=== PATIENT | male | born 1945 | race Caucasian/White ===

== ENCOUNTER → 2018-08-07 | Outpatient (CLI) | payer MEDICARE, OTHER ==
[~2018-08-07] MED LIST: IOHEXOL 350 MG/ML 100 ML (OMNIPAQUE 350) VIAL IV ONE; NS 250 ML (IVPB) BAG IV ONE; RECEIVED CONTRAST (Hold Metformin) IV SCH
[2018-08-07 07:52] LABS: CREATININE SERUM 1.25 MG/DL (0.60-1.30)
--- NOTE | 2018-08-07 09:39 | Diagnostic Imaging Report ---
PROCEDURE: CT head with and without contrast. TECHNIQUE: Multiple contiguous axial images were obtained through the brain before and after the administration of intravenous contrast. INDICATION: Atrial fibrillation and melanoma. No prior studies are available for comparison. Ventricles and sulci are consistent with the patient's age. No sulcal effacement, midline shift or hemorrhage is detected. No abnormal enhancement following contrast administration is identified. Cisterns are patent. The visualized paranasal sinuses are clear. IMPRESSION: Unremarkable pre-and postcontrast CT of the brain. Dictated by: Dictated on workstation # [id number]
== END ==
LOC: RAD 07:26
PROVIDERS: ATTEND Internal Medicine Cardiovascular Disease
DX: C43.9 Malignant melanoma of skin, unspecified (principal); E66.9 Obesity, unspecified; I48.91 Unspecified atrial fibrillation
CPT/HCPCS: 36415; 70470; 82565; 84520

== ENCOUNTER 2022-02-22 13:12 | Emergency (ER) | payer MEDICARE, OTHER ==
[~2022-02-22] VITALS: Ht 186 cm; Wt 106.6 kg
[2022-02-22] MEDS ORDERED: LIDOCAINE/EPI 1%-1:100,000 (XYLOCAINE) 10 ML ONE (13:45)
--- NOTE | 2022-02-22 13:56 | ED Fall/Injury ---
General Chief Complaint: Trauma-Non Activation Stated Complaint: FALL Source: patient, family Exam Limitations: no limitations (ELLEN RAYMUNDO) History of Present Illness Date Seen by Provider: February 22, 2022 Time Seen by Provider: 13:54 Initial Comments Patient is a 76-year-old male with a history of dementia presents ED by EMS for head injury, left knee pain, left shoulder pain. Patient fell this afternoon within the past hour. Patient was supposedly walking down a slope when he slipped hitting the concrete with his face resulting in a forehead abrasion and abrasion to his nose. According to at bedside she states they were at [employer] and she lost track of him. Patient states he was going to the bathroom but never returned. He was found wandering. Patient cannot recall how he got there. History of falls in the past. According to family they are concerned that patient may have underlying dementia and possible previous stroke. Acc ording to patient's son of a aneurysm. Patient is on Eliquis currently for 1 week. Patient reports some mild facial pain secondary to the fall. He states the left knee and left shoulder has some mild pain and discomfort but normal range of motion. Mild bleeding to the nose. Denies any back pain, chest pain, shortness of breath, abdominal pain, visual changes, unilateral muscle weakness or sensory changes, ear pain fever, chills, visual changes. Alert and orient x3. Patient moving all extremities without difficulties. According to she feels like patient is at his current baseline. (ELLEN RAYMUNDO) Allergies and Home Medications Allergies Coded Allergies: No Allergy Information Available (Unverified , 08/07/18) Patient Home Medication List Home Medication List Reviewed: Yes (ELLEN RAYMUNDO) Review of Systems Review of Systems Constitutional: No chills, No diaphoresis, No malaise, No weakness Eyes: Denies Blurred Vision, Denies Decreased Acuity, Denies Photophobia, Denies Previous Injury, Denies Vision Changes Ears, Nose, Mouth, Throat: denies ear pain, denies ear discharge, denies nose discharge, denies mouth pain Respiratory: No cough, No dyspnea on exertion Cardiovascular: No chest pain, No edema, No palpitations Gastrointestinal: No abdominal pain, No diarrhea, No nausea, No vomiting Genitourinary: No decreased output Skin: other (Abrasion, laceration) (ELLEN RAYMUNDO) All Other Systems Reviewed Negative Unless Noted: Yes (ELLEN RAYMUNDO) Physical Exam Vital Signs Vital Signs - First Documented 02/22/22 13:15 Temp 37.1 Pulse 92 Resp 20 B/P (MAP) 147/112 (124) Pulse Ox 97 (MEY RODRIGUEZ MD) Vital Signs Capillary Refill : (ELLEN RAYMUNDO) Height, Weight, BMI Height: '" Weight: lbs. oz. kg; BMI Method: General Appearance: WD/WN, no apparent distress HEENT: PERRL/EOMI, normal ENT inspection, TMs normal, pharynx normal, other (No bleeding in the ear canal or bleeding behind the ears.) Neck: other (C-collar in place) Cardiovascular: regular rate, rhythm, no edema, no gallop, no JVD Respiratory: chest non-tender, lungs clear, normal breath sounds, no respiratory distress Gastrointestinal: normal bowel sounds, non tender, soft, no organomegaly, no pulsatile mass Back: normal inspection, no CVA tenderness, no vertebral tenderness Extremities: other (Tenderness to palpate left anterior knee with abrasion. Mild swelling. Normal passive and active range of motion. No obvious bone deformity. Tenderness to left anterior shoulder with normal range of motion with pain and discomfort. No obvious bone deformity. Neurovascular intact. 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 Mild bleeding to the anterior nasal bridge. Skin abrasion noted overlying the nasal bridge.) (ELLEN RAYMUNDO) Mulberry Coma Score Best Eye Response: (4) Open Spontaneously Best Verbal Response: (5) Oriented Best Motor Response: (6) Obeys Commands Nancy Total: 15 (ELLEN RAYMUNDO) Procedures/Interventions Wound Location: Nose Other Wound Location nose Wound Length (cm): 1 Wound's Depth, Shape: superficial Wound Explored: clean Irrigated w/ Saline (ccs): 100 Betadine Prep?: Yes Anesthesia: 1% Lidocaine Volume Anesthetic (ccs): 1 Suture: Ethlion Number of Sutures: 3 Layer Closure?: 1 2 superficial sutures were placed. One purse string stitch to help with bleed. (ELLEN RAYMUNDO) Progress/Results/Core Measures Results/Orders Lab Results Laboratory Tests Test 02/22/22 13:25 Range/Units White Blood Count 7.4 4.3-11.0 10^3/uL Red Blood Count 4.71 4.30-5.52 10^6/uL Hemoglobin 13.3 13.3-17.7 g/dL Hematocrit 41 40-54 % Mean Corpuscular Volume 87 80-99 fL Mean Corpuscular Hemoglobin 28 25-34 pg Mean Corpuscular Hemoglobin Concent 33 32-36 g/dL Red Cell Distribution Width 14.6 H 10.0-14.5 % Platelet Count 189 130-400 10^3/uL Mean Platelet Volume 10.4 9.0-12.2 fL Immature Granulocyte % (Auto) 0 % Neutrophils (%) (Auto) 64 42-75 % Lymphocytes (%) (Auto) 25 12-44 % Monocytes (%) (Auto) 9 0-12 % Eosinophils (%) (Auto) 1 0-10 % Basophils (%) (Auto) 0 0-10 % Neutrophils # (Auto) 4.8 1.8-7.8 10^3/uL Lymphocytes # (Auto) 1.8 1.0-4.0 10^3/uL Monocytes # (Auto) 0.7 0.0-1.0 10^3/uL Eosinophils # (Auto) 0.1 0.0-0.3 10^3/uL Basophils # (Auto) 0.0 0.0-0.1 10^3/uL Immature Granulocyte # (Auto) 0.0 0.0-0.1 10^3/uL Prothrombin Time 16.5 H 12.2-14.7 SEC INR Comment 1.3 0.8-1.4 Activated Partial Thromboplast Time 34 24-35 SEC Sodium Level 141 135-145 MMOL/L Potassium Level 3.5 L 3.6-5.0 MMOL/L Chloride Level 103 98-107 MMOL/L Carbon Dioxide Level 23 21-32 MMOL/L Anion Gap 15 H 5-14 MMOL/L Blood Urea Nitrogen 25 H 7-18 MG/DL Creatinine 1.25 0.60-1.30 MG/DL Estimat Glomerular Filtration Rate 60 BUN/Creatinine Ratio 20 Glucose Level 129 H 70-105 MG/DL Calcium Level 10.1 8.5-10.1 MG/DL Corrected Calcium 10.3 H 8.5-10.1 MG/DL Total Bilirubin 1.1 H 0.1-1.0 MG/DL Aspartate Amino Transf (AST/SGOT) 25 5-34 U/L Alanine Aminotransferase (ALT/SGPT) 23 0-55 U/L Alkaline Phosphatase 77 40-136 U/L Total Protein 6.5 6.4-8.2 GM/DL Albumin 3.8 3.2-4.5 GM/DL (MEY RODRIGUEZ MD) Medications Given in ED Current Medications Medications Dose Ordered Sig/Eliezer Route Start Time Stop Time Status Last Admin Dose Admin Diphtheria/ Tetanus/Acell Pertussis 0.5 ml ONCE ONCE IM 02/22/22 15:45 02/22/22 15:46 DC 02/22/22 15:49 0.5 ML Lidocaine/ Epinephrine 10 ml STK-MED ONCE .ROUTE 02/22/22 13:45 02/22/22 13:47 DC 02/22/22 13:46 2 ML (MEY RODRIGUEZ MD) Vital Signs/I&O 02/22/22 02/22/22 13:15 15:45 Temp 37.1 Pulse 92 100 Resp 20 14 B/P (MAP) 147/112 (124) 140/88 Pulse Ox 97 96 (MEY RODRIGUEZ MD) Departure Communication (PCP) Patient with a fall today. Unclear the cause of the fall likely mechanical with a history of fall. Patient on arrival neurologically intact. Moving all extremities. Alert and orient x3. GCS 15. Does have abrasion to the forehead and active bleeding to the nasal bridge. Stitch a pursestring stitch to control bleeding. Patient was placed on Eliquis 1 week ago. Patient was placed in c- collar by EMS. Denies of any thoracic or lumbar midline tenderness. No chest pain, short of breath or abdominal pain. Complain of left shoulder left knee pain with some mild. X-rays of left shoulder and ankle are unremarkable. Radiology called concern for acute hemorrhaging in the right occipital lobe with small amount in the right lateral ventricle. No midline shift. Mild edema with mild mass-effect. C-collar was removed secondary to negative CT scan of the cervical spine. C-collar removed and cleared. Does have a nasal bone fracture without evidence of nasal septal hematoma at this time.. Patient was given a tetanus shot. Patient will be transferred by air secondary to no ground assets at this time to [facility]. Discussed patient with Dr. Dejesus neurosurgery at [facility] who recommends transfer to the ER. Discussed patient with Dr. Russell ER physician who will accept patient there in the ER. Blood pressure at discharge 140/88 at discharge. Neurologically intact (ELLEN RAYMUNDO) Impression Primary Impression: Brain bleed Disposition: XFER SHT-TRM HOSP Condition: Stable Transfer Transfer Reason: Exceeds level of care Time Spoke to Accepting Phy: 15:42 Transfer Progress Notes Patient will be transferred via air to accepting physician Dr. Russell ER physician. Patient was discussed with Dr. Dejesus neurosurgery who recommends transfer at this time Transfer Time: 15:42 Transfer Facility: [facility] Method of Transfer: Air (ELLEN RAYMUNDO) Departure-Patient Inst. Referrals: MARY HARRIS MD (PCP/Family) Primary Care Physician ATTENDING PHYSICIAN NOTE: I was physically present as attending physician in the emergency department during the care of this patient, but I was not directly involved in the decision making or delivery of care for this patient. Dr. Lomas, trauma surgeon on- call, was notified of transfer and agreeable. (MEY RODRIGUEZ MD) ELLEN RAYMUNDO February 22, 2022 13:56 MEY RODRIGUEZ MD February 22, 2022 19:43
[2022-02-22 14:10] LABS: BASOPHILS % (AUTO) 0 % (0-10); EOSINOPHILS # (AUTO) 0.1 10^3/uL (0.0-0.3); EOSINOPHILS % (AUTO) 1 % (0-10); HEMATOCRIT 41 % (40-54); HEMOGLOBIN 13.3 g/dL (13.3-17.7); LYMPHOCYTES # (AUTO) 1.8 10^3/uL (1.0-4.0); LYMPHOCYTES % (AUTO) 25 % (12-44); MEAN CORPUSCULAR HEMOGLOBIN 28 pg (25-34); MEAN CORPUSCULAR HGB CONC 33 g/dL (32-36); MEAN CORPUSCULAR VOLUME 87 fL (80-99); MEAN PLATELET VOLUME 10.4 fL (9.0-12.2); MONOCYTES # (AUTO) 0.7 10^3/uL (0.0-1.0); MONOCYTES % (AUTO) 9 % (0-12); NEUTROPHILS # (AUTO) 4.8 10^3/uL (1.8-7.8); NEUTROPHILS % (AUTO) 64 % (42-75); PLATELET COUNT 189 10^3/uL (130-400); WHITE BLOOD COUNT 7.4 10^3/uL (4.3-11.0)
[2022-02-22 14:14] LABS: ALBUMIN 3.8 GM/DL (3.2-4.5); INR 1.3 (0.8-1.4); PROTHROMBIN TIME PATIENT 16.5 SEC (12.2-14.7)
[2022-02-22 14:15] LABS: POTASSIUM 3.5 MMOL/L (3.6-5.0)
[2022-02-22 14:16] LABS: CALCIUM 10.1 MG/DL (8.5-10.1)
[2022-02-22 14:17] LABS: TOTAL PROTEIN 6.5 GM/DL (6.4-8.2)
[2022-02-22 14:19] LABS: BILIRUBIN,TOTAL 1.1 MG/DL (0.1-1.0)
[2022-02-22 14:21] LABS: CREATININE SERUM 1.25 MG/DL (0.60-1.30)
--- NOTE | 2022-02-22 14:34 | Diagnostic Imaging Report ---
INDICATION: Fall with pain FINDINGS: Three view left shoulder reveals acromioclavicular and glenohumeral osteoarthritis. No fracture or joint separation; however, no opaque loose body. No bony erosion. The left lung, visualized ribs and pleura are unremarkable. IMPRESSION: Arthritic changes but no acute-appearing abnormality. Dictated by: Dictated on workstation # [id number]
--- NOTE | 2022-02-22 14:39 | Diagnostic Imaging Report ---
INDICATION: Fall with pain. FINDINGS: The lateral view showed no convincing evidence for a joint effusion. There is tricompartmental arthritis and meniscal calcifications laterally. Some spurring off the patellar poles and relatively mild lateral greater than medial tibiofemoral compartmental arthritic joint space narrowing. No suspicious foreign body. No loose body. No fracture. IMPRESSION: Degenerative changes as described. No fracture or acute-appearing abnormality apparent. Dictated by: Dictated on workstation # [id number]
--- NOTE | 2022-02-22 15:11 | Diagnostic Imaging Report ---
PROCEDURE: CT head, face, and cervical spine without contrast. TECHNIQUE: Multiple contiguous axial images were obtained through the head, neck, and facial bones without the use of intravenous contrast. Sagittal and coronal reformations through the cervical spine and facial bones were also performed. Auto Exposure Controls were utilized during the CT exam to meet ALARA standards for radiation dose reduction. DATE: February 22, 2022. COMPARISON: CT head August 07, 2018. INDICATION: 76-year-old male, fall. Head and neck pain. FINDINGS: There is no identified skull fracture. There is proportional prominence of the ventricles and additional CSF spaces consistent with mild cerebral volume loss. There is an acute intraparenchymal hemorrhage involving the right occipital lobe with adjacent edema and associated mild mass effect. The overall size of the area of acute blood product measures approximately 5.8 x 2.9 x 2.7 cm. There is likely extension of a small amount of blood product into the right lateral ventricle. There is no hydrocephalus. There is no identified subdural or epidural hematoma. The temporomandibular joints are normally aligned. The mandible is intact. There is a mildly displaced right nasal bone fracture and a mildly displaced left nasal bone fracture. There is associated adjacent soft tissue swelling. There is deviation of the bony nasal septum to the right of midline. There is no additional identified acute maxillofacial bone fracture. The globes are grossly intact. There is no retro-orbital hematoma. There is no identified facet joint subluxation or dislocation. There are advanced left facet degenerative changes at C4-C5. There is no asymmetric widening of the cervical disc spaces. There is no prominent prevertebral soft tissue swelling. There are multilevel disc degenerative changes of the cervical spine. There are multilevel posterior disc osteophyte complexes. CT is limited for assessment of disc pathology as well as additional nonbony causes of pathology in the spinal canal. There is chondrocalcinosis. There is arthritis at the C1-C2 articulation. There is no identified acute fracture of the cervical spine. IMPRESSION: 1. Acute hemorrhage involving the right occipital lobe with adjacent edema and mild mass effect. No midline shift. There is extension of a small amount of blood product into the right lateral ventricle without hydrocephalus. This potentially could reflect a hemorrhagic contusion or other hemorrhagic lesion including underlying neoplasm or vascular malformation. Follow-up pre and post contrast MRI brain when clinically appropriate is recommended. 2. Mildly displaced fractures of the right and left nasal bones. 3. No identified acute fracture of the cervical spine. 4. Multilevel advanced degenerative changes of the cervical spine. Findings called at 1454 hours on February 22, 2022. Dictated by: Dictated on workstation # [id number]
[2022-02-22 15:45] VITALS: BP 140/88
[2022-02-22] MEDS ORDERED: TETANUS,DIPTH,PERTUSS P/F (BOOSTRIX) 0.5 ML VIAL IM ONE (15:45)
== END 2022-02-22 15:58 | disposition short-term general hospital (02) ==
LOC: EDUNIT# 13:12 → ER 13:13
DX: S02.2XXA Fracture of nasal bones, initial encounter for closed fracture (principal); S00.81XA Abrasion of other part of head, initial encounter; S80.212A Abrasion, left knee, initial encounter; M25.512 Pain in left shoulder; F03.90 Unspecified dementia, unspecified severity, without behavioral disturbance, psychotic disturbance, mood disturbance, and anxiety; Z23 Encounter for immunization; Z91.81 History of falling; Z79.01 Long term (current) use of anticoagulants; W01.198A Fall on same level from slipping, tripping and stumbling with subsequent striking against other object, initial encounter
CPT/HCPCS: 36415; 70450; 70486; 72125; 73030; 73562; 80053; 85025; 85610; 85730; 90715

== ENCOUNTER 2022-11-10 01:33 | Inpatient (IN) | payer MEDICARE, OTHER ==
[~2022-11-10] VITALS: Ht 177.8 cm; Wt 89.1 kg
[2022-11-10] VITALS (7 sets, daily range): BP systolic 75–132; BP diastolic 51–78
[2022-11-10] MEDS ORDERED: LIDOCAINE UROJET 2% GEL 10 ML PKG TOP ONE (01:45)
[2022-11-10] MEDS ORDERED: NS IV 1000 ML 1,000 ML IV SCH (01:45)
[2022-11-10 01:48] LABS: ABG BASE EXCESS -2.2 MMOL/L (-2.5-2.5); ABG OXYGEN SATURATION 100 % (94-100); ABG PCO2 36 MMHG (35-45); ABG PO2 173 MMHG (79-93); ABG TCO2 22.9 MMOL/L (21.0-31.0)
[2022-11-10 01:49] LABS: ALLENS TEST YES-POS; INSPIRED O2 15L; PATIENT TEMP 37.1; VENTILATOR NO
[2022-11-10 01:59] LABS: BASOPHILS # (AUTO) 0.1 10^3/uL (0.0-0.1); BASOPHILS % (AUTO) 0 % (0-10); EOSINOPHILS % (AUTO) 0 % (0-10); HEMATOCRIT 37 % (40-54); HEMOGLOBIN 11.5 g/dL (13.3-17.7); LYMPHOCYTES # (AUTO) 0.8 10^3/uL (1.0-4.0); LYMPHOCYTES % (AUTO) 5 % (12-44); MEAN CORPUSCULAR HEMOGLOBIN 28 pg (25-34); MEAN CORPUSCULAR HGB CONC 31 g/dL (32-36); MEAN CORPUSCULAR VOLUME 90 fL (80-99); MEAN PLATELET VOLUME 9.7 fL (9.0-12.2); MONOCYTES # (AUTO) 0.5 10^3/uL (0.0-1.0); MONOCYTES % (AUTO) 4 % (0-12); NEUTROPHILS # (AUTO) 13.5 10^3/uL (1.8-7.8); NEUTROPHILS % (AUTO) 90 % (42-75); PLATELET COUNT 289 10^3/uL (130-400); WHITE BLOOD COUNT 15.1 10^3/uL (4.3-11.0)
--- NOTE | 2022-11-10 02:03 | ED General ---
General Chief Complaint: Unresponsive Stated Complaint: UNRESPONSIVE Nursing Triage Note: PT TO RM 3 VIA [facility] FROM HOME. EMS REPORTS PT HAS BEEN UNRESPONSIVE X2 HRS, 100J CARDIOVERSION BY EMS EN ROUTE TO ED. PT NONVERBAL AT BASELINE. 20G L AC SL INITIATED BY EMS, PATENT UPON ARRIVAL TO ED W 1L NS INFUSING. History of Present Illness Date Seen by Provider: Nov 10, 2022 Time Seen by Provider: 01:33 Initial Comments PT ARRIVES VIA [facility] FROM HOME PT HAS BEEN UNRESPONSIVE FOR THE LAST FEW HOURS (ONSET IS UNKNOWN) EMS REPORT THAT THEY WERE TOLD THAT HE WAS "NORMAL ON FRIDAY" EMS REPORT THAT PT HAD HEART RATE 180'S-190'S, WITH BP 80/40, AND THE ATTEMPTED CARDIOVERSION X 1 AT 100 J. PT WITH LABORED BREATHING, AND EMS PLACED PT ON 15 L/ NRB MASK. THEY DID NOT REPORT WHAT INITIAL O2 SATURATION WAS. BLOOD GLUCOSE 249 FOR EMS. EMS REPORT THAT PT IS NON-VERBAL AT BASELINE, AND HAS HISTORY OF DEMENTIA, AND STROKES. SPOKE WITH AND SON SHORTLY AFTER PT'S ARRIVAL, BOTH ARE EXTREMELY POOR HISTORIANS. THEY DO NOT KNOW HIS MEDICATIONS OR ANY OF HIS DIAGNOSES. STATES THAT HE HAS BEEN "GURGLING" ALL DAY / Friday11/09/22-SINCE HE WOKE UP SHE CLAIMS THAT HE ATE DINNER AROUND [phone] AND "WAS FINE". SOMETIME AFTER THAT HE HAD DECREASED MENTAL STATUS AND WOULD NOT RESPOND-- HAS NO IDEA WHEN THIS STARTED. IT IS VERY UNCLEAR AND VERY DIFFICULT TO OBTAIN FROM PT'S AND SON WHAT PT'S BASELINE MENTAL FUNCTION IS. PCP: DR. HARRIS Allergies and Home Medications Allergies Coded Allergies: No Known Allergies (Verified Allergy, Unknown, 11/10/22) Patient Home Medication List Home Medication List Reviewed: Yes Amlodipine Besylate (Amlodipine Besylate) 5 Mg Tablet, 5 MG PO DAILY, (Reported) Entered as Reported by: OSMANY MOTTA on 11/11/221539 Last Action: Continued Atenolol (Atenolol) 50 Mg Tablet, 50 MG PO DAILY, (Reported) Entered as Reported by: OSMANY MOTTA on 11/11/221539 Last Action: Converted Furosemide (Furosemide) 20 Mg Tablet, 20 MG PO DAILY, (Reported) Entered as Reported by: OSMANY MOTTA on 11/11/221539 Last Action: Continued Gabapentin (Gabapentin) 100 Mg Capsule, 200 MG PO BID, (Reported) Entered as Reported by: OSMANY MOTTA on 11/11/221539 Last Action: Continued Lorazepam (Lorazepam Intensol) 2 Mg/Ml Oral.conc, 0.5 ML PO Q2H PRN for AGITATION OR ANXIETY Prescribed by: DEMAR MCCLAIN on 11/20/22 105 Memantine HCl (Memantine HCl) 10 Mg Tablet, 10 MG PO BID, (Reported) Entered as Reported by: OSMANY MOTTA on 11/11/221539 Last Action: Reviewed Mirtazapine (Mirtazapine) 7.5 Mg Tablet, 7.5 MG PO HS, (Reported) Entered as Reported by: OSMANY MOTTA on 11/11/221539 Last Action: Converted Morphine Sulfate (Morphine Conc. 20mg/ml) 100 Mg/5 Ml (20 Mg/Ml) Solution, 0.5 ML PO Q2H PRN for PAIN OR AIR HUNGER Prescribed by: DEMAR MCCLAIN on 11/20/22 105 Olanzapine (Olanzapine Odt) 5 Mg Tab.rapdis, 5 MG PO BID, (Reported) Entered as Reported by: OSMANY MOTTA on 11/11/221539 Last Action: Continued Tamsulosin HCl (Flomax) 0.4 Mg Cap, 0.4 MG PO HS, (Reported) Entered as Reported by: OSMANY MOTTA on 11/11/221539 Last Action: Continued Review of Systems Review of Systems Constitutional: other (UNABLE TO OBTAIN) Past Wflefgs-Qgecvs-Pxzdhy Hx Patient Social History Smoking Status: Unknown if Ever Smoked Smokeless Tobacco Frequency: Unknown if Ever Used Use of E-Cig and/or Vaping dev: Unable to obtain Use of E-Cig and/or Vaping Seb: Unknown if Ever Used Substance use?: Unable to obtain Alcohol Use?: Unable to obtain Pt feels they are or have been: Unable to obtain Immunizations Up To Date First/Initial COVID19 Vaccinat: UNK Second COVID19 Vaccination Naresh: UNK Third COVID19 Vaccination Date: K COVID19 Vaccine Branch Service Leader: UNK Past Medical History Surgery/Hospitalization HX: DEMENTIA, NONVERBAL, CVA Nursing Suicide Risk Notes: PT UNRESPONSIVE AND NONVERBAL - UNABLE TO ASK Physical Exam Vital Signs Capillary Refill : Less Than 3 Seconds Height, Weight, BMI Height: '" Weight: lbs. oz. kg; 23.00 BMI Method: General Appearance: Severe Distress, Other (PT IS MOANING AT TIMES, OTHEWISE IS UNRESPONSIVE. KEEPS EYES CLOSED. THERE IS A GAIT BELT IN PLACE AROUND HIS ABDOMEN/CHEST. PT DOES HAVE SPONTANEOUS MOVEMENT OF ALL EXTREMITIES BUT IS NOT TALKING OR FOLLOWING ANY COMMANDS OR COMMUNICATING IN ANY WAY. PT IS MALODOROOUS AND VERY UNKEMPT. ) HEENT: PERRL/EOMI Respiratory: Respiratory Distress, Other (SIGNIFICANT UPPER AIRWAY NOISE--UNABLE TO DETERMINE LOWER LUNG SOUNDS, THERE IS SIGNIFICANT UPPER AIRWAY NOISE. ) Cardiovascular: No JVD, Irregularly Irregular, Tachycardia Gastrointestinal: No Pulsatile Mass, Soft Extremity: Other (FINGERS AND FEET VERY COLD, WITH DECREASED CAP REFILL. UNABLE TO PALPATE RADIAL OR PEDAL PULSES. ) Neurologic/Psychiatric: Other (MENTATION NOTED ABOVE. ) Skin: Cool, Pallor, Other Focused Exam Sepsis Stage: Septic Shock Possible Source: Other (PULMONARY AND SKIN/DECUBITUS ULCER) Lactate Level Time of Focused Exam: 02:30 Respiratory: Other (INTUBATED, WITH DIFFUSE RALES / RHONCHI BILATERALLY) Cardiovascular: Irregularly Irregular, Tachycardia Capillary Refill: Greater Than 3 Seconds Skin: cool, pallor Lactic Acid Level Laboratory Tests Test 11/10/22 01:36 Lactic Acid Level 6.12 MMOL/L (0.50-2.00) *H Within 3hrs of presentation: Admin fluids, Admin ABX, Blood cultures prior to ABX's, Focus exam, Lactate level, Vasopressin therapy Procedures/Interventions Intubation Method: orotracheal Tube Size: 7.5 Medications: Fentanyl, Succinylcholine, Versed Positive End Tide CO2: Yes Breath Sounds after Intubation: bilateral-equal Intubation Complications: no complications Post Intubation Xray: Yes SEE NURSING NOTES FOR DETAILS Additional Procedures: cardioversion/defib Progress PT IS IN ATRIAL FIBRILLATION WITH RVR WITH RATE IN 150'S -160'S ON ARRIVAL, AND IS HYPOTENSIVE. PT CARDIOVERTED AT 100 J THEN 150 J, WITH SUCCESSFUL CARDIOVERSION TO NORMAL SINUS RHYTHM. SEE NURSING NOTES FOR DETAILS Progress/Results/Core Measures Suspected Sepsis SIRS Temperature: Pulse: 135 Respiratory Rate: 30 Blood Pressure / Mean: Laboratory Tests 11/10/22 01:36: INR Comment 1.3 Results/Orders Lab Results Laboratory Tests Test 11/10/22 01:35 11/10/22 01:36 11/10/22 01:38 11/10/22 01:44 Range/Units Blood Gas Puncture Site RRAD Blood Gas Patient Temperature 37.1 Arterial Blood pH 7.40 7.37-7.43 Arterial Blood Partial Pressure CO2 36 35-45 MMHG Arterial Blood Partial Pressure O2 173 H 79-93 MMHG Arterial Blood HCO3 22 L 23-27 MMOL/L Arterial Blood Total CO2 22.9 21.0-31.0 MMOL/L Arterial Blood Oxygen Saturation 100 94-100 % Arterial Blood Base Excess -2.2 -2.5-2.5 MMOL/L Tanmay Test YES-POS Blood Gas Ventilator Setting NO Blood Gas Inspired Oxygen 15L White Blood Count 15.1 H 4.3-11.0 10^3/uL Red Blood Count 4.14 L 4.30-5.52 10^6/uL Hemoglobin 11.5 L 13.3-17.7 g/dL Hematocrit 37 L 40-54 % Mean Corpuscular Volume 90 80-99 fL Mean Corpuscular Hemoglobin 28 25-34 pg Mean Corpuscular Hemoglobin Concent 31 L 32-36 g/dL Red Cell Distribution Width 15.9 H 10.0-14.5 % Platelet Count 289 130-400 10^3/uL Mean Platelet Volume 9.7 9.0-12.2 fL Immature Granulocyte % (Auto) 1 % Neutrophils (%) (Auto) 90 H 42-75 % Lymphocytes (%) (Auto) 5 L 12-44 % Monocytes (%) (Auto) 4 0-12 % Eosinophils (%) (Auto) 0 0-10 % Basophils (%) (Auto) 0 0-10 % Neutrophils # (Auto) 13.5 H 1.8-7.8 10^3/uL Lymphocytes # (Auto) 0.8 L 1.0-4.0 10^3/uL Monocytes # (Auto) 0.5 0.0-1.0 10^3/uL Eosinophils # (Auto) 0.0 0.0-0.3 10^3/uL Basophils # (Auto) 0.1 0.0-0.1 10^3/uL Immature Granulocyte # (Auto) 0.1 0.0-0.1 10^3/uL Neutrophils % (Manual) 90 % Lymphocytes % (Manual) 5 % Monocytes % (Manual) 5 % Polychromasia SLIGHT Erythrocyte Sedimentation Rate 31 H 0-30 MM/HR Prothrombin Time 17.0 H 12.2-14.7 SEC INR Comment 1.3 0.8-1.4 Activated Partial Thromboplast Time 34 24-35 SEC D-Dimer 3.83 H 0.00-0.49 UG/ML Lactic Acid Level 6.12 *H 0.50-2.00 MMOL/L B-Type Natriuretic Peptide 1626.2 H <100.0 PG/ML Glucometer 171 H 70-110 MG/DL Influenza Type A (RT-PCR) Not Detected Not Detecte Influenza Type B (RT-PCR) Not Detected Not Detecte SARS-CoV-2 RNA (RT-PCR) Not Detected Not Detecte Sodium Level 153 H 135-145 MMOL/L Potassium Level 3.9 3.6-5.0 MMOL/L Chloride Level 114 H 98-107 MMOL/L Carbon Dioxide Level 21 21-32 MMOL/L Anion Gap 18 H 5-14 MMOL/L Blood Urea Nitrogen 52 H 7-18 MG/DL Creatinine 2.41 H 0.60-1.30 MG/DL Estimat Glomerular Filtration Rate 27 BUN/Creatinine Ratio 22 Glucose Level 188 H 70-105 MG/DL Calcium Level 9.7 8.5-10.1 MG/DL Corrected Calcium 10.4 H 8.5-10.1 MG/DL Magnesium Level 2.3 1.6-2.4 MG/DL Total Bilirubin 1.1 H 0.1-1.0 MG/DL Aspartate Amino Transf (AST/SGOT) 16 5-34 U/L Alanine Aminotransferase (ALT/SGPT) 21 0-55 U/L Alkaline Phosphatase 106 40-136 U/L Ammonia 10 L 11-32 UMOL/L Total Creatine Kinase 105 30-200 U/L Creatine Kinase MB 5.6 <6.6 NG/ML Myoglobin 1033.2 H 10.0-92.0 NG/ML Troponin I < 0.028 <0.028 NG/ML C-Reactive Protein High Sensitivity 10.94 H 0.00-0.50 MG/DL Total Protein 6.5 6.4-8.2 GM/DL Albumin 3.1 L 3.2-4.5 GM/DL Amylase Level 47 25-125 U/L Lipase 21 8-78 U/L TSH Cornish Testing 3.28 0.35-4.94 UIU/ML Serum Alcohol < 10 <10 MG/DL Test 11/10/22 02:02 11/10/22 02:45 Range/Units Urine Color YELLOW Urine Clarity CLEAR Urine pH 5.0 5-9 Urine Specific [place] 1.020 1.016-1.022 Urine Protein NEGATIVE NEGATIVE Urine Glucose (UA) NEGATIVE NEGATIVE Urine Ketones NEGATIVE NEGATIVE Urine Nitrite NEGATIVE NEGATIVE Urine Bilirubin NEGATIVE NEGATIVE Urine Urobilinogen 0.2 < = 1.0 MG/DL Urine Leukocyte Esterase NEGATIVE NEGATIVE Urine RBC (Auto) NEGATIVE NEGATIVE Urine RBC NONE /HPF Urine WBC NONE /HPF Urine Crystals NONE /LPF Urine Bacteria NEGATIVE /HPF Urine Casts NONE /LPF Urine Mucus NEGATIVE /LPF Urine Culture Indicated NO Urine Opiates Screen NEGATIVE NEGATIVE Urine Oxycodone Screen NEGATIVE NEGATIVE Urine Methadone Screen NEGATIVE NEGATIVE Urine Propoxyphene Screen NEGATIVE NEGATIVE Urine Barbiturates Screen NEGATIVE NEGATIVE Ur Tricyclic Antidepressants Screen NEGATIVE NEGATIVE Urine Phencyclidine Screen NEGATIVE NEGATIVE Urine Amphetamines Screen NEGATIVE NEGATIVE Urine Methamphetamines Screen NEGATIVE NEGATIVE Urine Benzodiazepines Screen NEGATIVE NEGATIVE Urine Cocaine Screen NEGATIVE NEGATIVE Urine Cannabinoids Screen NEGATIVE NEGATIVE Urine Legionella pneumophilia Ag Negative Lab Scanned Report Referred Lab Report [id number] Micro Results Microbiology 11/10/22 Gram Stain - Final, Complete 11/10/22 Sputum Culture - Final, Complete Staphylococcus aureus Staphylococcus aureus#2 Gram Pos Mixed Bacterial Guera 11/10/22 Gram Stain - Final, Complete 11/10/22 Wound Culture - Final, Complete Mixed Bacterial Guera With Staphylococcus aureus YEAST 11/10/22 Urine Culture - Final, Complete NO GROWTH 11/10/22 Blood Culture - Final, Complete No growth 11/10/22 Blood Culture - Final, Complete Staphylococcus epidermidis My Orders Orders - MARY HOLLINS DO Accucheck Stat ONCE (11/10/22 01:39) Ed Iv/Invasive Line Start (11/10/22 01:39) Ekg Tracing (11/10/22 01:39) Catheter(Urinary) Insert & Ass 03,15 (11/10/22 01:39) O2 (11/10/22 01:39) Monitor-Rhythm Ecg Trace Only (11/10/22 01:39) Ct Head Wo-R/O Stroke (11/10/22 01:39) Chest 1 View, Ap/Pa Only (11/10/22 01:39) Alcohol (2/5/23 01:39) Ammonia (11/10/22 01:39) Amylase (11/10/22 01:39) Arterial Blood Gas (11/10/22 01:39) Bnp Casey (11/10/22 01:39) Cbc With Automated Diff (11/10/22 01:39) Comprehensive Metabolic Panel (11/10/22 01:39) Creatine Kinase (11/10/22 01:39) Creatine Kinase Mb (11/10/22 01:39) Hs C Reactive Protein (11/10/22 01:39) Fibrin Degradation Products (11/10/22 01:39) Drug Screen Stat (Urine) (11/10/22 01:39) Lactic Acid Analyzer (11/10/22 01:39) Lipase (11/10/22 01:39) Magnesium (11/10/22 01:39) Protime With Inr (11/10/22 01:39) Partial Thromboplastin Time (11/10/22 01:39) Thyroid Analyzer (11/10/22 01:39) Ua Culture If Indicated (11/10/22 01:39) Erythrocyte Sedimentation Rate (11/10/22 01:39) Myoglobin Serum (11/10/22 01:39) Troponin I Casey (11/10/22 01:39) Ed Iv/Invasive Line Start (11/10/22 01:39) Ns Iv 1000 Ml (Sodium Chloride 0.9%) (11/10/22 01:45) Covid 19 Inhouse Test (11/10/22 01:39) Lidocaine 2% (Urojet) (Xylocaine Urojet) (11/10/22 01:45) Influenza A And B By Pcr (11/10/22 01:39) Isolation Central Supply Req (11/10/22 01:39) Cefepime Injection (Maxipime Injection) (11/10/22 02:15) Manual Differential (11/10/22 01:36) Fentanyl Inj (Sublimaze Injection) (11/10/22 02:15) Chest 1 View, Ap/Pa Only (11/10/22 02:26) 1/2 Ns Iv Solution (0.45% Sodium Chlorid (11/10/22 02:30) Propofol Drip (Icu) (Diprivan Drip (Icu) (11/10/22 02:30) Wound Culture (11/10/22 02:29) Blood Culture (11/10/22 02:29) Sputum Culture (11/10/22 02:29) Urine Culture (11/10/22 02:29) Protime With Inr (11/10/22 02:29) Ed Iv/Invasive Line Start (11/10/22 02:29) Ekg Tracing (11/10/22 02:31) Norepinephrine 8 Mg/250 Ml (Norepinephri (11/10/22 02:45) Dexmedetomidine 250 Ml Drip (Precedex Dr (11/10/22 02:45) Dexmedetomidine 250 Ml Drip (Precedex Dr (11/10/22 02:37) Medications Given in ED Vital Signs/I&O Capillary Refill : Less Than 3 Seconds Point of Care Testing Finger Stick Blood Glucose: 171 Blood Glucose Action Taken: DR HOLLINS NOTIFIED Progress Note : Progress Note SEPSIS PROTOCOL INITIATED ON ARRIVAL PT REQUIRED CARDIOVERSION AND INTUBATION SHORTLY AFTER ARRIVAL BP 70'S SYSTOLIC, HR 150'S WITH AFIB/RVR, PT UNABLE TO MAINTAIN AIRWAY, WITH HYPOXIA AND POOR PERFUSION. PT DID CONVERT TO NSR WITH CARDIOVERSION VERY COMPLEX PATIENT, WITH MULTIPLE ISSUES, INCLUDING: -SUSPECTED CVA, WITH ATRIAL FIB/RVR, AND NOT ON ANY ANTICOAGULATION-DUE TO PRIOR TRAUMATIC INTRACRANIAL BLEED WHILE HE WAS ON ELIQUIS. NO CARDIOLOGY CARE -RENAL INSUFFICIENCY/FAILURE--UNABLE TO DO ANY IV CONTRAST CT SCANS DUE TO POOR RENAL FUNCTION. WILL OBTAIN V/Q SCAN TO R/O P.E., AND WILL OBTAIN MRI OF BRAIN TO FURTHER EVALUATE SUSPECTED CVA. -SHOCK--MULTIFACTORIAL--BOTH CARDIOGENIC AND SEPTIC. REQUIRING VASOPRESSORS. -SEPSIS DUE TO PNEUMONIA--LIKELY ASPIRATION, IN ADDITION TO LARGE DECUBITUS SACRAL/COCCYX ULCER WITH CELLULITIS. -RESPIRATORY FAILURE REQUIRING MECHANICAL VENTILATION. -UNDERLYING DEMENTIA, WITH FREQUENT FALLS. ECG Initial ECG Impression Date: Nov 10, 2022 Initial ECG Impression Time: 01:41 Initial ECG Rate: 144 Initial ECG Rhythm: A Fib/Flutter Initial ECG Impression: Nonspecific Changes, Atrial Fibrillation w/RVR Initial ECG Comparisson: No Previous ECG Available EKG : EKG Time: 02:32 Rate: 51 Rhythm: Normal Sinus ECG Impression: Nonspecific Changes Diagnostic Imaging Comments CXR--PATCHY RIGHT SIDED INFILTRATES, PENDING RADIOLOGIST REVIEW POST PROCEDURE CXR--ET TUBE AND NG TUBE IN PROPER PLACEMENT, PENDING RADIOLOGIST REVIEW CT HEAD--NO ACUTE PROCESS, CHRONIC ENCEPHALOMALACIA INVOLVING RIGHT OCCIPITAL REGION AND DIFFUSE UNDERLYING CHRONIC AGE-RELATED CHANGES. PER [facility] RADIOLOGIST VIA PHONE AND VIA FAX AT [phone] Reviewed: Reviewed by Me Critical Care Note Critical Care Start Time: 01:33 Stop Time: 03:45 Total Time (minutes) 132 Departure Communication (Admissions) Family Conversation DISCUSSED AT GREAT LENGTH WITH PT AND SON, AND LATER WITH 2 ADDITIONAL FEMALES, PT'S CRITICAL CONDITION, AND MULTIPLE ISSUES. DISCUSSED AT GREAT LENGTH WHAT HIS CODE STATUS IS, ABOUT THEIR WISHES FOR CPR, VENTILATOR, LIFE SUPPORT MEASURES, ETC--THEY DO NOT STATE WHAT THEY WISH, AND AM NOT SURE THEY COMPREHEND THIS CONCEPT, DESPITE EXPLAINING IN VERY SIMPLE LAYMAN'S TERMS. WILL PROCEED WITH FULL CODE MEASURES AT THIS TIME. 0241--SPOKE WITH DR. MCCLAIN, HOSPITALIST, ACCEPTS PT FOR ADMIT. RECOMMENDATIONS NOTED. 0247--CALLED E-ICU. WILL CALL THEM BACK 0248--SPOKE WITH DR. ZAPATA, CEMENT CONVEYOR OPERATOR, FOR CONSULT, RECOMMENDATIONS NOTED. 0254--SPOKE WITH DR. BRAVO, E-ICU PHYSICIAN, AND GAVE REPORT. Impression Primary Impression: MULTIFACTORIAL SHOCK Additional Impressions: Cardiogenic shock Septic shock ATRIAL FIBRILLATION WITH RVR-S/P CARDIOVERSION SUSPECTED ISCHEMIC CVA Acute respiratory failure RIGHT SIDED PNEUMONIA--SUSPECT ASPIRATION PNEUMONIA SACRAL DECUBITUS ULCER WITH CELLULITIS Dementia Poor mobility RENAL FAILURE/INSUFFICIENCY Disposition: ADMITTED INPATIENT Condition: Critical Admissions Decision to Admit Reason: Admit from ER (General) Decision to Admit/Date: Nov 10, 2022 Time/Decision to Admit Time: 02:45 Departure-Patient Inst. Referrals: MARY HARRIS MD (PCP/Family) Primary Care Physician Scripts Lorazepam (Lorazepam Intensol) 2 Mg/Ml Oral.conc 0.5 ML PO Q2H PRN for AGITATION OR ANXIETY for 7 Days, #30 ML Prov: DEMAR MCCLAIN MD 11/20/22 Morphine Sulfate (Morphine Conc. 20mg/ml) 100 Mg/5 Ml (20 Mg/Ml) Solution 0.5 ML PO Q2H PRN for PAIN OR AIR HUNGER for 7 Days, #30 ML Prov: DEMAR MCCLAIN MD 11/20/22 MARY HOLLINS DO Nov 10, 2022 02:03
[2022-11-10 02:08] LABS: BILIRUBIN,URINE NEGATIVE (NEGATIVE); CLARITY,URINE CLEAR; COLOR,URINE YELLOW; GLUCOSE, URINE (UA) NEGATIVE (NEGATIVE); KETONES,URINE NEGATIVE (NEGATIVE); LEUKOCYTE ESTERASE ,URINE NEGATIVE (NEGATIVE); NITRITE,URINE NEGATIVE (NEGATIVE); PROTEIN,URINE NEGATIVE (NEGATIVE)
[2022-11-10 02:08] LABS: ALBUMIN 3.1 GM/DL (3.2-4.5); CHLORIDE 114 MMOL/L (98-107); POTASSIUM 3.9 MMOL/L (3.6-5.0); SODIUM 153 MMOL/L (135-145)
[2022-11-10 02:09] LABS: CALCIUM 9.7 MG/DL (8.5-10.1)
[2022-11-10 02:10] LABS: AMMONIA 10 UMOL/L (11-32); AMYLASE 47 U/L (25-125)
[2022-11-10 02:11] LABS: FIBRIN DEGRADATION PRODUCTS 3.83 UG/ML (0.00-0.49); INR 1.3 (0.8-1.4)
[2022-11-10 02:11] LABS: GLUCOSE 188 MG/DL (70-105); TOTAL PROTEIN 6.5 GM/DL (6.4-8.2)
[2022-11-10 02:12] LABS: BILIRUBIN,TOTAL 1.1 MG/DL (0.1-1.0); CARBON DIOXIDE 21 MMOL/L (21-32)
[2022-11-10 02:14] LABS: ALKALINE PHOSPHATASE 106 U/L (40-136); CREATININE SERUM 2.41 MG/DL (0.60-1.30); GFR ESTIMATED 27
[2022-11-10 02:15] LABS: BUN/CREATININE RATIO 22
[2022-11-10] MEDS ORDERED: CEFEPIME INJECTION 1,000 MG in NS (IVPB) 50 ML IV ONE (02:15)
[2022-11-10] MEDS ORDERED: fentaNYL INJ 100 MCG/2 ML AMP IVP PRN (02:15)
[2022-11-10 02:17] LABS: ALANINE AMINOTRANSFERASE 21 U/L (0-55); MAGNESIUM 2.3 MG/DL (1.6-2.4)
[2022-11-10 02:18] LABS: CREATINE KINASE 105 U/L (30-200); LIPASE 21 U/L (8-78)
[2022-11-10 02:26] LABS: CREATINE KINASE MB 5.6 NG/ML (<6.6)
[2022-11-10] MEDS ORDERED: 1/2 NS IV SOLUTION 1,000 ML IV SCH (02:30)
[2022-11-10] MEDS ORDERED: PROPOFOL DRIP (ICU) 100 ML IV SCH (02:30)
[2022-11-10 02:32] LABS: LYMPHOCYTES % (MANUAL) 5 %; MONOCYTES % (MANUAL) 5 %; NEUTROPHILS % (MANUAL) 90 %; POLYCHROMASIA SLIGHT
[2022-11-10 02:33] LABS: AMPHETAMINE SCREEN, URINE NEGATIVE (NEGATIVE); BACTERIA,URINE NEGATIVE /HPF; BARBITURATE SCREEN URINE NEGATIVE (NEGATIVE); BENZODIAZEPINES SCREEN URINE NEGATIVE (NEGATIVE); CANNABINOID SCREEN, URINE NEGATIVE (NEGATIVE); COCAINE SCREEN URINE NEGATIVE (NEGATIVE); METHADONE STAT NEGATIVE (NEGATIVE); OPIATE SCREEN URINE NEGATIVE (NEGATIVE); OXYCODONE STAT NEGATIVE (NEGATIVE); PROPOXYPHENE STAT NEGATIVE (NEGATIVE); TRICYCLIC ANTIDEPRESSANTS SCRE NEGATIVE (NEGATIVE)
[2022-11-10 02:33] LABS: ERYTHROCYTE SEDIMENTATION RATE 31 MM/HR (0-30)
[2022-11-10] MEDS ORDERED: DexMEDEtomidine 250 ML DRIP 250 ML IV ONE (02:37)
[2022-11-10 02:39] LABS: TSH (THYROID ANALYZER) 3.28 UIU/ML (0.35-4.94)
[2022-11-10] MEDS ORDERED: NOREPINEPHRINE 8 MG/250 ML 250 ML IV SCH (02:45)
[2022-11-10] MEDS: DexMEDEtomidine 250 ML DRIP 250 ML IV SCH ×2 (02:49→04:33)
[2022-11-10] MEDS ORDERED: ENOXAPARIN 80 MG/0.8 ML (LOVENOX) SYR SC ONE (03:00)
[2022-11-10 03:47] LABS: INR 1.4 (0.8-1.4); PROTHROMBIN TIME PATIENT 17.3 SEC (12.2-14.7)
[2022-11-10] MEDS ORDERED: LACTATED RINGERS 1,000 ML IV ONE (04:21)
[2022-11-10] MEDS ORDERED: EPINEPHrine 1 MG INJECTION 4 MG in NS (IVPB) 248 ML IV SCH (04:30)
[2022-11-10] MEDS: NOREPINEPHRINE 8 MG/250 ML 250 ML IV SCH ×4 (04:34→22:44)
[2022-11-10] MEDS: LACTATED RINGERS 1,000 ML IV SCH ×7 (04:34→20:07)
[2022-11-10] MEDS: VASOPRESSIN INJECTION 20 UNIT in NS (IVPB) 100 ML IV SCH ×2 (04:35→14:44)
[2022-11-10] MEDS ORDERED: ATROPINE INJ 0.4 MG/ML SDV ONE (04:38)
[2022-11-10] MEDS ORDERED: RT-ALBUTEROL SULF 2.5 MG/3 ML PRE-MIX VIAL INH PRN (04:45)
[2022-11-10] MEDS ORDERED: DOPamine DRIP 250 ML IV PRN (05:15)
--- NOTE | 2022-11-10 05:20 | Tele-ICU Progress Note ---
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 Eliquis and ASA were stopped after the fall, eliquis started only 1 week prior to incident. Today he was reported to be in his usual state of health except for some gurgling throughout the day. Became unresonsive around 11:00 pm. Unclear whether abrupt or progressive. He was found to be hypotensive and have RVR in the field, he was shocked without improvement. On arrival shock x2 with conversion to sinus rhythm. He was then intubated for airway protection. Noted to have copious secretions suspicious of aspiriation. Also noted to have a malodorous ulcer on the leg. - sepsis/septic shock: secondary to aspiration pna vs wound infection. UA negative. Cultures pending. Cefepime intiated. On levophed 0.1 mg/kg/hr. Lactic acid downtrending. Fluids given. Echo ordered for AM, shock may have cardiogenic component. - KARSTEN on CKD: From baseline 1.025 to 2.41. Avoid nephrotoxins, further hypotension. Volume resuscitation ongoing. Secondary to ATN in setting of sepsis vs hypovolemia vs rhabdo (see below). - hypernatremia: Secondary to hypovolemia. Currently LR infusing at 250 mls/hr. Should see some improvement with that, if not, change to half normal. Will add free water flushes. - myoglobinemia: unclear etiology. Will trend serum myoglobin, check urine myoglobin. LR at 250 infusing. - afib: Chronic afib not on AC. Cardioverted in ED. Now sinus jann, not regular. occassional PVC, more frequent PACs, intermittent dropped beats which have no discernable pattern. Continue tele monitoring. Cardiology consulted. Therapuetic lovenox given. - bradycardia: Now sinus jann, as above. HR 40, BP 105/68 on low dose levophed. Dopamine ordered PRN, to be ready if HR decrease any further. Will defer starting, high risk for return of RVR with dopamine. Home meds unknown, suspect he is on rate slowing Rx for long standing afib which are now having a prominent effect. Will get prolonged EKG for rhythm determination. - hyperglycemia: sliding scale - wound: wound care consult ordered. Assessed via real-time audiovisual communication system. CCT 32 min Focused Exam Lactate Level 11/10/22 01:36: Lactic Acid Level 6.12*H 11/10/22 03:18: Lactic Acid Level 3.89*H Height, Weight, BMI Height: '" Weight: lbs. oz. kg; 25.24 BMI Method: Lactic Acid Level Laboratory Tests Test 11/10/22 01:36 11/10/22 03:18 Lactic Acid Level 6.12 MMOL/L (0.50-2.00) *H 3.89 MMOL/L (0.50-2.00) *H FLETCHER BRAVO MD Nov 10, 2022 05:20
[2022-11-10 05:28] LABS: BASOPHILS % (AUTO) 0 % (0-10); EOSINOPHILS % (AUTO) 0 % (0-10); HEMATOCRIT 35 % (40-54); HEMOGLOBIN 11.1 g/dL (13.3-17.7); LYMPHOCYTES % (AUTO) 5 % (12-44); MEAN CORPUSCULAR HEMOGLOBIN 28 pg (25-34); MEAN CORPUSCULAR HGB CONC 32 g/dL (32-36); MEAN CORPUSCULAR VOLUME 88 fL (80-99); MEAN PLATELET VOLUME 9.7 fL (9.0-12.2); MONOCYTES # (AUTO) 0.7 10^3/uL (0.0-1.0); MONOCYTES % (AUTO) 4 % (0-12); NEUTROPHILS # (AUTO) 16.5 10^3/uL (1.8-7.8); NEUTROPHILS % (AUTO) 90 % (42-75); PLATELET COUNT 270 10^3/uL (130-400); WHITE BLOOD COUNT 18.4 10^3/uL (4.3-11.0)
[2022-11-10 05:45] LABS: ALBUMIN 2.7 GM/DL (3.2-4.5)
[2022-11-10 05:47] LABS: CALCIUM 8.9 MG/DL (8.5-10.1)
[2022-11-10 05:48] LABS: TOTAL PROTEIN 5.8 GM/DL (6.4-8.2)
[2022-11-10 05:50] LABS: BILIRUBIN,TOTAL 1.2 MG/DL (0.1-1.0)
[2022-11-10 05:51] LABS: PHOSPHORUS 3.5 MG/DL (2.3-4.7)
[2022-11-10 05:52] LABS: CREATININE SERUM 2.16 MG/DL (0.60-1.30)
[2022-11-10 05:55] LABS: MAGNESIUM 2.2 MG/DL (1.6-2.4)
[2022-11-10] MEDS ORDERED: VANCOMYCIN 1500 MG/NS 500 ML IVPB IV ONE ×2 (06:00)
--- NOTE | 2022-11-10 06:40 | Diagnostic Imaging Report ---
INDICATION: A. fib. FINDINGS: There is mild cardiomegaly. There is a right perihilar infiltrate. There is no pleural effusion or pneumothorax. The mediastinum is unremarkable. IMPRESSION: Cardiomegaly with right perihilar infiltrate, suspect for pneumonia. There may be some mild central pulmonary venous congestion. Recommend clinical correlation. Dictated by: Dictated on workstation # [id number]
--- NOTE | 2022-11-10 06:42 | Diagnostic Imaging Report ---
INDICATION: A. fib. COMPARISON: 11/10/2022. FINDINGS: There is cardiomegaly. There is a right perihilar infiltrate. There is mild venous congestion. There is no pneumothorax. The mediastinum is unremarkable. There are now ET and NG tubes, both in satisfactory position. IMPRESSION: Cardiomegaly and mild venous congestion with a right perihilar infiltrate, suspect for pneumonia. Dictated by: Dictated on workstation # [id number]
[2022-11-10] MEDS ORDERED: NS IV 500 ML 500 ML ONE (06:50)
--- NOTE | 2022-11-10 06:57 | Diagnostic Imaging Report ---
CLINICAL INDICATION: Patient unresponsive. EXAM: Axial CT scan of the brain performed without IV contrast. High-resolution axial CT brain images with sagittal and coronal reformations were also created. Auto Exposure Controls were utilized during the CT exam to meet ALARA standards for radiation dose reduction. COMPARISON: CT scan of the head, face, and cervical spine without contrast dated 02/22/2022. FINDINGS: There is no evidence of acute cerebral infarct, intracranial hemorrhage, or gross mass effect. There is no dense vessel sign. There is interval resolution of the previously seen intraparenchymal hemorrhage involving the right occipital lobe with cystic encephalomalacia now seen. The brain parenchymal volume appears appropriate for patient's age. There is normal olivier-white matter distinction. There is no significant midline shift or herniation. There is no evidence of hydrocephalus. The basal cisterns are unremarkable. The skull, extracranial soft tissue, and orbits are unremarkable. The paranasal sinuses are unremarkable. Temporal bones show no significant abnormality. IMPRESSION: 1. There is no CT evidence of an acute intracranial process. There is no dense vessel sign. 2: There is interval resolution of the previously seen right occipital lobe intraparenchymal hemorrhage with cystic encephalomalacia now seen. 3. I agree with the [facility] report. Dictated by: Dictated on workstation # [id number]
[2022-11-10] MEDS: inSUlin ASPART (NovoLOG) 1 UNIT/0.01 ML (CHARGE PER UNIT) SC SCH ×4 (07:00→23:06)
[2022-11-10] MEDS: RT-ALBUTEROL SULF 2.5 MG/3 ML PRE-MIX VIAL INH SCH ×5 (07:23→22:25)
[2022-11-10] MEDS ORDERED: fentaNYL INJ 100 MCG/2 ML AMP IV ONE (08:04)
[2022-11-10] MEDS ORDERED: MIDAZOLAM 5 MG/5 ML (VERSED) VIAL IV ONE (08:04)
[2022-11-10] MEDS ORDERED: SUCCINYLCHOLINE INJ 20 MG/1 ML 10 ML VIAL INJ ONE (08:04)
[2022-11-10] MEDS: PANTOPRAZOLE 40 MG (PROTONIX) VIAL IV SCH (08:11)
[2022-11-10] MEDS ORDERED: metroNIDAZOLE 500MG/100ML IVPB 100 ML IV ONE (08:30)
--- NOTE | 2022-11-10 10:28 | Diagnostic Imaging Report ---
PROCEDURE: US carotid duplex, bilateral. TECHNIQUE: Multiple real-time grayscale images were obtained over the carotid arteries in various projections, bilaterally. Additional spectral analysis and color Doppler duplex images were also obtained. INDICATION: CVA FINDINGS: There are no focally elevated velocities in either internal carotid artery. The ICA/CCA ratios are within normal limits, bilaterally. There is antegrade flow in the vertebral arteries, bilaterally. Grayscale images demonstrate minimal carotid plaque, bilaterally. IMPRESSION: Minimal bilateral carotid plaque however spectral analysis shows no evidence of a hemodynamically significant stenosis in either internal carotid artery. Parameters based on the consensus panel Augustine-Scale and Doppler ultrasound criteria published August 2003, Radiology, Volume 229. DOPPLER (peak systolic velocity M/S Right Left CCA .75 .58 ICA Proximal .50 .55 ICA Mid .37 .52 ICA Distal .38 .59 RATIO .67 1.0 ECA .63 .65 VERT .35 .50 Dictated by: Dictated on workstation # [id number]
--- NOTE | 2022-11-10 10:38 | History & Physical-Hospitalist ---
History of Present Illness HPI/Chief Complaint Pelon Mccarty is a 77 year old male with PMH HTN, T2DM, BPH, dementia, intracranial hemorrhage, sacral ulcer, who presented with altered mental status. His says that he was not acting like himself. He was reportedly "gurgling". She says he was coughing up phlegm. She says he usually talks and is able to recognize his family. She says he walks with help. He has a "lift chair" at home. He has a sacral wound for which he is supposed to start seeing wound care in [place]. She says they bathe him every day. She appeared to be a bit defensive saying that "these things could happen in the hospital or intermediate too". I let her know that it sounds like she has been doing a great job of taking care of him. She says they have been together for 57 years. I educated her on the natural progression of dementia. We discussed poor prognostic factors including debility, sacral ulcers, and aspiration. We discussed that based on his prior status, he will likely not be able to return home and she understood but remains hopeful he will recover. Source: family, RN/MD Exam Limitations: clinical condition Date Seen 11/10/22 Time Seen by a Provider: 10:10 Attending Physician Mai Ryan MD PCP Admitting Physician: Demar Mcclain MD Attending Physician: Demar Mcclain MD Referring Physician Date of Admission Nov 10, 2022 at 02:45 Home Medications & Allergies Home Medications Reviewed patient Home Medication Reconciliation performed by pharmacy medication reconciliations human resources technician and/or nursing. Patients Allergies have been reviewed. Allergies Allergies Coded Allergies No Allergy Information Available ([id number]) Past Zlghpid-Hnucsn-Hqoyqn Hx Patient Social History Marrital Status: Tobacco Use?: No Smoking Status: Unknown if Ever Smoked Smokeless Tobacco Frequency: Unknown if Ever Used Use of E-Cig and/or Vaping dev: Unable to obtain Use of E-Cig and/or Vaping Seb: Unknown if Ever Used Substance use?: Unable to obtain Alcohol Use?: No Pt feels they are or have been: Unable to obtain Immunizations Up To Date First/Initial COVID19 Vaccinat: UNK Second COVID19 Vaccination Naresh: UNK Tetanus Booster (TDap): Unknown Current Status Advance Directives: Unable to obtain Primary Language: [place] Preferred Spoken Language: [place]se Is interpretation needed?: No Sensory deficits: Speech impairment Past Medical History Hypertension Dementia, Stroke (intracranial hemorrhage) Diabetes, Non-Insulin dep Nursing Suicide Risk Notes: PT UNRESPONSIVE AND NONVERBAL - UNABLE TO ASK Family Medical History No Pertinent Family Hx Review of Systems ROS-Unable to Obtain: sedated Constitutional: see HPI Physical Exam Physical Exam Vital Signs Vital Signs - First Documented 11/10/22 11/10/22 11/10/22 01:33 02:18 02:49 Temp 37.1 Pulse 135 Resp 30 B/P (MAP) 83/57 Pulse Ox 100 O2 Delivery Non Rebreather O2 Flow Rate 15.00 FiO2 97 Capillary Refill : Less Than 3 Seconds Height, Weight, BMI Height: '" Weight: lbs. oz. kg; 25.24 BMI Method: General Appearance: No Apparent Distress, WD/WN, Other (intubated and sedated) Neck: Normal Inspection, Supple Respiratory: No Respiratory Distress, Decreased Breath Sounds, Other (intubated and mechanically ventilated) Cardiovascular: Regular Rate, Rhythm, No Murmur Gastrointestinal: Normal Bowel Sounds, Soft Extremity: Normal Inspection, No Pedal Edema Neurologic/Psychiatric: Other (sedated) Skin: Normal Color, Warm/Dry Results Results/Procedures Labs Laboratory Tests 11/10/22 01:36 11/10/22 01:44 11/10/22 05:17 Patient resulted labs reviewed. Imaging: Reviewed Imaging Report Assessment/Plan Admission Diagnosis Septic shock Admission Status: Inpatient Order (span 2 midnights) Reason for Inpatient Admission: Respiratory failure Assessment and Plan Septic shock RML pneumonia Likely aspiration pneumonia Acute respiratory failure with hypoxia Elevated d-dimer Lactic acidosis KARSTEN Elevated troponin SIRS+ with leukocytosis, tachycardia, tachypnea CXR with RML infiltrate IV pressors, now on hold IV fluids Started on Vanc and Cefepime Start Flagyl for anaerobic coverage, possible aspiration Likely type II NSTEMI due to sepsis Elevated d-dimer, unable to perform CT due to renal failure Started on therapeutic Lovenox Lower extremity ultrasound ordered V/Q scan ordered Cardiology consulted TeleICU consulted Dementia Sacral ulcer Poor prognosis Consult wound care Consult palliative care Discussed poor prognosis with History of intracranial hemorrhage Clinically significant Discontinue anticoagulation if/when able Critical Care Critically Ill Patient Diagnosis/Problems Diagnosis/Problems (1) Septic shock Status: Acute (2) Acute respiratory failure Status: Acute Qualifiers: Respiratory failure complication: hypoxia Qualified Codes: J96.01 - Acute respiratory failure with hypoxia (3) PNA (pneumonia) Status: Acute (4) Aspiration pneumonia Status: Acute (5) Lactic acidosis Status: Acute (6) KARSTEN (acute kidney injury) Status: Acute (7) NSTEMI (non-ST elevation myocardial infarction) Status: Acute (8) Poor prognosis Status: Acute (9) Dementia with behavioral disturbance Status: Chronic (10) Advancing dementia Status: Acute (11) Sacral decubitus ulcer Status: Acute (12) History of intracranial hemorrhage Status: Chronic (13) Elevated d-dimer Status: Acute (14) Poor mobility Status: Acute DEMAR MCCLAIN MD Nov 10, 2022 10:38
[2022-11-10] MEDS: metroNIDAZOLE 500MG/100ML IVPB 100 ML IV SCH ×2 (13:04→21:09)
[2022-11-10] MEDS: CEFEPIME INJECTION 1,000 MG in NS (IVPB) 50 ML IV SCH (14:04)
[2022-11-10] MEDS: TAMSULOSIN 0.4 MG (FLOMAX) CAP PO SCH (18:05)
[2022-11-10] MEDS: OLANZapine 5 MG ODT (ZyPREXA ZYDIS) PO SCH (20:06)
[2022-11-10] MEDS: MIRTAZAPINE 15 MG (REMERON) TAB PO SCH (20:07)
[2022-11-10] MEDS: MEMANTINE 10 MG (NAMENDA) TABLET PO SCH (20:07)
[2022-11-10] MEDS ORDERED: ENOXAPARIN 80 MG/0.8 ML (LOVENOX) SYR SC SCH (21:00)
[2022-11-10] MEDS: DexMEDEtomidine 1,000 MCG/250 ML IV SCH (23:08)
[2022-11-11] MEDS: CEFEPIME INJECTION 1,000 MG in NS (IVPB) 50 ML IV SCH (01:16)
[2022-11-11] MEDS: LACTATED RINGERS 1,000 ML IV SCH ×6 (01:17→18:12)
[2022-11-11 02:16] VITALS: BP 117/60
[2022-11-11] MEDS: RT-ALBUTEROL SULF 2.5 MG/3 ML PRE-MIX VIAL INH SCH ×6 (02:16→22:44)
[2022-11-11] MEDS ORDERED: meTOprolol 5 MG/5 ML (LOPRESSOR) VIAL IV ONE (03:00)
[2022-11-11] MEDS ORDERED: meTOprolol 5 MG/5 ML (LOPRESSOR) VIAL ONE (03:00)
[2022-11-11] MEDS: VASOPRESSIN INJECTION 20 UNIT in NS (IVPB) 100 ML IV SCH ×2 (04:22→13:52)
[2022-11-11 04:49] LABS: BASOPHILS % (AUTO) 0 % (0-10); EOSINOPHILS # (AUTO) 0.1 10^3/uL (0.0-0.3); EOSINOPHILS % (AUTO) 1 % (0-10); HEMATOCRIT 28 % (40-54); HEMOGLOBIN 8.7 g/dL (13.3-17.7); LYMPHOCYTES # (AUTO) 0.8 10^3/uL (1.0-4.0); LYMPHOCYTES % (AUTO) 11 % (12-44); MEAN CORPUSCULAR HEMOGLOBIN 27 pg (25-34); MEAN CORPUSCULAR HGB CONC 32 g/dL (32-36); MEAN CORPUSCULAR VOLUME 87 fL (80-99); MEAN PLATELET VOLUME 9.9 fL (9.0-12.2); MONOCYTES # (AUTO) 0.3 10^3/uL (0.0-1.0); MONOCYTES % (AUTO) 5 % (0-12); NEUTROPHILS # (AUTO) 6.1 10^3/uL (1.8-7.8); NEUTROPHILS % (AUTO) 83 % (42-75); PLATELET COUNT 191 10^3/uL (130-400); WHITE BLOOD COUNT 7.3 10^3/uL (4.3-11.0)
[2022-11-11 05:11] LABS: ALBUMIN 2.3 GM/DL (3.2-4.5); BILIRUBIN,TOTAL 0.8 MG/DL (0.1-1.0); CALCIUM 8.5 MG/DL (8.5-10.1); CREATININE SERUM 1.92 MG/DL (0.60-1.30); MAGNESIUM 1.9 MG/DL (1.6-2.4); PHOSPHORUS 3.1 MG/DL (2.3-4.7); POTASSIUM 3.3 MMOL/L (3.6-5.0)
[2022-11-11] MEDS: inSUlin ASPART (NovoLOG) 1 UNIT/0.01 ML (CHARGE PER UNIT) SC SCH ×4 (05:29→23:06)
[2022-11-11] MEDS: metroNIDAZOLE 500MG/100ML IVPB 100 ML IV SCH (05:32)
[2022-11-11] MEDS ORDERED: VANCOMYCIN 750 MG/NS 250 ML IVPB IV SCH ×2 (06:00)
--- NOTE | 2022-11-11 06:23 | Progress Note ---
Standard Progress Note Progress Notes/Assess & Plan Date Seen by a Provider: Nov 11, 2022 Time Seen by a Provider: 06:22 Progress/Assessment & Plan potassium low will replace, Cr is 1.9, has only peripheral IV In a fib with RVR, rate is 160-180, BP 110/70, On levophed @ 0.1 mcg/kg/min, At this point would load with amiodarone and then dose at 1 mg/min configuration consultant notified by RN Sundar Ceja MD Interventions Intermediate-Arrhythmia total time with pt 20 min managing a fib Final Diagnosis a fib with RVR VALE CEJA MD Nov 11, 2022 06:23
[2022-11-11] MEDS ORDERED: AMIODARONE (Pyxis Kit Only) BOLUS 150 MG/3 ML IV ONE (06:26)
[2022-11-11] MEDS ORDERED: NS (IVPB) 100 ML ONE (06:27)
[2022-11-11] MEDS ORDERED: AMIODARONE FOR BOLUS 150 MG in NS (IVPB) 100 ML IV ONE (06:30)
[2022-11-11 06:32] VITALS: BP 93/59
[2022-11-11] MEDS: POTASSIUM CL 10MEQ/50ML IVPB 50 ML IV SCH ×4 (06:52→11:33)
[2022-11-11 06:57] LABS: ABG BASE EXCESS -0.9 MMOL/L (-2.5-2.5); ABG OXYGEN SATURATION 98 % (94-100); ABG PCO2 40 MMHG (35-45); ABG PH 7.39 (7.37-7.43); ABG PO2 85 MMHG (79-93); ABG TCO2 24.5 MMOL/L (21.0-31.0); ALLENS TEST 37.6; INSPIRED O2 30%; PATIENT TEMP 37.6; VENTILATOR YES
[2022-11-11] MEDS: AMIODARONE INJECTION 450 MG in NORMAL SALINE 250 ML IV SCH ×3 (07:30→17:49)
--- NOTE | 2022-11-11 08:29 | Diagnostic Imaging Report ---
INDICATION: Pneumonia Frontal chest obtained at 8:20 a.m. and compared to 11/10/2022. ET tube tip overlies mid trachea. NG tube tip overlies mid stomach. There is some patchy infiltrate in the right lung base which is similar to the prior study. There is no pneumothorax or pleural fluid. Left lung is clear. IMPRESSION: Patchy right basilar infiltrate. Life support lines as above. No pneumothorax or pleural fluid. Dictated by: Dictated on workstation # [id number]
--- NOTE | 2022-11-11 08:33 | Progress Note - Hospitalist ---
Subjective HPI/CC On Admission Date Seen by Provider: Nov 11, 2022 Pelon Mccarty is a 77 year old male with PMH HTN, T2DM, BPH, dementia, intracranial hemorrhage, sacral ulcer, who presented with altered mental status. His says that he was not acting like himself. He was reportedly "gurgling". She says he was coughing up phlegm. She says he usually talks and is able to recognize his family. She says he walks with help. He has a "lift chair" at home. He has a sacral wound for which he is supposed to start seeing wound care in [place]. She says they bathe him every day. She appeared to be a bit defensive saying that "these things could happen in the hospital or longterm too". I let her know that it sounds like she has been doing a great job of taking care of him. She says they have been together for 57 years. I educated her on the natural progression of dementia. We discussed poor prognostic factors including debility, sacral ulcers, and aspiration. We discussed that based on his prior status, he will likely not be able to return home and she understood but remains hopeful he will recover. Subjective/Events-last exam No family at bedside. Patient on vent. No ROS possible. RN reports pt went into a fibw ith RVR overnight. Cardiology entered mid exam and updated on events overnight. Focused Exam Lactate Level 11/10/22 03:18: Lactic Acid Level 3.89*H 11/10/22 05:17: Lactic Acid Level 3.11*H 11/10/22 09:22: Lactic Acid Level 2.71*H Objective Exam Vital Signs Vital Signs Date Time Temp Pulse Resp B/P (MAP) Pulse Ox O2 Delivery O2 Flow Rate FiO2 11/11/22 12:22 154 11/11/22 12:00 36.4 11/11/22 11:34 108/50 11/11/22 11:00 15 96 Mechanical Ventilator 30.00 11/11/22 10:40 30 Capillary Refill : Less Than 3 Seconds General Appearance: Other (sedated on vent) Respiratory: Decreased Breath Sounds, Other (on vent) Cardiovascular: Irregularly Irregular, Tachycardia Gastrointestinal: Normal Bowel Sounds, Non Tender, Soft Back: Other (catheter in place) Extremity: Swelling (trace bilateral lower extremity edema) Neurologic/Psychiatric: Other (sedated, appears comfortable) Results/Procedures Lab Laboratory Tests 11/11/22 04:14 Patient resulted labs reviewed. Imaging: Reviewed Imaging Report Assessment/Plan Assessment and Plan Assess & Plan/Chief Complaint Septic shock RML pneumonia Likely aspiration pneumonia Acute respiratory failure with hypoxia Elevated d-dimer Lactic acidosis KARSTEN Elevated troponin On pressors again IV fluids (6L positive) Started on Vanc and switch to Unasyn Likely type II NSTEMI due to sepsis- cardiology consulted, appreciate recs Elevated d-dimer, unable to perform CT due to renal failure Continue therapeutic Lovenox Lower extremity ultrasound ordered- still pending V/Q scan ordered but likely won't be able to be done on the vent Cardiology consulted TeleICU consulted Dementia Sacral ulcer Poor prognosis Consult wound care Consult palliative care Dr Simon discussed poor prognosis with Granddaughter reported patient's is very resistant to hospice and has been approached regarding this multiple times- will hold off for now History of intracranial hemorrhage Clinically significant Discontinue anticoagulation if/when able Critical Care Critically Ill Patient DHRUV ROWAN MD Nov 11, 2022 08:33
[2022-11-11] MEDS: MEMANTINE 10 MG (NAMENDA) TABLET PO SCH ×2 (09:07→20:43)
[2022-11-11] MEDS: ENOXAPARIN 80 MG/0.8 ML (LOVENOX) SYR SC SCH ×2 (09:07→20:43)
[2022-11-11] MEDS: OLANZapine 5 MG ODT (ZyPREXA ZYDIS) PO SCH ×2 (09:08→20:43)
[2022-11-11] MEDS ORDERED: NS IV 1000 ML 1,000 ML ONE (09:43)
[2022-11-11] MEDS ORDERED: CEFEPIME INJECTION 1,000 MG in NS (IVPB) 50 ML IV SCH (10:00)
--- NOTE | 2022-11-11 10:38 | Anesthesia-Procedure Note ---
Procedures/Interventions Procedure Start/Stop/Diagnosis Date of Procedure: Nov 11, 2022 Start Time: 10:10 Referring Physician: Dr Simon Preprocedural Diagnosis: Respiratory Failure Brief History Pt is intubated in ICU 7. Called for arterial line placement. Stop Time: 10:20 Postprocedural Diagnosis: Same Arterial Line Arterial Line Catheter: 20G Type: Radial (U/S used to ID radial artery) Location: Right Procedure: prepped, draped in sterile fashion (ChloraPrep), good wave-form was obtained, patient tolerated procedure well, no immediate complications, post procedure area cleaned, post procedure dressing applied BRETT OLIVAS DO Nov 11, 2022 10:38
[2022-11-11 10:40] VITALS: BP 96/44
[2022-11-11] MEDS: PANTOPRAZOLE 40 MG (PROTONIX) VIAL IV SCH (10:41)
[2022-11-11] MEDS: AMPICILLIN/SULBACTAM 3 GM/NS 100 ML IVPB IV SCH ×4 (10:42→22:28)
--- NOTE | 2022-11-11 11:23 | Cardiology Progress Note ---
Subjective Date Seen by Provider: Nov 11, 2022 Time Seen by Provider: 07:30 Subjective/Events-last exam Overnight, pt went into AF with RVR to 160s. Given metop 5 iv x 1 and become transiently hypotensive. Now on Levophed. Also, BCx returned showing GPC in clusters. Focused Exam Lactate Level 11/10/22 03:18: Lactic Acid Level 3.89*H 11/10/22 05:17: Lactic Acid Level 3.11*H 11/10/22 09:22: Lactic Acid Level 2.71*H Objective-Cardiology Exam Last Set of Vital Signs Vital Signs 11/11/22 11/11/22 11/11/22 11/11/22 08:00 10:00 10:40 10:42 Temp 37.0 Pulse 156 Resp 18 B/P (MAP) 111/92 (98) Pulse Ox 97 O2 Delivery Mechanical Ventilator O2 Flow Rate 30.00 FiO2 30 I&O Intake and Output 11/11/22 00:00 Intake Total 7515 ml Output Total 1005 ml Balance 6510 ml Intake IV Total 6765 ml Other 750 ml Output Urine Total 1005 ml General: Other (intubated and sedated) HEENT: Atraumatic Neck: Supple, No JVD Lungs: Normal Air Movement, Other (no wheezing, rales or rhonchi) Heart: Other (irreg, irreg, tachycardic nl s1, s2, no m-g-r) Abdomen: Normal Bowel Sounds (hypoactive) Extremities: No Clubbing, No Cyanosis, No Edema Skin: Other (sacral decubitus ulcer) Results Lab Laboratory Tests 11/11/22 04:14 A/P-Cardiology Assessment/Plan Assessment and Plan: ## Septic shock- transient need for pressor support ##RML pneumonia- on vanc/cef/ - flagyl added per ICU - CXR this AM again demonstrates PNA ## AF with RVR: HR to 160s. Amio started by ICU doc. Not much improvedment in H Rs - wean Levophed to off, start neosynephrine (pt with EF of 50% and grade 3 DD) - cont amiodarone as already started - DCCV likely will not be successful in keeping him out of AF- he will revert back into AF given bacteremia - cont lovenox - hold on additional evaristo agents given intermittent pressor requirement ## Bacteremia: Cxs showing GPC in clusters; wound cx demonstrated Staph aereus - no murmur noted on exam and no signficant regurgitation seen on TTE - cont to montior, ? need for FELIZ at some point in future, but likely nidus for infection is sacral decubitus ulcers - agree with wound consult ## Elevated troponin- likely Type II NSTEMI- EF 50%, low normal without regional WMA. Found to have bacteremia - cont to monitor for now ## Hx of ICH () treated conservatively - now on anticoagulation- favor Lovenox 1mg/kg QD given renal insufficiency and hx of ICH but defer to hospitalist ## Goals of care: Pt now transitioned to DNR - poor prognosis, agree with palliative care JONNA ZAPATA MD Nov 11, 2022 11:23
[2022-11-11] MEDS: PHENYLEPHRINE DRIP 250 ML IV SCH ×2 (11:34→22:28)
--- NOTE | 2022-11-11 12:05 | Tele-ICU Progress Note ---
Subjective Date Seen by a Provider: Nov 11, 2022 Time Seen by a Provider: 12:00 Subjective/Events-last exam he is unresponsive and on vent with minimal sedation. sputum ,wound culture growing staph aureus, blood cultures growing gram positive cocci in clusters. abx changed to Vancomycin and unasyn. has afib with rvr, cards on the case, levophed being weaned and being started on phenyepinephrine. not ready for SBT. wound care has seen the patient. Review of Systems ROS PER RN Sepsis Event Evaluation Sepsis Stage: Septic Shock Height, Weight, BMI Height: '" Weight: lbs. oz. kg; 27.01 BMI Method: Focused Exam Lactate Level 11/10/22 03:18: Lactic Acid Level 3.89*H 11/10/22 05:17: Lactic Acid Level 3.11*H 11/10/22 09:22: Lactic Acid Level 2.71*H Exam Exam Patient acknowledged, consented, and participated in this virtual visit which was conducted using real time audio/video Vital Signs Date Time Temp Pulse Resp B/P (MAP) Pulse Ox O2 Delivery O2 Flow Rate FiO2 11/11/22 11:34 170 108/50 11/11/22 11:00 163 15 96 Mechanical Ventilator 30.00 11/11/22 10:42 Mechanical Ventilator 30.00 11/11/22 10:40 156 18 97 30 11/11/22 10:00 144 14 111/92 (98) 97 Mechanical Ventilator 30.00 11/11/22 09:00 152 16 103/76 (85) 97 Mechanical Ventilator 30.00 11/11/22 08:00 142 15 99/76 (84) 97 Mechanical Ventilator 30.00 11/11/22 08:00 37.0 11/11/22 07:30 146 74/56 11/11/22 07:00 170 11/11/22 07:00 170 17 94/70 (78) 95 Mechanical Ventilator 30.00 11/11/22 06:36 189 93/59 11/11/22 06:32 184 16 94 30 11/11/22 06:00 168 16 95/82 (88) 96 Mechanical Ventilator 30.00 11/11/22 05:20 35 11/11/22 05:00 168 16 98/73 (82) 96 Mechanical Ventilator 30.00 11/11/22 04:45 36.6 11/11/22 04:12 136 11/11/22 04:00 158 16 94/64 (76) 95 Mechanical Ventilator 30.00 11/11/22 03:57 164 11/11/22 03:42 95 Mechanical Ventilator 30 11/11/22 03:10 164 117/60 11/11/22 03:00 138 16 100/64 (77) 96 Mechanical Ventilator 30.00 11/11/22 02:36 36.9 Mechanical Ventilator 30.00 11/11/22 02:31 134 11/11/22 02:29 137 11/11/22 02:22 67 16 98 Mechanical Ventilator 30.00 11/11/22 02:16 56 16 98 35 11/11/22 02:00 60 16 120/62 (79) 98 Mechanical Ventilator 35.00 11/11/22 01:53 35 11/11/22 01:45 151 11/11/22 01:00 63 16 118/91 (102) 97 Mechanical Ventilator 35.00 11/11/22 01:00 63 11/11/22 00:00 60 16 106/48 (73) 97 Mechanical Ventilator 35.00 11/10/22 23:59 95 Mechanical Ventilator 35 11/10/22 23:15 58 16 95/57 (75) 97 Mechanical Ventilator 35.00 11/10/22 23:08 62 119/102 11/10/22 23:03 37.0 16 97 Mechanical Ventilator 35.00 11/10/22 22:25 51 16 98 35 11/10/22 22:00 54 16 86/62 (68) 98 Mechanical Ventilator 35.00 11/10/22 21:06 57 16 98/60 (68) 97 Mechanical Ventilator 35.00 11/10/22 20:36 35 11/10/22 20:00 97 Mechanical Ventilator 35 11/10/22 20:00 57 16 103/53 (78) 98 Mechanical Ventilator 35.00 11/10/22 19:43 37.7 11/10/22 19:00 52 16 108/52 (73) 98 Mechanical Ventilator 35.00 11/10/22 19:00 61 11/10/22 19:00 36.2 18 Mechanical Ventilator 35.00 11/10/22 18:40 50 18 98 35 11/10/22 18:00 54 18 93/60 (76) 97 Mechanical Ventilator 35.00 11/10/22 17:00 58 10 102/92 (95) 97 Mechanical Ventilator 35.00 11/10/22 16:44 35 11/10/22 16:00 55 16 95/46 (66) 96 Mechanical Ventilator 35.00 11/10/22 15:56 96 Mechanical Ventilator 35 11/10/22 15:51 Mechanical Ventilator 35.00 11/10/22 15:18 36.3 11/10/22 15:11 50 16 97 35 11/10/22 15:00 51 14 108/59 (78) 97 Mechanical Ventilator 40.00 11/10/22 14:21 11/10/22 14:00 51 10 105/79 (88) 97 Mechanical Ventilator 40.00 11/10/22 13:01 40 11/10/22 13:00 53 11 100/55 (69) 98 Mechanical Ventilator 40.00 11/10/22 12:51 51 I & O 11/11/22 07:00 Intake Total 5165 ml Output Total 780 ml Balance 4385 ml Height & Weight Height: '" Weight: lbs. oz. kg; 27.01 BMI Method: General Appearance: No Apparent Distress, WD/WN, Other (intubated and sedated) Neck: Normal Inspection, Supple Respiratory: No Respiratory Distress, Decreased Breath Sounds, Other (intubated and mechanically ventilated) Cardiovascular: Regular Rate, Rhythm, No Murmur Capillary Refill: Less Than 3 Seconds Extremity: Normal Inspection, No Pedal Edema Neurologic/Psychiatric: Other (sedated) Skin: Normal Color, Warm/Dry Other comments PE PER RN Results Lab Laboratory Tests 11/10/22 01:36 11/10/22 01:44 11/10/22 05:17 11/11/22 04:14 Assessment/Plan Assessment/Plan 1. ACUTE HYPOXIC RESPIRATORY FAILURE DUE TO PNEUMONIA AND SEPSIS. 2.GRAM POSITIVE SEPTIC SHOCK. 3. STAPG AUREUS PNEUMONIA PRESENT ON ADMISSION. 4. DECUBITUS ULCER INFECTION PRESENT ON ADMISSION. 5. ACUTE RENAL FAILURE DUE TO SEPTIC SHOCK. 6. AFIB WITH RVR. 7. AMS DUE TO BASE LINE DENTIA AND METABOLIC ENCEPHALOPATHY PLAN. 1. CONTINUE CURRENT VENT SETTINGS. NOT READY FOR SBT. 2. IV ANTIBIOTICS PER PRIMARY CARE. 3. HYDRATE PATIENT AND MONITOR ELECTROLYTES AND BUN/CR. 4. DVT PROPHYLAXIS AND ULCER PROPHYLAXIS.. 5. AFIB PER CARDS. 6. VASOPRESSORS WILL BE WEANED HE TOLERATES. 7. PICC LINE AND A- LINE TODAY 8. PROGNOSIS POOR. REVIEWED WITH SOCIAL MEDIA SENIOR ASSOCIATEoil burner repairer: Ventilator Management Time spent with patient (mins): 33 ROSAS CORREA MD Nov 11, 2022 12:05
--- NOTE | 2022-11-11 13:36 | Diagnostic Imaging Report ---
CHEST 1 VIEW, AP/PA ONLY Indication: PICC placement Comparison: 11/11/2022 at 8:20 AM Findings: Right PICC has tip terminating in the lower SVC. Stable ET and enteric tubes. Right basilar consolidations are unchanged. No pleural effusion or pneumothorax. Stable cardiac silhouette. Impression: 1. Well-positioned right PICC with tip in the lower SVC. 2. Stable right basilar pulmonary opacities. Dictated by: Dictated on workstation # [id number]
[2022-11-11 14:14] VITALS: BP 105/52
[2022-11-11] MEDS ORDERED: FLU QUAD HIGH DOSE 240 MCG/0.7 ML 2022-23 (FLUZONE) IM ONE (14:30)
--- NOTE | 2022-11-11 15:10 | Wound Care Assessment ---
Wound Care Assessment Date Seen by Provider: Nov 11, 2022 Time Seen by Provider: 15:04 Chief Complaint Sacral ulcer HPI This 77 year old gentleman presented to our facility with severe sepsis. He is currently intubated with need for triple pressor support (levophed, Dopamine and Epinephrine). He is also struggling with atrial fibrillation with RVR. He has anemia, PEM, DM2 and CKD which will also complicate his healing course. Pelon has elevations in CRP and ESR. He was previously at home and had plans [place] [facility] [place] He is currently on Vancomycin, Flagyl and cefepime. Pelon's ulcer is unstageable due to heavy slough/eschar. There is a foul odor and his wound bed does feel spongey. I would not be surprised if Pelon's ulcer is quite deep or even with underlying osteomyelitis. He is not currently a candidate for surgical debridement (due to his globally unstable medical state). I do plan to order santyl with vashe dressings to be changed once daily with adequate off loading. Pelon is seriously ill and his family is in discussions with his primary team about palliative care in light of this fact. We will continue to support as indicated throughout his stay at our facility. Past Medical History: Admits Diabetes Type II, Admits Heart Disease Anemia (etiology unclear), PEM, CKD 3, atrial fibrillation with RVR, septic shock, Dementia, h/o ICH, severe hypotension, RLL pneumonia Smoking Status: Unknown if Ever Smoked Review of Systems Other systems Unable to obtain ROS due to intubation/mental status Exam Vital Signs Date Time Temp Pulse Resp B/P (MAP) Pulse Ox O2 Delivery O2 Flow Rate FiO2 11/11/22 14:14 146 16 97 30 11/11/22 14:00 Mechanical Ventilator 30.00 11/11/22 12:00 36.4 Capillary Refill : Less Than 3 Seconds General Appearance: WD/WN, no apparent distress, other (intubated ) Neurologic/Psychiatric: other (unresponsive) Skin Problem Location: other (sacrum) Wound assessment: [id number]. The epithelialization is none. There is no tunneling or undermining. Drainage is large and serous. Granulation is none. Necrotic is large and slough/eschar. The margins are flat. Wound bed is spongey with associated foul odor Results Laboratory Tests 11/10/22 17:52: Glucometer 113H 11/10/22 23:05: Glucometer 75 11/11/22 02:34: Glucometer 168H 11/11/22 04:14: White Blood Count 7.3, Red Blood Count 3.17L, Hemoglobin 8.7#L, Hematocrit 28L, Mean Corpuscular Volume 87, Mean Corpuscular Hemoglobin 27, Mean Corpuscular Hemoglobin Concent 32, Red Cell Distribution Width 15.7H, Platelet Count 191, Mean Platelet Volume 9.9, Immature Granulocyte % (Auto) 0, Neutrophils (%) (Auto) 83H, Lymphocytes (%) (Auto) 11L, Monocytes (%) (Auto) 5, Eosinophils (%) (Auto) 1, Basophils (%) (Auto) 0, Neutrophils # (Auto) 6.1, Lymphocytes # (Auto) 0.8L, Monocytes # (Auto) 0.3, Eosinophils # (Auto) 0.1, Basophils # (Auto) 0.0, Immature Granulocyte # (Auto) 0.0, Sodium Level 147H, Potassium Level 3.3L, Chloride Level 113H, Carbon Dioxide Level 21, Anion Gap 13, Blood Urea Nitrogen 50H, Creatinine 1.92H, Estimat Glomerular Filtration Rate 35, BUN/Creatinine Ratio 26, Glucose Level 169H, Calcium Level 8.5, Corrected Calcium 9.9, Phosphorus Level 3.1, Magnesium Level 1.9, Total Bilirubin 0.8, Aspartate Amino Transf (AST/SGOT) 15, Alanine Aminotransferase (ALT/SGPT) 13, Alkaline Phosphatase 77, B-Type Natriuretic Peptide 577.7H, Total Protein 5.0L, Albumin 2.3L 11/11/22 06:48: Blood Gas Puncture Site L RAD, Blood Gas Patient Temperature 37.6, Arterial Blood pH 7.39, Arterial Blood Partial Pressure CO2 40, Arterial Blood Partial Pressure O2 85, Arterial Blood HCO3 23, Arterial Blood Total CO2 24.5, Arterial Blood Oxygen Saturation 98, Arterial Blood Base Excess -0.9, Tanmay Test 37.6, Blood Gas Ventilator Setting YES, Blood Gas Inspired Oxygen 30% 11/11/22 12:00: Glucometer 190H Microbiology 11/10/22 MRSA Screen - Final, Complete MRSA not isolated 11/10/22 Gram Stain - Final, Resulted 11/10/22 Wound Culture - Preliminary, Resulted Staphylococcus aureus Mixed Bacterial Guera 11/10/22 Urine Culture - Preliminary, Resulted Culture In Progress 11/10/22 Blood Culture - Preliminary, Resulted Gram Positive Cocci in Cluster Microbiology 11/10/22 MRSA Screen - Final, Complete MRSA not isolated 11/10/22 Gram Stain - Final, Resulted 11/10/22 Sputum Culture - Preliminary, Resulted Staphylococcus aureus Gram Pos Mixed Bacterial Guera 11/10/22 Gram Stain - Final, Resulted 11/10/22 Wound Culture - Preliminary, Resulted Staphylococcus aureus Mixed Bacterial Guera 11/10/22 Urine Culture - Preliminary, Resulted Culture In Progress 11/10/22 Blood Culture - Preliminary, Resulted Gram Positive Cocci in Cluster Assessment/Plan/Dx Assessment: 1. Unstageable pressure ulcer sacrum 2. DM2 3. Anemia of unknown etiology 4. CKD 3 5. PEM 6. Septic shock with severe hypotension and atrial fibrillation with RVR Plan: 1. Cleanse daily with Vashe. Apply thick layer santyl to woundbed. Cover with vashe dampened gauze and secure with allevyn BFD. Change daily and prn for soiling 2. Defer to primary team 3. Defer to primary team 4. Defer to primary team 5. Defer to primary team 6. Defer to primary team PATRICIA LOERA MD Nov 11, 2022 15:10
[2022-11-11] MEDS ORDERED: ATEN50TA PO (15:40)
[2022-11-11] MEDS ORDERED: TMSL.4C PO (15:40)
[2022-11-11] MEDS ORDERED: AMLO-250 PO (15:40)
[2022-11-11] MEDS ORDERED: MEMA10TA57 PO (15:40)
[2022-11-11] MEDS ORDERED: GABA-486 PO (15:40)
[2022-11-11] MEDS ORDERED: FURO20TA4 PO (15:40)
[2022-11-11] MEDS ORDERED: OLAN5TAB23 PO (15:40)
[2022-11-11] MEDS ORDERED: MIRT7.5T8 PO (15:40)
[2022-11-11] MEDS: COLLAGENASE 30 GM (SANTYL) TUBE TP SCH (17:48)
[2022-11-11] MEDS: HYPOCHLOROUS ACID/NaCl (VASHE) 250 ML IR SCH (17:49)
[2022-11-11] MEDS: TAMSULOSIN 0.4 MG (FLOMAX) CAP PO SCH (18:11)
[2022-11-11 18:33] VITALS: BP 129/62
[2022-11-11] MEDS: MIRTAZAPINE 15 MG (REMERON) TAB PO SCH (20:44)
[2022-11-11 22:44] VITALS: BP 143/67
[2022-11-12] MEDS ORDERED: fentaNYL PCA 1,000 MCG/100 ML IV SCH (00:30)
[2022-11-12] MEDS: VASOPRESSIN INJECTION 20 UNIT in NS (IVPB) 100 ML IV SCH ×3 (01:00→23:09)
[2022-11-12] MEDS ORDERED: fentaNYL DRIP PRE-MIX 250 ML IV ONE (01:14)
[2022-11-12] MEDS: fentaNYL DRIP PRE-MIX 250 ML IV SCH ×2 (01:15→14:54)
[2022-11-12] MEDS: LACTATED RINGERS 1,000 ML IV SCH ×4 (01:21→22:00)
[2022-11-12 02:19] VITALS: BP 128/66
[2022-11-12] MEDS: RT-ALBUTEROL SULF 2.5 MG/3 ML PRE-MIX VIAL INH SCH ×6 (02:19→22:22)
[2022-11-12 03:43] LABS: ABG BASE EXCESS -0.9 MMOL/L (-2.5-2.5); ABG OXYGEN SATURATION 99 % (94-100); ABG PCO2 37 MMHG (35-45); ABG PH 7.41 (7.37-7.43); ABG PO2 114 MMHG (79-93); ABG TCO2 24.3 MMOL/L (21.0-31.0)
[2022-11-12 03:47] LABS: ALLENS TEST YES-POS; INSPIRED O2 30%; VENTILATOR YES
[2022-11-12 03:48] LABS: PATIENT TEMP 36.7
[2022-11-12 03:54] LABS: BASOPHILS % (AUTO) 0 % (0-10); EOSINOPHILS # (AUTO) 0.1 10^3/uL (0.0-0.3); EOSINOPHILS % (AUTO) 1 % (0-10); HEMATOCRIT 30 % (40-54); HEMOGLOBIN 9.7 g/dL (13.3-17.7); LYMPHOCYTES # (AUTO) 0.7 10^3/uL (1.0-4.0); LYMPHOCYTES % (AUTO) 8 % (12-44); MEAN CORPUSCULAR HEMOGLOBIN 28 pg (25-34); MEAN CORPUSCULAR HGB CONC 32 g/dL (32-36); MEAN CORPUSCULAR VOLUME 87 fL (80-99); MEAN PLATELET VOLUME 9.8 fL (9.0-12.2); MONOCYTES # (AUTO) 0.4 10^3/uL (0.0-1.0); MONOCYTES % (AUTO) 6 % (0-12); NEUTROPHILS # (AUTO) 6.7 10^3/uL (1.8-7.8); NEUTROPHILS % (AUTO) 85 % (42-75); PLATELET COUNT 190 10^3/uL (130-400); WHITE BLOOD COUNT 7.9 10^3/uL (4.3-11.0)
[2022-11-12 03:59] LABS: ALBUMIN 2.4 GM/DL (3.2-4.5); POTASSIUM 3.7 MMOL/L (3.6-5.0)
[2022-11-12 04:01] LABS: CALCIUM 8.5 MG/DL (8.5-10.1)
[2022-11-12 04:02] LABS: TOTAL PROTEIN 5.2 GM/DL (6.4-8.2)
[2022-11-12 04:04] LABS: BILIRUBIN,TOTAL 0.8 MG/DL (0.1-1.0)
[2022-11-12 04:05] LABS: PHOSPHORUS 2.7 MG/DL (2.3-4.7)
[2022-11-12 04:06] LABS: CREATININE SERUM 1.36 MG/DL (0.60-1.30)
[2022-11-12 04:09] LABS: MAGNESIUM 1.8 MG/DL (1.6-2.4)
[2022-11-12] MEDS ORDERED: TROUGH ORDER-PHARMACY XX ONE (05:00)
[2022-11-12] MEDS: inSUlin ASPART (NovoLOG) 1 UNIT/0.01 ML (CHARGE PER UNIT) SC SCH ×4 (05:35→23:09)
[2022-11-12] MEDS: KCL 20 MEQ TAB (K-DUR) PO SCH (05:48)
[2022-11-12] MEDS: MAGNESIUM 1 GM/100 ML IVPB 100 ML IV SCH ×2 (05:48→05:52)
[2022-11-12] MEDS: POTASSIUM CL 10MEQ/50ML IVPB 50 ML IV SCH ×2 (05:48→05:52)
[2022-11-12] MEDS ORDERED: MAGNESIUM 1 GM/100 ML IVPB 200 ML IV ONE (05:50)
[2022-11-12] MEDS ORDERED: POTASSIUM CL 10MEQ/50ML IVPB 100 ML IV ONE (05:50)
[2022-11-12 06:31] VITALS: BP 120/75
[2022-11-12] MEDS: MEMANTINE 10 MG (NAMENDA) TABLET PO SCH ×2 (08:02→20:38)
[2022-11-12] MEDS: PANTOPRAZOLE 40 MG (PROTONIX) VIAL IV SCH (08:02)
[2022-11-12] MEDS: OLANZapine 5 MG ODT (ZyPREXA ZYDIS) PO SCH ×2 (08:02→20:38)
[2022-11-12] MEDS: ENOXAPARIN 80 MG/0.8 ML (LOVENOX) SYR SC SCH ×2 (08:04→20:38)
--- NOTE | 2022-11-12 08:35 | Cardiology Progress Note ---
Subjective Date Seen by Provider: Nov 12, 2022 Time Seen by Provider: 08:00 Subjective/Events-last exam no acute events overnight. HRs improved from 180s down to 110-140s; On saji intermittenly for MAPs > 65 Focused Exam Lactate Level 11/10/22 03:18: Lactic Acid Level 3.89*H 11/10/22 05:17: Lactic Acid Level 3.11*H 11/10/22 09:22: Lactic Acid Level 2.71*H Objective-Cardiology Exam Last Set of Vital Signs Vital Signs 11/12/22 11/12/22 11/12/22 11/12/22 11/12/22 05:15 06:31 07:00 07:51 08:00 Temp 36.9 Pulse 105 Resp 15 B/P (MAP) 128/66 Pulse Ox 96 O2 Delivery Mechanical Ventilator O2 Flow Rate 30.00 FiO2 30 I&O Intake and Output 11/12/22 00:00 Intake Total 5262 ml Output Total 1825 ml Balance 3437 ml Intake Oral 0 ml IV Total 3762 ml Other 1500 ml Output Urine Total 1675 ml Gastric Drainage Total 150 ml General: Other (intubated and sedated) HEENT: Atraumatic Neck: Supple, No JVD Lungs: Normal Air Movement, Other (no wheezing, rales or rhonchi) Heart: Other (irreg, irreg, tachycardic nl s1, s2, no m-g-r) Abdomen: Normal Bowel Sounds (hypoactive) Extremities: No Clubbing, No Cyanosis, No Edema Skin: Other (sacral decubitus ulcer) Results Lab Laboratory Tests 11/12/22 03:30 A/P-Cardiology Assessment/Plan Assessment and Plan: ## Septic shock- transient need for pressor support ##RML pneumonia- - now on unasyn monotherapy - Sensitivities from Cxs not resulted ## AF with RVR: HR to 160s. Amio started by ICU doc. Not much improvement in HRs - cont neosynephrine gtt (pt with EF of 50% and grade 3 DD) - cont amiodarone as already started - DCCV likely will not be successful in keeping him out of AF- he will revert back into AF given bacteremia - cont lovenox - hold on additional evaristo agents given intermittent pressor requirement - recommend continuing Amiodarone gtt until second set of cultures return negative, then would transition to po- again, suspect bacteremia will drive him back into AF with RVR if not maintained on amio iv ## Bacteremia: Cxs showing GPC in clusters; wound cx demonstrated Staph aereus - no murmur noted on exam and no significant regurgitation seen on TTE - cont to montior, ? need for FELIZ at some point in future, but likely nidus for infection is sacral decubitus ulcers - agree with wound consult - will send surveillance cxs today ## Elevated troponin- likely Type II NSTEMI- EF 50%, low normal without regional WMA. Found to have bacteremia - cont to monitor for now ## Hx of ICH () treated conservatively - now on anticoagulation- favor Lovenox 1mg/kg QD given renal insufficiency and hx of ICH but defer to hospitalist ## Goals of care: Pt now transitioned to DNR - poor prognosis, agree with palliative care JONNA ZAPATA MD Nov 12, 2022 08:35
[2022-11-12] MEDS: AMIODARONE INJECTION 450 MG in NORMAL SALINE 250 ML IV SCH (09:01)
[2022-11-12] MEDS: AMPICILLIN/SULBACTAM 3 GM/NS 100 ML IVPB IV SCH ×4 (09:01→17:19)
[2022-11-12] MEDS: DexMEDEtomidine 1,000 MCG/250 ML IV SCH (09:55)
[2022-11-12 10:04] VITALS: BP 119/61
--- NOTE | 2022-11-12 10:39 | Tele-ICU Progress Note ---
Subjective Date Seen by a Provider: Nov 12, 2022 Time Seen by a Provider: 10:39 Subjective/Events-last exam (Tele-ICU Physician , Progress Note ) Service provided via interactive audio and video telecommunications E-CARE system to a patient admitted to ICU bed in [facility]. Patient is seen today due to persistent need of ICU care Available chart/ vitals / labs / Images reviewed Video assessment done using teleICU camera, rest of exam as per RN Discussed with RN Events overnight : Afebrile hemodynamically stable Respiratory - I/O =+ Drips: lr 150 Pressors- ON OFF - saji VENT SETTINGS and ABG reviewed NOT CANDIDATE for SBTreviewed possible contraindications including Car diovascular Stability /Sedation Score / FI02/PEEP / ABG / CXR/ secretions Sedation, discussed with RN, RASS on fent 75 precedx 0.7 moved spontaneously Consultants: Hospital course: (11/10) 77/M- Unresponsive home 2 hrs, EMS shock enroute, Intubated, Sbrady. Non verbal baseline dementia/cva. (11/11) afib rvr --- dnr--levo and precedex, remains vented 11/12-AC 16 450 30% + 5 A/P ACUTE HYPOXIC RESPIRATORY FAILURE DUE TO PNEUMONIA AND SEPSIS. - INtubated - AC 16 450 30% + 5 - TRY SAT and possible SBT today .GRAM POSITIVE SEPTIC SHOCK ( PNA ans wounds ) - cont abx STAPG AUREUS PNEUMONIA PRESENT ON ADMISSION ( NEG covif flu) - cont abx KARSTEN - hydration - IMPROVING AFIB WITH RVR -amio gtt 11/11 --> - AC with lovenox 80 bid AMS DUE TO BASE LINE DENTIA AND METABOLIC ENCEPHALOPATHY Anemia - stable , probably delutional Lines : R PICC 11/11 , r a line , (Central Line Necessity Reviewed) Adams: + OG: Nutrition: TF to start Analgesia: Anxiety/ delirium VTE Prophylaxis: shorty 80 bid Stress Ulcer Prophylaxis: Plans in collaboration with bedside consultants and IM MDs. Discussed with RN to reach out if any questions or concerns A total of 32 minutes of critical care time was devoted to this patient today, required to treat and/or prevent further deterioration of critical care condition ( as above ) . Sepsis Event Evaluation Height, Weight, BMI Height: '" Weight: lbs. oz. kg; 26.53 BMI Method: Focused Exam Lactate Level 11/10/22 03:18: Lactic Acid Level 3.89*H 11/10/22 05:17: Lactic Acid Level 3.11*H 11/10/22 09:22: Lactic Acid Level 2.71*H Exam Exam Patient acknowledged, consented, and participated in this virtual visit which was conducted using real time audio/video Vital Signs Date Time Temp Pulse Resp B/P (MAP) Pulse Ox O2 Delivery O2 Flow Rate FiO2 11/12/22 10:04 97 16 93 30 11/12/22 10:00 108 15 93 Mechanical Ventilator 30.00 11/12/22 09:55 122 113/56 11/12/22 09:00 117 16 93 Mechanical Ventilator 30.00 11/12/22 08:30 106 16 96/72 (80) 95 Mechanical Ventilator 30.00 11/12/22 08:00 36.9 11/12/22 08:00 111 16 96 Mechanical Ventilator 30.00 11/12/22 07:51 105 11/12/22 07:00 107 15 96 Mechanical Ventilator 30.00 11/12/22 06:31 115 16 96 30 11/12/22 06:00 122 16 96 Mechanical Ventilator 30.00 11/12/22 05:37 30 11/12/22 05:15 128 128/66 11/12/22 05:00 128 16 96 Mechanical Ventilator 30.00 11/12/22 04:21 97 Mechanical Ventilator 30 11/12/22 04:05 133 16 96 Mechanical Ventilator 30.00 11/12/22 03:00 109 16 96 Mechanical Ventilator 30.00 11/12/22 02:19 125 16 96 30 11/12/22 02:13 36.7 Mechanical Ventilator 30.00 11/12/22 02:00 140 16 95 Mechanical Ventilator 30.00 11/12/22 01:15 140 143/67 11/12/22 01:00 111 11/12/22 01:00 111 16 96 Mechanical Ventilator 30.00 11/12/22 00:15 30 11/12/22 00:13 96 Mechanical Ventilator 30 11/12/22 00:00 140 16 96 Mechanical Ventilator 30.00 11/11/22 23:05 Mechanical Ventilator 30.00 11/11/22 23:00 144 16 95 Mechanical Ventilator 30.00 11/11/22 22:44 135 16 97 30 11/11/22 22:35 37.0 11/11/22 22:28 144 129/62 11/11/22 22:00 102 16 95 Mechanical Ventilator 30.00 11/11/22 21:00 130 16 95 Mechanical Ventilator 30.00 11/11/22 21:00 30 11/11/22 20:20 36.7 11/11/22 20:00 97 Mechanical Ventilator 30 11/11/22 20:00 146 16 95 Mechanical Ventilator 30.00 11/11/22 19:00 126 16 96 Mechanical Ventilator 30.00 11/11/22 19:00 37.1 16 Mechanical Ventilator 30.00 11/11/22 19:00 126 11/11/22 18:33 144 21 95 30 11/11/22 18:00 142 15 97 Mechanical Ventilator 30.00 11/11/22 17:12 30 11/11/22 17:00 126 15 97 Mechanical Ventilator 30.00 11/11/22 16:48 36.5 11/11/22 16:04 95 Mechanical Ventilator 30 11/11/22 16:00 141 15 96 Mechanical Ventilator 30.00 11/11/22 15:00 161 18 97 Mechanical Ventilator 30.00 11/11/22 14:14 146 16 97 30 11/11/22 14:00 126 17 97 Mechanical Ventilator 30.00 11/11/22 13:12 30 11/11/22 13:00 152 16 96 Mechanical Ventilator 30.00 11/11/22 12:45 98/62 11/11/22 12:30 133/66 11/11/22 12:22 154 11/11/22 12:15 115/58 11/11/22 12:00 36.4 11/11/22 12:00 95 Mechanical Ventilator 30 11/11/22 12:00 160 12 97 Mechanical Ventilator 30.00 11/11/22 11:45 132/54 11/11/22 11:34 170 108/50 11/11/22 11:10 96/64 11/11/22 11:00 163 15 96 Mechanical Ventilator 30.00 11/11/22 10:42 Mechanical Ventilator 30.00 11/11/22 10:40 156 18 97 30 I & O 11/12/22 07:00 Intake Total 7212 ml Output Total 2150 ml Balance 5062 ml Height & Weight Height: '" Weight: lbs. oz. kg; 26.53 BMI Method: General Appearance: Other (sedated on vent) Neck: Normal Inspection, Supple Respiratory: Decreased Breath Sounds, Other (on vent) Cardiovascular: Irregularly Irregular, Tachycardia Capillary Refill: Less Than 3 Seconds Extremity: Swelling (trace bilateral lower extremity edema) Neurologic/Psychiatric: Other (sedated, appears comfortable) Skin: Normal Color, Warm/Dry Results Lab Laboratory Tests 11/11/22 04:14 11/12/22 03:30 Assessment/Plan Assessment/Plan 1 CRISSY MOORE MD Nov 12, 2022 10:39
[2022-11-12] MEDS ORDERED: fentaNYL INJ 100 MCG/2 ML AMP IVP PRN (11:00)
--- NOTE | 2022-11-12 12:03 | Progress Note - Hospitalist ---
Subjective HPI/CC On Admission Date Seen by Provider: Nov 12, 2022 Pelon Mccarty is a 77 year old male with PMH HTN, T2DM, BPH, dementia, intracranial hemorrhage, sacral ulcer, who presented with altered mental status. His says that he was not acting like himself. He was reportedly "gurgling". She says he was coughing up phlegm. She says he usually talks and is able to recognize his family. She says he walks with help. He has a "lift chair" at home. He has a sacral wound for which he is supposed to start seeing wound care in [place]. She says they bathe him every day. She appeared to be a bit defensive saying that "these things could happen in the hospital or long-term too". I let her know that it sounds like she has been doing a great job of taking care of him. She says they have been together for 57 years. I educated her on the natural progression of dementia. We discussed poor prognostic factors including debility, sacral ulcers, and aspiration. We discussed that based on his prior status, he will likely not be able to return home and she understood but remains hopeful he will recover. Subjective/Events-last exam Pt remains sedated on the vent. No family at bedside. I did speak with them yesterday though and updated on status. Rn reports no concerns today. Focused Exam Lactate Level Objective Exam Vital Signs Vital Signs Date Time Temp Pulse Resp B/P (MAP) Pulse Ox O2 Delivery O2 Flow Rate FiO2 11/13/22 13:00 98 12 95 Mechanical Ventilator 30.00 11/13/22 12:00 36.5 11/13/22 12:00 35 Capillary Refill : Less Than 3 Seconds General Appearance: Other (sedated on vent) Respiratory: Lungs Clear, Other (on vent) Cardiovascular: Irregularly Irregular Gastrointestinal: Normal Bowel Sounds, Non Tender, Soft Genital/Rectal: Other (watters) Neurologic/Psychiatric: Other (sedated, appears comfortable) Results/Procedures Lab Laboratory Tests 11/13/22 03:10 Patient resulted labs reviewed. Imaging: Reviewed Imaging Report Assessment/Plan Assessment and Plan Assess & Plan/Chief Complaint Septic shock RML pneumonia Likely aspiration pneumonia Acute respiratory failure with hypoxia Elevated d-dimer Lactic acidosis KARSTEN Elevated troponin Off pressors Continue Unasyn Likely type II NSTEMI due to sepsis- cardiology consulted, appreciate recs Elevated d-dimer, unable to perform CT due to renal failure Will attempt tomorrow if creatinine continues to improve Continue therapeutic Lovenox Lower extremity ultrasound ordered- still pending V/Q scan ordered but likely won't be able to be done on the vent Cardiology consulted TeleICU consulted Dementia Sacral ulcer Poor prognosis Consult wound care Consult palliative care Dr Simon discussed poor prognosis with Granddaughter reported patient's is very resistant to hospice and has been approached regarding this multiple times- will hold off for now History of intracranial hemorrhage Clinically significant Discontinue anticoagulation if/when able Critical Care Ventilator Management DHRUV ROWAN MD Nov 12, 2022 12:03
[2022-11-12] MEDS ORDERED: AMIODARONE FOR BOLUS 150 MG in NS (IVPB) 100 ML IV ONE (13:00)
--- NOTE | 2022-11-12 13:23 | Diagnostic Imaging Report ---
PROCEDURE: US Venous Lower Ext [place]. TECHNIQUE: Multiple Real-time grayscale images were obtained over the lower extremities in various projections, bilaterally. Additional duplex Doppler and color Doppler images were also obtained. INDICATION: Bilateral leg swelling. EXAMINATIONS: Both grayscale and color Doppler imaging of the deep veins of the upper extremities was performed with waveform analysis. FINDINGS: There is no intraluminal filling defect. Normal continuous flow is seen throughout the deep venous systems of both lower extremities and there is normal response to augmentation. The deep veins compress normally. IMPRESSION: No ultrasound evidence of deep venous thrombosis in either lower extremity. Dictated by: Dictated on workstation # [id number]
[2022-11-12] MEDS: PHENYLEPHRINE DRIP 250 ML IV SCH (14:10)
[2022-11-12 14:21] VITALS: BP 110/63
[2022-11-12] MEDS: TAMSULOSIN 0.4 MG (FLOMAX) CAP PO SCH (17:20)
[2022-11-12 18:56] VITALS: BP 136/68
[2022-11-12] MEDS: MIRTAZAPINE 15 MG (REMERON) TAB PO SCH (20:38)
[2022-11-12 22:22] VITALS: BP 125/91
[2022-11-13] MEDS: AMIODARONE INJECTION 450 MG in NORMAL SALINE 250 ML IV SCH (00:30)
[2022-11-13] MEDS: AMPICILLIN/SULBACTAM 3 GM/NS 100 ML IVPB IV SCH ×6 (00:30→17:45)
[2022-11-13] MEDS: RT-ALBUTEROL SULF 2.5 MG/3 ML PRE-MIX VIAL INH SCH ×6 (02:01→22:17)
[2022-11-13 02:02] VITALS: BP 79/59
[2022-11-13] MEDS: PHENYLEPHRINE DRIP 250 ML IV SCH ×2 (03:22→16:50)
[2022-11-13 03:25] LABS: ABG BASE EXCESS -0.8 MMOL/L (-2.5-2.5); ABG OXYGEN SATURATION 98 % (94-100); ABG PCO2 38 MMHG (35-45); ABG PO2 87 MMHG (79-93); ABG TCO2 24.5 MMOL/L (21.0-31.0)
[2022-11-13 03:26] LABS: ALLENS TEST YES-POS; BASOPHILS % (AUTO) 0 % (0-10); EOSINOPHILS # (AUTO) 0.1 10^3/uL (0.0-0.3); EOSINOPHILS % (AUTO) 1 % (0-10); HEMATOCRIT 31 % (40-54); INSPIRED O2 30%; LYMPHOCYTES # (AUTO) 0.8 10^3/uL (1.0-4.0); LYMPHOCYTES % (AUTO) 7 % (12-44); MEAN CORPUSCULAR HEMOGLOBIN 28 pg (25-34); MEAN CORPUSCULAR HGB CONC 32 g/dL (32-36); MEAN CORPUSCULAR VOLUME 86 fL (80-99); MEAN PLATELET VOLUME 9.5 fL (9.0-12.2); MONOCYTES # (AUTO) 0.5 10^3/uL (0.0-1.0); MONOCYTES % (AUTO) 4 % (0-12); NEUTROPHILS # (AUTO) 10.4 10^3/uL (1.8-7.8); NEUTROPHILS % (AUTO) 87 % (42-75); PATIENT TEMP 37; PLATELET COUNT 191 10^3/uL (130-400); VENTILATOR YES; WHITE BLOOD COUNT 11.9 10^3/uL (4.3-11.0)
[2022-11-13 03:39] LABS: ALBUMIN 2.3 GM/DL (3.2-4.5); POTASSIUM 3.7 MMOL/L (3.6-5.0)
[2022-11-13 03:40] LABS: CALCIUM 8.3 MG/DL (8.5-10.1)
[2022-11-13 03:42] LABS: TOTAL PROTEIN 5.1 GM/DL (6.4-8.2)
[2022-11-13 03:43] LABS: BILIRUBIN,TOTAL 0.6 MG/DL (0.1-1.0)
[2022-11-13 03:45] LABS: CREATININE SERUM 1.21 MG/DL (0.60-1.30); PHOSPHORUS 2.5 MG/DL (2.3-4.7)
[2022-11-13 03:48] LABS: MAGNESIUM 2.1 MG/DL (1.6-2.4)
[2022-11-13] MEDS: MAGNESIUM 1 GM/100 ML IVPB 100 ML IV SCH (05:08)
[2022-11-13] MEDS: KCL 20 MEQ TAB (K-DUR) PO SCH (05:08)
[2022-11-13] MEDS: inSUlin ASPART (NovoLOG) 1 UNIT/0.01 ML (CHARGE PER UNIT) SC SCH ×3 (05:08→18:00)
[2022-11-13] MEDS: POTASSIUM CL 10MEQ/50ML IVPB 50 ML IV SCH ×2 (05:09→05:16)
[2022-11-13] MEDS: LACTATED RINGERS 1,000 ML IV SCH ×3 (05:15→20:23)
[2022-11-13] MEDS: DexMEDEtomidine 1,000 MCG/250 ML IV SCH (06:37)
[2022-11-13 06:59] VITALS: BP 139/76
[2022-11-13] MEDS: OLANZapine 5 MG ODT (ZyPREXA ZYDIS) PO SCH ×2 (07:59→20:23)
[2022-11-13] MEDS: COLLAGENASE 30 GM (SANTYL) TUBE TP SCH (07:59)
[2022-11-13] MEDS: MEMANTINE 10 MG (NAMENDA) TABLET PO SCH ×2 (07:59→20:23)
[2022-11-13] MEDS: PANTOPRAZOLE 40 MG (PROTONIX) VIAL IV SCH (07:59)
[2022-11-13] MEDS: ENOXAPARIN 80 MG/0.8 ML (LOVENOX) SYR SC SCH (07:59)
--- NOTE | 2022-11-13 08:41 | Tele-ICU Progress Note ---
Subjective Date Seen by a Provider: Nov 13, 2022 Time Seen by a Provider: 08:38 Subjective/Events-last exam (Tele-ICU Physician , Progress Note ) Service provided via interactive audio and video telecommunications E-CARE system to a patient admitted to ICU bed in [facility]. Patient is seen today due to persistent need of ICU care Available chart/ vitals / labs / Images reviewed Video assessment done using teleICU camera, rest of exam as per RN Discussed with RN Events overnight : Remains on vent AC 16, Vt 450, FiO2 30%, pt is DNR Pt unresponsive after CP arrest at home, He will bite tube when suctioned, has cough reflex, not much suctioned On IV Unasyn, on admission had S aureus in sputum saji @ 25 11/11 had a fib with RVR, on IV amiodarone 11/12 Doppler legs did not show DVT Has RUE PICC, site looks ok Family not decided on GOC Once BP is better would give IV Lasix, is dependent on IV saji Sepsis Event Evaluation Height, Weight, BMI Height: '" Weight: lbs. oz. kg; 26.63 BMI Method: Focused Exam Lactate Level 11/10/22 09:22: Lactic Acid Level 2.71*H Exam Exam Patient acknowledged, consented, and participated in this virtual visit which was conducted using real time audio/video Vital Signs Date Time Temp Pulse Resp B/P (MAP) Pulse Ox O2 Delivery O2 Flow Rate FiO2 11/13/22 08:00 36.4 11/13/22 06:59 122 16 94 30 11/13/22 06:37 95 102/78 11/13/22 06:00 95 16 102/78 (86) 93 Mechanical Ventilator 30.00 11/13/22 05:11 30 11/13/22 05:00 108 16 94 Mechanical Ventilator 30.00 11/13/22 04:00 120 16 117/104 (108) 94 Mechanical Ventilator 30.00 11/13/22 03:21 95 Mechanical Ventilator 30 11/13/22 03:19 37.0 16 Mechanical Ventilator 30.00 11/13/22 03:00 120 16 95 Mechanical Ventilator 30.00 11/13/22 02:02 112 16 94 30 11/13/22 02:00 123 16 79/59 (66) 94 Mechanical Ventilator 30.00 2/8/23 01:37 30 11/13/22 01:00 121 16 95 Mechanical Ventilator 30.00 11/13/22 01:00 121 11/13/22 00:01 92 Mechanical Ventilator 30 11/13/22 00:00 142 16 119/83 (95) 92 Mechanical Ventilator 30.00 11/12/22 23:06 36.7 16 Mechanical Ventilator 30.00 11/12/22 23:00 126 16 91 Mechanical Ventilator 30.00 11/12/22 22:22 113 16 92 30 11/12/22 22:00 126 16 125/91 (102) 94 Mechanical Ventilator 30.00 11/12/22 21:00 122 16 115/79 (91) 94 Mechanical Ventilator 30.00 11/12/22 20:39 30 11/12/22 20:00 36.3 11/12/22 20:00 131 16 115/77 (90) 94 Mechanical Ventilator 30.00 11/12/22 19:22 94 Mechanical Ventilator 30 11/12/22 19:00 36.6 16 Mechanical Ventilator 30.00 11/12/22 19:00 130 136/68 11/12/22 19:00 100 11/12/22 19:00 147 16 126/101 (111) 94 Mechanical Ventilator 30.00 11/12/22 18:56 130 15 94 30 11/12/22 18:00 94 Mechanical Ventilator 30 11/12/22 18:00 120 15 99/78 (85) 93 Mechanical Ventilator 30.00 11/12/22 17:15 30 11/12/22 17:00 126 16 126/100 (109) 94 Mechanical Ventilator 30.00 11/12/22 16:00 117 16 122/85 (97) 92 Mechanical Ventilator 30.00 11/12/22 16:00 96 Mechanical Ventilator 30 11/12/22 15:49 36.2 11/12/22 15:00 146 16 92 Mechanical Ventilator 30.00 11/12/22 14:54 140 123/80 11/12/22 14:21 124 16 92 30 11/12/22 14:00 102 112/65 11/12/22 14:00 102 16 116/77 (90) 91 Mechanical Ventilator 30.00 11/12/22 13:15 30 11/12/22 13:14 172 126/95 11/12/22 13:00 151 16 126/95 (105) 91 Mechanical Ventilator 30.00 11/12/22 12:45 176 11/12/22 12:00 96 Mechanical Ventilator 30 11/12/22 12:00 36.5 11/12/22 12:00 174 17 88/76 (80) 90 Mechanical Ventilator 30.00 11/12/22 11:00 165 17 102/68 (79) 92 Mechanical Ventilator 30.00 11/12/22 10:55 123 89/42 11/12/22 10:50 176 11/12/22 10:04 97 16 93 30 11/12/22 10:00 108 15 93 Mechanical Ventilator 30.00 11/12/22 09:55 122 113/56 11/12/22 09:15 30 11/12/22 09:00 117 16 93 Mechanical Ventilator 30.00 I & O0 11/13/22 07:00 Intake Total 6962 ml Output Total 1525 ml Balance 5437 ml Height & Weight Height: '" Weight: lbs. oz. kg; 26.63 BMI Method: General Appearance: No Apparent Distress, Other (sedated on vent) Neck: Normal Inspection, Supple Respiratory: Lungs Clear, Crackles, Rhonci, Other (on vent) Cardiovascular: Irregularly Irregular, Tachycardia, Other (HR 110 to 130, on amiodarone 0.5 ) Capillary Refill: Less Than 3 Seconds Extremity: No Pedal Edema, Pedal Edema (2+ leg edema and both arms), Swelling (trace bilateral lower extremity edema) Neurologic/Psychiatric: Other (sedated, appears comfortable) Skin: Normal Color, Warm/Dry Results Lab Laboratory Tests 11/12/22 03:30 11/13/22 03:10 Assessment/Plan Assessment/Plan Cerebral anoixia after cardiac arrest, will await family decision on GOC Chronic vent failure, will continue on vent hypotension a fib, rate is still high about 120, on IV amdiodaonr due to edema will lower LR to 100 mL/h Critical Care: Ventilator Management Time spent with patient (mins): 25 VALE CEJA MD Nov 13, 2022 08:41
--- NOTE | 2022-11-13 09:15 | Progress Note - Hospitalist ---
Subjective HPI/CC On Admission Date Seen by Provider: Nov 13, 2022 Pelon Mccarty is a 77 year old male with PMH HTN, T2DM, BPH, dementia, intracranial hemorrhage, sacral ulcer, who presented with altered mental status. His says that he was not acting like himself. He was reportedly "gurgling". She says he was coughing up phlegm. She says he usually talks and is able to recognize his family. She says he walks with help. He has a "lift chair" at home. He has a sacral wound for which he is supposed to start seeing wound care in [place]. She says they bathe him every day. She appeared to be a bit defensive saying that "these things could happen in the hospital or assisted too". I let her know that it sounds like she has been doing a great job of taking care of him. She says they have been together for 57 years. I educated her on the natural progression of dementia. We discussed poor prognostic factors including debility, sacral ulcers, and aspiration. We discussed that based on his prior status, he will likely not be able to return home and she understood but remains hopeful he will recover. Subjective/Events-last exam Pt is on vent still. Back on pressors. BPs in 130-140s so discussed with RN and she plans to titrate. No family at bedside. Focused Exam Lactate Level Objective Exam Vital Signs Vital Signs Date Time Temp Pulse Resp B/P (MAP) Pulse Ox O2 Delivery O2 Flow Rate FiO2 11/13/22 13:00 98 12 95 Mechanical Ventilator 30.00 11/13/22 12:00 36.5 11/13/22 12:00 35 Capillary Refill : Less Than 3 Seconds General Appearance: Other (sedated on vent) Respiratory: Crackles (left base), Other (on vent) Cardiovascular: No Murmur, Irregularly Irregular Gastrointestinal: Normal Bowel Sounds, Soft Genital/Rectal: Other (catheter) Neurologic/Psychiatric: Other (sedated, appears comfortable, did not respond to voice) Results/Procedures Lab Laboratory Tests 11/13/22 03:10 Patient resulted labs reviewed. Imaging: Reviewed Imaging Report Assessment/Plan Assessment and Plan Assess & Plan/Chief Complaint Septic shock RML pneumonia Likely aspiration pneumonia Acute respiratory failure with hypoxia Elevated d-dimer Lactic acidosis KARSTEN Elevated troponin Wean pressors Continue Unasyn Likely type II NSTEMI due to sepsis- cardiology consulted, appreciate recs Elevated d-dimer, unable to perform CT due to renal failure If eICU does not plan to wean today will consider CTA chest Continue therapeutic Lovenox Lower extremity ultrasound negative V/Q scan ordered but likely won't be able to be done on the vent Cardiology consulted TeleICU consulted Dementia Sacral ulcer Poor prognosis Consult wound care Consult palliative care Dr Simon discussed poor prognosis with Granddaughter reported patient's is very resistant to hospice and has been approached regarding this multiple times- will hold off for now History of intracranial hemorrhage Clinically significant Discontinue anticoagulation if/when able Critical Care Ventilator Management DHRUV ROWAN MD Nov 13, 2022 09:15
--- NOTE | 2022-11-13 09:39 | Progress Note - Cardiology ---
Cardiology SOAP Progress Note Subjective: Intubated and on mech vent. Unable to provide any history by bedside. She reports increasing productive cough and shortness of breath with falling oxygen sat for a few days prior to admission. Pt has not been reporting cp or palp Wire reports a chronic h/o "irreg heart beat" that is chronically present and for which he had been on anticoag that was stopped about a year ago at the time of a stroke and simultaneous fall for which he was seen in [place] and anticoag was stopped. According to the , the bleeding in the head was felt to be spontaneous and leading to fall rather than the result of it Objective: I&O/Vital Signs 11/12/22 11/12/22 11/12/22 11/12/22 22:00 22:22 23:00 23:06 Temp 36.7 Pulse 126 113 126 Resp 16 16 16 16 B/P (MAP) 125/91 (102) Pulse Ox 94 92 91 O2 Delivery Mechanical Ventilator Mechanical Ventilator Mechanical Ventilator O2 Flow Rate 30.00 30.00 30.00 FiO2 30 11/13/22 11/13/22 11/13/22 11/13/22 00:00 00:01 01:00 01:00 Pulse 142 121 121 Resp 16 16 B/P (MAP) 119/83 (95) Pulse Ox 92 92 95 O2 Delivery Mechanical Ventilator Mechanical Ventilator Mechanical Ventilator O2 Flow Rate 30.00 30.00 FiO2 30 11/13/22 11/13/22 11/13/22 11/13/22 01:37 02:00 02:02 03:00 Pulse 123 112 120 Resp 16 16 16 B/P (MAP) 79/59 (66) Pulse Ox 94 94 95 O2 Delivery Mechanical Ventilator Mechanical Ventilator O2 Flow Rate 30.00 30.00 FiO2 30 30 11/13/22 11/13/22 11/13/22 11/13/22 03:19 03:21 04:00 05:00 Temp 37.0 Pulse 120 108 Resp 16 16 16 B/P (MAP) 117/104 (108) Pulse Ox 95 94 94 O2 Delivery Mechanical Ventilator Mechanical Ventilator Mechanical Ventilator Mechanical Ventilator O2 Flow Rate 30.00 30.00 30.00 FiO2 30 11/13/22 11/13/22 11/13/22 11/13/22 05:11 06:00 06:37 06:59 Pulse 95 95 122 Resp 16 16 B/P (MAP) 102/78 (86) 102/78 Pulse Ox 93 94 O2 Delivery Mechanical Ventilator O2 Flow Rate 30.00 FiO2 30 30 11/13/22 11/13/22 11/13/22 11/13/22 07:00 07:22 08:00 08:00 Temp 36.4 Pulse 110 121 131 Resp 15 15 B/P (MAP) 123/83 (96) Pulse Ox 93 94 O2 Delivery Mechanical Ventilator Mechanical Ventilator O2 Flow Rate 30.00 30.00 11/13/22 11/13/22 11/13/22 11/13/22 09:00 09:00 09:05 09:15 Pulse 123 123 138 123 Resp 16 B/P (MAP) 96/44 81/54 (63) 82/50 118/65 Pulse Ox 88 O2 Delivery Mechanical Ventilator O2 Flow Rate 30.00 11/13/22 00:00 Intake Total 3303 ml Output Total 825 ml Balance 2478 ml Constitutional: other (intubated and on mech vent, unresponsive) Respiratory: No accessory muscle use; chest expansion is symmetric, chest is bilaterally symmetric, other (fair air entry, scattered rhonchi and coarse cractles) Cardiovascular: irregularly irregular, S1 and S2, systolic murmur (soft JOHN PAUL at card base) Gastrointestional: No tender; soft; No guarding, No rebound; audible bowel sounds Extremities: No clubbing, No cyanosis, No significant edema Neurologic/Psychiatric: other (on mech vent, unresponsive) Skin: warm/dry, ulcerations (sacral decubitus) Results/Procedures: Labs Laboratory Tests 11/12/22 11:49: Glucometer 156H 11/12/22 18:07: Glucometer 147H 11/12/22 23:04: Glucometer 165H 11/13/22 03:10: White Blood Count 11.9H, Red Blood Count 3.59L, Hemoglobin 10.0L, Hematocrit 31L , Mean Corpuscular Volume 86, Mean Corpuscular Hemoglobin 28, Mean Corpuscular Hemoglobin Concent 32, Red Cell Distribution Width 15.9H, Platelet Count 191, Mean Platelet Volume 9.5, Immature Granulocyte % (Auto) 1, Neutrophils (%) (Auto) 87H, Lymphocytes (%) (Auto) 7L, Monocytes (%) (Auto) 4, Eosinophils (%) (Auto) 1, Basophils (%) (Auto) 0, Neutrophils # (Auto) 10.4H, Lymphocytes # (Aut o) 0.8L, Monocytes # (Auto) 0.5, Eosinophils # (Auto) 0.1, Basophils # (Auto) 0.0, Immature Granulocyte # (Auto) 0.1, Blood Gas Puncture Site R RAD, Blood Gas Patient Temperature 37, Arterial Blood pH 7.40, Arterial Blood Partial Pressure CO2 38, Arterial Blood Partial Pressure O2 87, Arterial Blood HCO3 23, Arterial Blood Total CO2 24.5, Arterial Blood Oxygen Saturation 98, Arterial Blood Base Excess -0.8, Tanmay Test YES-POS, Blood Gas Ventilator Setting YES, Blood Gas Inspired Oxygen 30%, Sodium Level 143, Potassium Level 3.7, Chloride Level 113H, Carbon Dioxide Level 20L, Anion Gap 10, Blood Urea Nitrogen 25H, Creatinine 1.21, Estimat Glomerular Filtration Rate 62, BUN/Creatinine Ratio 21, Glucose Level 168H, Calcium Level 8.3L, Corrected Calcium 9.7, Phosphorus Level 2.5, Magnesium Level 2.1, Total Bilirubin 0.6, Aspartate Amino Transf (AST/SGOT) 13, Alanine Aminotransferase (ALT/SGPT) 15, Alkaline Phosphatase 89, Total Protein 5.1L, Albumin 2.3L Microbiology 11/10/22 MRSA Screen - Final, Complete MRSA not isolated 11/10/22 Gram Stain - Final, Resulted 11/10/22 Wound Culture - Preliminary, Resulted Mixed Bacterial Guera With Staphylococcus aureus YEAST 11/10/22 Urine Culture - Final, Complete NO GROWTH 11/10/22 Blood Culture - Preliminary, Resulted No growth Laboratory Tests 11/12/22 03:30 11/13/22 03:10 A/P: Assessment: Septic shock (due to pneumonia and decubitus ulcer) - transient need for pressor support RML pneumonia - managed by the Hospitalist katia AF with RVR - reported to be chronic and permanent - stated to be intolerant to full anticoag (given h/o ICH in 2021 when on anticoag) - Dig and dilt, as needed, for rate control - D/c amio, given lung issues and chronic perm a fib for which cannot adequately anticoagulate (given h/o ICH when on anticoag in 2021) Bacteremia: Cxs showing GPC in clusters; wound cx demonstrated Staph aereus - no murmur noted on exam and no significant regurgitation seen on TTE - cont to montior, ? need for FELIZ at some point in future, but likely nidus for infection is sacral decubitus ulcers - Hosp svce managing Elevated troponin- likely Type II NSTEMI- EF 50%, low normal without regional WMA. Goals of care: Pt now transitioned to DNR - poor prognosis, agree with palliative care Plan: * Complex management due to multiple CV comorbidities * I reviewed his records and discussed his case with Dr Harper * Full anticoag appears contraindicated (see discussion above). DVT prophylaxis dose of enoxaparin appears reasonable, given no IC bleed reported on CT head of 11/10/22 * Our other recommendations are listed above * Prognosis guarded/poor * Monitor labs * I had a long and detailed discussion with patient's and answered her questions in detail Clinical Quality Measures Type of Care: Type of Care: Pallative Care GAYLA CASIANO MD FACP [facility] Nov 13, 2022 09:39
[2022-11-13] MEDS ORDERED: DIGOXIN 0.25 MG/ML (LANOXIN) 2 ML AMP IV NR (10:00)
[2022-11-13] MEDS: VASOPRESSIN INJECTION 20 UNIT in NS (IVPB) 100 ML IV SCH ×2 (10:20→22:25)
[2022-11-13 10:27] VITALS: BP 119/64
[2022-11-13] MEDS: dilTIAZem DRIP PRE-MIX 125 ML IV SCH (10:35)
[2022-11-13] MEDS: fentaNYL DRIP PRE-MIX 250 ML IV SCH (10:36)
[2022-11-13] MEDS ORDERED: NS 100 ML (IVPB) BAG IV ONE (14:30)
[2022-11-13] MEDS ORDERED: IOHEXOL 350 MG/ML 100 ML (OMNIPAQUE 350) VIAL IV ONE (14:30)
[2022-11-13] MEDS ORDERED: HOLD METFORMIN - RECEIVED CONTRAST 20 ML VIAL IV SCH (14:30)
--- NOTE | 2022-11-13 14:45 | CONSULTATION REPORT ---
DATE OF SERVICE: 11/10/2022 REASON FOR CONSULTATION: Elevated BNP, elevated troponin. HISTORY OF PRESENT ILLNESS: The patient is a 77-year-old gentleman with a history of intracerebral hemorrhage after a fall to the right occipital lobe while on Eliquis for AFib, atrial fibrillation, dementia with frequent falls, sacral decubitus ulcers, who presented for evaluation to the emergency room. Apparently, the patient was found unresponsive for at least 2 hours. EMS was called to evaluate the patient and found him to have a heart rate of 180 to 190s with a BP of 80/40. He was shocked, DC cardioversion x1 en route to transition him into sinus bradycardia. Per the family's report and review of records, the patient was noted to be gurgling all day. At this time, the patient is intubated, so unable to interview him. In the emergency room, he was found to have a right lung opacity with some mild vascular congestion and was started on vancomycin and cefepime. EKG was significant for sinus jann at a heart rate of 47 beats per minute, incomplete right bundle branch block and minimal ST depressions in the anterolateral leads. He was intubated for hypoxia and subsequently transferred to the ICU. REVIEW OF SYSTEMS: Unable to interview the patient. MEDICATIONS: The patient currently on vancomycin 750 mg IV daily, Lovenox 80 mg subQ daily, cefepime 1 gram IV b.i.d., Protonix 40 mg IV daily, sliding scale insulin with aspart and Precedex drip. He is no longer on pressor support. ALLERGIES: No known drug allergies are noted. PAST MEDICAL HISTORY: History of ICH after a traumatic fall in the right occipital lobe. Dementia with frequent falls. Atrial fibrillation, not on anticoagulation secondary to his recent traumatic fall. Sacral decubitus ulcers. PHYSICAL EXAMINATION: VITAL SIGNS: His vitals were T-max 35.9 to 37.1, heart rates 40s to 60s, respiratory rate 14-16, blood pressure is 90-130 over 60s-90s, satting greater than 97% on ventilator, assist control, volume control settings with an FiO2 of 0.6. GENERAL: He is intubated and sedated. NECK: Soft and supple. No cervical lymphadenopathy or thyromegaly. LUNGS: Coarse, but relatively clear anterolaterally. No chuyita wheezing, rales or rhonchi are appreciated. CARDIOVASCULAR: Regular rate and rhythm, normal S1, S2. No murmurs, gallops or rubs are appreciated. ABDOMEN: Soft, nontender, nondistended, hypoactive bowel sounds are appreciated. EXTREMITIES: No cyanosis, clubbing or edema. He is warm to the touch in the upper extremities and cool to the touch in the bilateral lower extremities. SKIN: No rashes or ecchymoses are noted. He does have sacral decubitus ulcers. LABORATORY DATA: Labs and imaging are significant for chest x-ray with right lung opacity and mild vascular congestion. EKG, sinus jann at a heart rate of 47 beats per minute, incomplete right bundle branch block. Minimal ST depressions in the anterolateral leads. Flu A and B are negative. COVID is negative. White blood cell count of 18.4, hematocrit of 35, platelets of 270. INR is 1.4. D-dimer elevated at 3.8. BNP is 1626. ABG demonstrates a pH of 7.4, pCO2 of 36, pO2 of 173. Sodium is 149, potassium 4.0, chloride 115, bicarbonate 20, BUN 51, creatinine is 2.2, anion gap of 14. Lactate has gone from 3.9, down to 3.1. Urine tox screen is negative. Troponin initial read was negative, second read is 0.037, just over the positive cas of 0.03. LFTs are within normal limits. ASSESSMENT AND PLAN: The patient is a 77-year-old gentleman with a history of dementia with frequent falls, ICH in the setting of a traumatic fall, sacral decubitus ulcers, atrial fibrillation, not on anticoagulation secondary to his frequent falls, who presents for evaluation after being found unresponsive and gurgling all day. First issue is atrial fibrillation. There is mention at least of heart rates in the 180s to 190s for which he received DC cardioversion x1. For now, his heart rates are in the 40s, so we will hold on any evaristo agents at this time. We will touch base with our hospitalist colleagues to touch base with the neurosurgical colleagues who treated him prior to ensure that they would be okay with him receiving anticoagulation versus antiplatelet agents. I do think he should at least be on aspirin 81 as a compromise going home. Continue to monitor. 1. Elevated BNP, unclear etiology. We will obtain an echocardiogram to assess for any decrement in cardiac function. 2. Positive troponins, unclear etiology. This could be a type 2 NSTEMI versus a true type 1 NSTEMI. Again, we will obtain echocardiogram to assess for any regional wall motion abnormalities. If indicated and the patient does have signs of neurologic wellbeing, we will consider moving forward with cardiac catheterization, but only after clearing whether or not he would be a candidate for antiplatelet treatment. Other etiologies to consider would be pulmonary embolus. The CTA was foregone given his creatinine of 2.2. We will pursue a V/Q scan to help elucidate some issues from the standpoint, although I think the patient needs to be awake and participate for us to be able to obtain a V/Q scan. In the interim, we have decided to move forward with at least Lovenox for anticoagulation and the likelihood that this represents a PE presentation. 3. Acute kidney injury. Last creatinine back in 02/2022 was 1.3. UA is negative, so suspect this may be secondary to some element of poor renal perfusion. We will continue to trend his troponins and if his urine output does not continuous pickling line pickler, consider renal consultation. 4. Pneumonia. Continue with vancomycin and cefepime. 5. History of sacral decubitus ulcers, continue with vancomycin and cefepime. Plan per hospitalist. DISPOSITION: We will continue to follow along. Recommend spontaneous awakening trial to get a sense of his neurological status. We will need to touch base with neurosurgical colleagues to ensure that initiation of either anticoagulation and/or antiplatelet agents would be reasonable in the long-term given his frequent falls and recent ICH. Thank you very much for allowing me to participate in his care. Job ID: [id number] DocumentID: [id number] Dictated Date: 11/10/2022 09:25:08 Welder Journeyman Date: 11/10/2022 10:52:00 Dictated By: JONNA ZAPATA MD
[2022-11-13 14:56] VITALS: BP 136/55
--- NOTE | 2022-11-13 16:09 | Diagnostic Imaging Report ---
EXAMINATION: CT angiography of the chest. TECHNIQUE: Contrast-enhanced thin section helical images were obtained through the chest with intravenous contrast timed for the optimal opacification of the arterial structures per CTA protocol. Post-processing, reconstructions and interpretation of angiographic images of the vessels was performed. 3D MIP reconstructions were performed and reviewed. All CT scans use one or more of the following dose optimizing techniques: Automated exposure control, MA and/or KvP adjustment based on a patient size and exam type, or iterative reconstruction. HISTORY: Hypoxia. COMPARISON: None available. FINDINGS: Vascular: There are no filling defects within the pulmonary arteries. The thoracic aorta is normal in caliber. Thyroid: The thyroid is normal. Mediastinum: Heart size is normal without significant pericardial effusion. There are multiple enlarged mediastinal lymph nodes which are nonspecific and may be reactive. Lungs and airways: There are bilateral pleural effusions. No pneumothorax. There is atelectasis or consolidation within the dependent lungs bilaterally. Mild ground-glass attenuation within the right lung. There are a couple of pulmonary nodules measuring up to 0.8 x 0.5 cm in the right upper lobe (series 3, image 74). There are air bronchograms within the lung bases. An endotracheal tube is present above the carrington. Upper abdomen: There is mild gallbladder wall thickening. An enteric catheter is present within the stomach. Musculoskeletal: Degenerative changes of the spine without suspicious osseous lesion or compression fracture. IMPRESSION: 1. No findings of pulmonary embolus. 2. Bilateral pleural effusions with atelectasis or consolidation within the dependent lungs. 3. Mildly enlarged mediastinal lymph nodes are nonspecific and may be reactive. Dictated by: Dictated on workstation # [id number]
--- NOTE | 2022-11-13 17:01 | Tele-ICU Progress Note ---
Subjective Date Seen by a Provider: Nov 13, 2022 Time Seen by a Provider: 16:59 Subjective/Events-last exam Pt now off pressors for several hours, BP is acceptable, due to increased edema, will give 40 mg iVP Yolie Ceja MD Sepsis Event Evaluation Height, Weight, BMI Height: '" Weight: lbs. oz. kg; 26.63 BMI Method: Exam Exam Patient acknowledged, consented, and participated in this virtual visit which was conducted using real time audio/video Vital Signs Date Time Temp Pulse Resp B/P (MAP) Pulse Ox O2 Delivery O2 Flow Rate FiO2 11/13/22 16:56 36.1 11/13/22 15:00 75 19 94 Mechanical Ventilator 30.00 11/13/22 14:56 93 17 95 30 11/13/22 14:00 93 16 104/63 (77) 94 Mechanical Ventilator 30.00 11/13/22 13:00 98 12 95 Mechanical Ventilator 30.00 11/13/22 12:54 100 11/13/22 12:00 117 16 104/72 (83) 96 Mechanical Ventilator 30.00 11/13/22 12:00 36.5 11/13/22 12:00 96 Mechanical Ventilator 35 11/13/22 11:05 111 147/67 11/13/22 11:00 109 13 112/90 (97) 92 Mechanical Ventilator 30.00 11/13/22 10:40 116 113/60 11/13/22 10:36 89 11/13/22 10:35 112 113/68 11/13/22 10:27 124 18 93 30 11/13/22 10:00 101 12 100/80 (87) 92 Mechanical Ventilator 30.00 11/13/22 09:15 123 118/65 11/13/22 09:05 138 82/50 11/13/22 09:00 123 16 81/54 (63) 88 Mechanical Ventilator 30.00 11/13/22 09:00 123 96/44 11/13/22 08:00 91 Mechanical Ventilator 30 11/13/22 08:00 36.4 11/13/22 08:00 131 15 123/83 (96) 94 Mechanical Ventilator 30.00 11/13/22 07:22 121 11/13/22 07:00 110 15 93 Mechanical Ventilator 30.00 11/13/22 06:59 122 16 94 30 11/13/22 06:37 95 102/78 11/13/22 06:00 95 16 102/78 (86) 93 Mechanical Ventilator 30.00 11/13/22 05:11 30 11/13/22 05:00 108 16 94 Mechanical Ventilator 30.00 11/13/22 04:00 120 16 117/104 (108) 94 Mechanical Ventilator 30.00 11/13/22 03:21 95 Mechanical Ventilator 30 11/13/22 03:19 37.0 16 Mechanical Ventilator 30.00 11/13/22 03:00 120 16 95 Mechanical Ventilator 30.00 11/13/22 02:02 112 16 94 30 11/13/22 02:00 123 16 79/59 (66) 94 Mechanical Ventilator 30.00 11/13/22 01:37 30 11/13/22 01:00 121 16 95 Mechanical Ventilator 30.00 11/13/22 01:00 121 11/13/22 00:01 92 Mechanical Ventilator 30 11/13/22 00:00 142 16 119/83 (95) 92 Mechanical Ventilator 30.00 11/12/22 23:06 36.7 16 Mechanical Ventilator 30.00 11/12/22 23:00 126 16 91 Mechanical Ventilator 30.00 11/12/22 22:22 113 16 92 30 11/12/22 22:00 126 16 125/91 (102) 94 Mechanical Ventilator 30.00 11/12/22 21:00 122 16 115/79 (91) 94 Mechanical Ventilator 30.00 11/12/22 20:39 30 11/12/22 20:00 36.3 11/12/22 20:00 131 16 115/77 (90) 94 Mechanical Ventilator 30.00 11/12/22 19:22 94 Mechanical Ventilator 30 11/12/22 19:00 36.6 16 Mechanical Ventilator 30.00 11/12/22 19:00 130 136/68 11/12/22 19:00 100 11/12/22 19:00 147 16 126/101 (111) 94 Mechanical Ventilator 30.00 11/12/22 18:56 130 15 94 30 11/12/22 18:00 94 Mechanical Ventilator 30 11/12/22 18:00 120 15 99/78 (85) 93 Mechanical Ventilator 30.00 11/12/22 17:15 30 11/12/22 17:00 126 16 126/100 (109) 94 Mechanical Ventilator 30.00 I & O 11/13/22 07:00 Intake Total 6962 ml Output Total 1525 ml Balance 5437 ml Height & Weight Height: '" Weight: lbs. oz. kg; 26.63 BMI Method: General Appearance: Other (sedated on vent) Neck: Normal Inspection, Supple Respiratory: Crackles (left base), Other (on vent) Cardiovascular: No Murmur, Irregularly Irregular Capillary Refill: Less Than 3 Seconds Extremity: No Pedal Edema, Pedal Edema (2+ leg edema and both arms), Swelling (trace bilateral lower extremity edema) Neurologic/Psychiatric: Other (sedated, appears comfortable, did not respond to voice) Skin: Normal Color, Warm/Dry Results Lab Laboratory Tests 11/12/22 03:30 11/13/22 03:10 Assessment/Plan Assessment/Plan generalized edema Critical Care: Ventilator Management Time spent with patient (mins): 10 VALE CEJA MD Nov 13, 2022 17:01
[2022-11-13] MEDS ORDERED: FUROSEMIDE 40 MG/4 ML INJ (LASIX) IVP NR (17:15)
[2022-11-13] MEDS: TAMSULOSIN 0.4 MG (FLOMAX) CAP PO SCH (17:45)
[2022-11-13 19:07] VITALS: BP 104/63
[2022-11-13] MEDS: MIRTAZAPINE 15 MG (REMERON) TAB PO SCH (20:23)
[2022-11-13 22:17] VITALS: BP 104/63
[2022-11-14] VITALS (7 sets, daily range): BP systolic 102–157; BP diastolic 35–100
[2022-11-14] MEDS: inSUlin ASPART (NovoLOG) 1 UNIT/0.01 ML (CHARGE PER UNIT) SC SCH ×5 (00:15→23:29)
[2022-11-14] MEDS: RT-ALBUTEROL SULF 2.5 MG/3 ML PRE-MIX VIAL INH SCH ×7 (01:25→23:07)
[2022-11-14] MEDS: AMPICILLIN/SULBACTAM 3 GM/NS 100 ML IVPB IV SCH ×6 (02:10→17:35)
[2022-11-14] MEDS: fentaNYL DRIP PRE-MIX 250 ML IV SCH (02:49)
[2022-11-14 03:19] LABS: ABG BASE EXCESS 2.7 MMOL/L (-2.5-2.5); ABG OXYGEN SATURATION 100 % (94-100); ABG PCO2 40 MMHG (35-45); ABG PH 7.44 (7.37-7.43); ABG PO2 103 MMHG (79-93); ABG TCO2 27.8 MMOL/L (21.0-31.0); ALLENS TEST ART LINE; INSPIRED O2 35%; PATIENT TEMP 37.1; VENTILATOR YES
[2022-11-14 03:31] LABS: BASOPHILS % (AUTO) 0 % (0-10); EOSINOPHILS # (AUTO) 0.2 10^3/uL (0.0-0.3); EOSINOPHILS % (AUTO) 2 % (0-10); HEMATOCRIT 31 % (40-54); HEMOGLOBIN 9.7 g/dL (13.3-17.7); LYMPHOCYTES # (AUTO) 0.9 10^3/uL (1.0-4.0); LYMPHOCYTES % (AUTO) 9 % (12-44); MEAN CORPUSCULAR HEMOGLOBIN 27 pg (25-34); MEAN CORPUSCULAR HGB CONC 32 g/dL (32-36); MEAN CORPUSCULAR VOLUME 87 fL (80-99); MONOCYTES # (AUTO) 0.7 10^3/uL (0.0-1.0); MONOCYTES % (AUTO) 7 % (0-12); NEUTROPHILS # (AUTO) 7.9 10^3/uL (1.8-7.8); NEUTROPHILS % (AUTO) 80 % (42-75); PLATELET COUNT 164 10^3/uL (130-400)
[2022-11-14 03:43] LABS: ALBUMIN 2.1 GM/DL (3.2-4.5)
[2022-11-14 03:44] LABS: POTASSIUM 4.4 MMOL/L (3.6-5.0)
[2022-11-14 03:45] LABS: CALCIUM 7.9 MG/DL (8.5-10.1)
[2022-11-14 03:46] LABS: TOTAL PROTEIN 4.8 GM/DL (6.4-8.2)
[2022-11-14] MEDS: KCL 20 MEQ TAB (K-DUR) PO SCH (03:46)
[2022-11-14] MEDS: POTASSIUM CL 10MEQ/50ML IVPB 50 ML IV SCH (03:46)
[2022-11-14 03:48] LABS: BILIRUBIN,TOTAL 0.6 MG/DL (0.1-1.0)
[2022-11-14 03:49] LABS: PHOSPHORUS 2.3 MG/DL (2.3-4.7)
[2022-11-14 03:50] LABS: CREATININE SERUM 1.2 MG/DL (0.60-1.30)
[2022-11-14] MEDS: MAGNESIUM 1 GM/100 ML IVPB 100 ML IV SCH (03:57)
[2022-11-14] MEDS: LACTATED RINGERS 1,000 ML IV SCH ×2 (04:39→15:38)
[2022-11-14] MEDS: PHENYLEPHRINE DRIP 250 ML IV SCH ×2 (06:07→20:17)
[2022-11-14] MEDS: DexMEDEtomidine 1,000 MCG/250 ML IV SCH (06:07)
[2022-11-14] MEDS: VASOPRESSIN INJECTION 20 UNIT in NS (IVPB) 100 ML IV SCH ×2 (08:35→20:17)
[2022-11-14] MEDS: PANTOPRAZOLE 40 MG (PROTONIX) VIAL IV SCH (09:22)
[2022-11-14] MEDS: OLANZapine 5 MG ODT (ZyPREXA ZYDIS) PO SCH ×2 (09:22→20:04)
[2022-11-14] MEDS: MEMANTINE 10 MG (NAMENDA) TABLET PO SCH ×2 (09:22→20:04)
[2022-11-14] MEDS: DIGOXIN 0.25 MG/ML (LANOXIN) 2 ML AMP IV SCH (09:22)
[2022-11-14] MEDS: COLLAGENASE 30 GM (SANTYL) TUBE TP SCH (09:23)
--- NOTE | 2022-11-14 09:39 | Progress Note - Hospitalist ---
Subjective HPI/CC On Admission Date Seen by Provider: Nov 14, 2022 Pelon Mccarty is a 77 year old male with PMH HTN, T2DM, BPH, dementia, intracranial hemorrhage, sacral ulcer, who presented with altered mental status. His says that he was not acting like himself. He was reportedly "gurgling". She says he was coughing up phlegm. She says he usually talks and is able to recognize his family. She says he walks with help. He has a "lift chair" at home. He has a sacral wound for which he is supposed to start seeing wound care in [place]. She says they bathe him every day. She appeared to be a bit defensive saying that "these things could happen in the hospital or correction too". I let her know that it sounds like she has been doing a great job of taking care of him. She says they have been together for 57 years. I educated her on the natural progression of dementia. We discussed poor prognostic factors including debility, sacral ulcers, and aspiration. We discussed that based on his prior status, he will likely not be able to return home and she understood but remains hopeful he will recover. Subjective/Events-last exam Pt remains on vent. off pressors. RN has no concerns. Reports night RN tried to wean sedation and BP became elevated so sedation turned back up. Objective Exam Vital Signs Vital Signs Date Time Temp Pulse Resp B/P (MAP) Pulse Ox O2 Delivery O2 Flow Rate FiO2 11/14/22 12:36 75 11/14/22 12:04 11 96 30 11/14/22 12:00 Mechanical Ventilator 30.00 11/13/22 23:59 37.0 Capillary Refill : Less Than 3 Seconds General Appearance: Other (sedated on vent) Respiratory: Decreased Breath Sounds (in bases, no crackles), Other (on vent) Cardiovascular: Irregularly Irregular Neurologic/Psychiatric: Other (sedated, sleeping soundly) Results/Procedures Lab Laboratory Tests 11/14/22 03:24 Patient resulted labs reviewed. Imaging: Reviewed Imaging Report Assessment/Plan Assessment and Plan Assess & Plan/Chief Complaint Septic shock RML pneumonia Likely aspiration pneumonia Acute respiratory failure with hypoxia Elevated d-dimer Lactic acidosis KARSTEN Elevated troponin a-fib with RVR Off pressors Continue Unasyn Likely type II NSTEMI due to sepsis- cardiology consulted, appreciate recs Elevated d-dimer, CTA chest negative along with negative doppler of BLE Cardiology consulted TeleICU consulted on cardizem gtt Only on ppx Lovenox now due to history of ICH Dementia Sacral ulcer Poor prognosis Consult wound care Consult palliative care Dr Simon discussed poor prognosis with I returned to room to discuss with today, we discussed the plans for weaning but if unable then we would have to consider LTACH and possibly trach, she shook her head and said she didn't think they would do that. I informed her no decision needed to be made today but to be thinking about it History of intracranial hemorrhage Clinically significant Critical Care Ventilator Management DHRUV ROWAN MD Nov 14, 2022 09:39
--- NOTE | 2022-11-14 10:05 | Progress Note - Cardiology ---
Cardiology SOAP Progress Note Subjective: Intubated and sedated Objective: I&O/Vital Signs 11/17/22 11/17/22 11/17/22 11/17/22 21:00 22:00 22:30 23:00 Pulse 89 84 92 Resp 19 22 20 B/P (MAP) 170/84 (109) 142/99 (112) 176/78 (112) Pulse Ox 92 92 93 92 O2 Delivery Room Air Room Air Room Air Room Air O2 Flow Rate 0.00 11/17/22 11/18/22 11/18/22 11/18/22 23:59 00:00 01:00 01:00 Pulse 87 92 95 Resp 18 11 B/P (MAP) 161/76 (112) 149/112 (114) Pulse Ox 91 90 89 O2 Delivery Room Air Room Air Room Air 11/18/22 11/18/22 11/18/22 11/18/22 02:00 02:46 02:47 02:47 Pulse 90 78 Resp 19 16 B/P (MAP) 165/79 (115) Pulse Ox 90 89 93 92 O2 Delivery Room Air Room Air Nasal Cannula Nasal Cannula O2 Flow Rate 0.00 1.00 1.00 11/18/22 11/18/22 11/18/22 11/18/22 03:00 04:00 04:00 05:00 Pulse 86 90 90 Resp 17 20 19 B/P (MAP) 172/78 (115) 163/86 (123) 173/87 (129) Pulse Ox 93 94 93 94 O2 Delivery Nasal Cannula Nasal Cannula Nasal Cannula Nasal Cannula O2 Flow Rate 1.00 1.00 1.00 1.00 11/18/22 11/18/22 11/18/22 06:00 07:00 07:12 Pulse 80 76 87 Resp 16 19 B/P (MAP) 182/90 (120) 163/86 (111) Pulse Ox 90 93 O2 Delivery Nasal Cannula Nasal Cannula O2 Flow Rate 3.00 3.00 11/18/22 00:00 Intake Total 375 ml Output Total 525 ml Balance -150 ml Constitutional: other (intubated and on mech vent, unresponsive) Respiratory: No accessory muscle use; chest expansion is symmetric, chest is bilaterally symmetric, other (fair air entry, scattered rhonchi and coarse cractles) Cardiovascular: irregularly irregular, S1 and S2, systolic murmur (soft JOHN PAUL at card base) Gastrointestional: No tender; soft; No guarding, No rebound; audible bowel sounds Extremities: No clubbing, No cyanosis, No significant edema Neurologic/Psychiatric: other (on mech vent, unresponsive) Skin: warm/dry, ulcerations (sacral decubitus) Results/Procedures: Labs Laboratory Tests 11/17/22 11:29: Glucometer 140H 11/17/22 17:28: Glucometer 165H 11/18/22 00:24: Glucometer 148H 11/18/22 05:44: White Blood Count 9.5, Red Blood Count 3.38L, Hemoglobin 9.2L, Hematocrit 29L, Mean Corpuscular Volume 86, Mean Corpuscular Hemoglobin 27, Mean Corpuscular Hemoglobin Concent 32, Red Cell Distribution Width 15.8H, Platelet Count 202, Mean Platelet Volume 8.5L, Immature Granulocyte % (Auto) 5, Neutrophils (%) (Auto) 69, Lymphocytes (%) (Auto) 16, Monocytes (%) (Auto) 6, Eosinophils (%) (Auto) 4, Basophils (%) (Auto) 0, Neutrophils # (Auto) 6.5, Lymphocytes # (Auto) 1.5, Monocytes # (Auto) 0.6, Eosinophils # (Auto) 0.4H, Basophils # (Auto) 0.0, Immature Granulocyte # (Auto) 0.4H, Sodium Level 143, Potassium Level 3.9, Chloride Level 108H, Carbon Dioxide Level 27, Anion Gap 8, Blood Urea Nitrogen 17, Creatinine 1.13, Estimat Glomerular Filtration Rate 67, BUN/Creatinine Ratio 15, Glucose Level 122H, Calcium Level 8.5, Corrected Calcium 9.9, Phosphorus Level 2.5, Magnesium Level 2.1, Total Bilirubin 0.6, Aspartate Amino Transf (AST/SGOT) 20, Alanine Aminotransferase (ALT/SGPT) 15, Alkaline Phosphatase 85, Total Protein 5.3L, Albumin 2.3L Microbiology 11/12/22 Blood Culture - Preliminary, Resulted No growth 11/10/22 MRSA Screen - Final, Complete MRSA not isolated 11/10/22 Gram Stain - Final, Complete 11/10/22 Wound Culture - Final, Complete Mixed Bacterial Guera With Staphylococcus aureus YEAST 11/10/22 Urine Culture - Final, Complete NO GROWTH A/P: Assessment: Septic shock (due to pneumonia and decubitus ulcer) - transient need for pressor support RML pneumonia - managed by the Hospitalist svce AF with RVR - reported to be chronic and permanent - stated to be intolerant to full anticoag (given h/o ICH in 2021 when on anticoag) - Dig and dilt, as needed, for rate control - D/c amio, given lung issues and chronic perm a fib for which cannot adequately anticoagulate (given h/o ICH when on anticoag in 2021) Bacteremia: Cxs showing GPC in clusters; wound cx demonstrated Staph aereus - no murmur noted on exam and no significant regurgitation seen on TTE - cont to montior, ? need for FELIZ at some point in future, but likely nidus for infection is sacral decubitus ulcers - Hosp svce managing Elevated troponin- likely Type II NSTEMI- EF 50%, low normal without regional WMA. Goals of care: Pt now transitioned to DNR - poor prognosis, agree with palliative care Plan: * Complex management due to multiple CV comorbidities * Full anticoag appears contraindicated (see discussion above). DVT prophylaxis dose of enoxaparin appears reasonable, given no IC bleed reported on CT head of 11/10/22 * HR well controlled - off cardiem gtt * Our other recommendations are listed above * Prognosis guarded/poor * Monitor labs Clinical Quality Measures Type of Care: Type of Care: Pallative Care SYDNEY PALOMO Nov 14, 2022 10:05
--- NOTE | 2022-11-14 10:18 | Tele-ICU Progress Note ---
Subjective Date Seen by a Provider: Nov 14, 2022 Time Seen by a Provider: 10:17 Subjective/Events-last exam (Tele-ICU Physician , Progress Note ) Service provided via interactive audio and video telecommunications E-CARE system to a patient admitted to ICU bed in [facility]. Patient is seen today due to persistent need of ICU care Available chart/ vitals / labs / Images reviewed Video assessment done using teleICU camera, rest of exam as per RN Discussed with RN Events overnight : Afebrile hemodynamically stable Respiratory - I/O =+ Drips: lr 150 Pressors- ON OFF - saji VENT SETTINGS and ABG reviewed NOT CANDIDATE for SBTreviewed possible contraindications including Car diovascular Stability /Sedation Score / FI02/PEEP / ABG / CXR/ secretions Sedation, discussed with RN, RASS -2 on fent 75 precedx 0.5 moved spontaneously Consultants: Hospital course: (11/10) 77/M- Unresponsive home 2 hrs, EMS shock enroute, Intubated, Sbrady. Non verbal baseline dementia/cva. (11/11) afib rvr --- dnr--levo and precedex, remains vented 11/12-AC 16 450 35% + 5 11/14- increased secretions ETT , 35 % , OFF pressors A/P ACUTE HYPOXIC RESPIRATORY FAILURE DUE TO PNEUMONIA AND SEPSIS. ( CTCHEST 11/13 - no PE ) - INtubated 11/10 - AC 16 450 30% + 5 - TRY SAT and possible SBT today .GRAM POSITIVE SEPTIC SHOCK ( PNA and wounds ) - cont abx - OFF pressors 11/13 STAPG AUREUS PNEUMONIA PRESENT ON ADMISSION ( NEG covif flu) - cont abx KARSTEN -resolved - STOP IVF AFIB WITH RVR -amio gtt 11/11 -->OFF , cardizem gtt of 11/13 , on dig IV - AC with lovenox 80 bid -> 40 on 11/14 ( as per cards note - not on anticoagulation secondary to his frequent falls AMS DUE TO BASE LINE DEMENTIA AND METABOLIC ENCEPHALOPATHY - try SAT today Anemia - stable , probably delutional Lines : R PICC 11/11 , r a line , (Central Line Necessity Reviewed) Adams: + OG: Nutrition: TF to start Analgesia: Anxiety/ delirium VTE Prophylaxis: shorty 80 bid Stress Ulcer Prophylaxis: Plans in collaboration with bedside consultants and IM MDs. Discussed with RN to reach out if any questions or concerns A total of 32 minutes of critical care time was devoted to this patient today, required to treat and/or prevent further deterioration of critical care condition ( as above ) . Sepsis Event Evaluation Height, Weight, BMI Height: '" Weight: lbs. oz. kg; 30.17 BMI Method: Exam Exam Patient acknowledged, consented, and participated in this virtual visit which was conducted using real time audio/video Vital Signs Date Time Temp Pulse Resp B/P (MAP) Pulse Ox O2 Delivery O2 Flow Rate FiO2 11/14/22 09:00 88 16 95 Mechanical Ventilator 30.00 11/14/22 08:00 96 15 95 Mechanical Ventilator 30.00 11/14/22 07:11 97 16 96 30 11/14/22 07:00 72 16 97 Mechanical Ventilator 30.00 11/14/22 07:00 72 11/14/22 06:07 80 129/48 11/14/22 06:00 90 16 97 Mechanical Ventilator 30.00 11/14/22 05:12 35 11/14/22 05:00 81 15 97 Mechanical Ventilator 30.00 11/14/22 04:00 82 15 97 Mechanical Ventilator 30.00 11/14/22 04:00 96 Mechanical Ventilator 35 11/14/22 03:00 90 12 96 Mechanical Ventilator 30.00 11/14/22 02:49 98 121/50 11/14/22 02:00 96 14 95 Mechanical Ventilator 30.00 11/14/22 01:25 85 16 95 30 11/14/22 01:12 35 11/14/22 01:00 95 16 95 Mechanical Ventilator 30.00 11/14/22 01:00 73 11/14/22 00:00 81 15 96 Mechanical Ventilator 30.00 11/14/22 00:00 Mechanical Ventilator 35.00 11/13/22 23:59 96 Mechanical Ventilator 35 11/13/22 23:59 37.0 11/13/22 23:00 87 14 97 Mechanical Ventilator 30.00 11/13/22 22:25 80 146/54 11/13/22 22:17 80 16 97 30 11/13/22 22:00 78 15 97 Mechanical Ventilator 30.00 11/13/22 21:12 35 11/13/22 21:00 90 18 97 Mechanical Ventilator 30.00 11/13/22 20:00 96 Mechanical Ventilator 35 2/8/23 20:00 105 15 97 Mechanical Ventilator 30.00 11/13/22 19:47 36.3 11/13/22 19:07 97 16 97 30 11/13/22 19:00 90 11/13/22 19:00 87 15 97 Mechanical Ventilator 30.00 11/13/22 18:00 96 12 95 Mechanical Ventilator 30.00 11/13/22 17:15 35 11/13/22 17:00 99 15 95 Mechanical Ventilator 30.00 11/13/22 16:56 36.1 11/13/22 16:15 72 19 96 Mechanical Ventilator 30.00 11/13/22 16:00 94 Mechanical Ventilator 35 11/13/22 15:00 75 19 94 Mechanical Ventilator 30.00 11/13/22 14:56 93 17 95 30 11/13/22 14:35 115 136/57 11/13/22 14:00 93 16 104/63 (77) 94 Mechanical Ventilator 30.00 11/13/22 13:15 35 11/13/22 13:00 98 12 95 Mechanical Ventilator 30.00 11/13/22 12:54 100 11/13/22 12:00 117 16 104/72 (83) 96 Mechanical Ventilator 30.00 11/13/22 12:00 36.5 11/13/22 12:00 96 Mechanical Ventilator 35 11/13/22 11:05 111 147/67 11/13/22 11:00 109 13 112/90 (97) 92 Mechanical Ventilator 30.00 11/13/22 10:40 116 113/60 11/13/22 10:36 89 11/13/22 10:35 112 113/68 11/13/22 10:27 124 18 93 30 I & O 11/14/22 07:00 Intake Total 4190 ml Output Total 5000 ml Balance -810 ml Height & Weight Height: '" Weight: lbs. oz. kg; 30.17 BMI Method: General Appearance: Other (sedated on vent) Neck: Normal Inspection, Supple Respiratory: Decreased Breath Sounds (in bases, no crackles), Other (on vent) Cardiovascular: Irregularly Irregular Capillary Refill: Less Than 3 Seconds Extremity: No Pedal Edema, Pedal Edema (2+ leg edema and both arms), Swelling (trace bilateral lower extremity edema) Neurologic/Psychiatric: Other (sedated, sleeping soundly) Skin: Normal Color, Warm/Dry Results Lab Laboratory Tests 11/13/22 03:10 11/14/22 03:24 Assessment/Plan Assessment/Plan 1 CRISSY MOORE MD Nov 14, 2022 10:18
[2022-11-14] MEDS: dilTIAZem DRIP PRE-MIX 125 ML IV SCH ×2 (10:30→22:58)
[2022-11-14] MEDS: HYPOCHLOROUS ACID/NaCl (VASHE) 250 ML IR SCH (15:39)
--- NOTE | 2022-11-14 17:23 | Progress Note - Cardiology ---
Cardiology SOAP Progress Note Subjective: On mech vent Unresponsive Objective: I&O/Vital Signs 11/14/22 11/14/22 11/14/22 11/14/22 06:00 06:07 07:00 07:00 Pulse 90 80 72 72 Resp 16 B/P (MAP) 129/48 139/49 Pulse Ox 97 O2 Delivery Mechanical Ventilator O2 Flow Rate 30.00 11/14/22 11/14/22 11/14/22 11/14/22 07:00 07:11 08:00 08:00 Pulse 72 97 96 Resp 16 16 15 B/P (MAP) Pulse Ox 97 96 95 97 O2 Delivery Mechanical Ventilator Mechanical Ventilator Mechanical Ventilator O2 Flow Rate 30.00 30.00 FiO2 30 30 11/14/22 11/14/22 11/14/22 11/14/22 09:00 10:00 10:10 10:40 Pulse 88 83 87 80 Resp 16 16 17 B/P (MAP) 151/57 Pulse Ox 95 95 95 O2 Delivery Mechanical Ventilator Mechanical Ventilator O2 Flow Rate 30.00 30.00 FiO2 30 11/14/22 11/14/22 11/14/22 11/14/22 11:00 12:00 12:00 12:00 Temp 37.0 Pulse 96 72 Resp 12 11 B/P (MAP) Pulse Ox 95 96 93 O2 Delivery Mechanical Ventilator Mechanical Ventilator Mechanical Ventilator O2 Flow Rate 30.00 30.00 FiO2 30 11/14/22 11/14/22 11/14/22 11/14/22 12:04 12:36 13:00 14:00 Pulse 85 75 77 99 Resp 11 10 10 B/P (MAP) Pulse Ox 96 96 92 O2 Delivery Mechanical Ventilator Mechanical Ventilator O2 Flow Rate 30.00 30.00 FiO2 30 11/14/22 11/14/22 11/14/22 11/14/22 14:19 15:00 16:00 16:00 Pulse 117 94 87 Resp 21 14 16 B/P (MAP) Pulse Ox 95 94 95 95 O2 Delivery Mechanical Ventilator Mechanical Ventilator Mechanical Ventilator O2 Flow Rate 30.00 30.00 FiO2 30 30 11/14/22 16:00 Temp 37.5 11/13/22 23:59 Intake Total 1600 ml Output Total 2775 ml Balance -1175 ml Constitutional: other (intubated and on mech vent, unresponsive) Respiratory: No accessory muscle use; chest expansion is symmetric, chest is bilaterally symmetric, other (fair air entry, scattered rhonchi and coarse cractles) Cardiovascular: irregularly irregular, S1 and S2, systolic murmur (soft JOHN PAUL at card base) Gastrointestional: No tender; soft; No guarding, No rebound; audible bowel sounds Extremities: No clubbing, No cyanosis, No significant edema Neurologic/Psychiatric: other (on mech vent, unresponsive) Skin: warm/dry, ulcerations (sacral decubitus) Results/Procedures: Labs Laboratory Tests 11/13/22 18:02: Glucometer 121H 11/13/22 23:26: Glucometer 140H 11/14/22 03:09: Blood Gas Puncture Site R RUSS, Blood Gas Patient Temperature 37.1, Arterial Blood pH 7.44H, Arterial Blood Partial Pressure CO2 40, Arterial Blood Partial Pressure O2 103H, Arterial Blood HCO3 27, Arterial Blood Total CO2 27.8, Arterial Blood Oxygen Saturation 100, Arterial Blood Base Excess 2.7H, Tanmay Test ART LINE, Blood Gas Ventilator Setting YES, Blood Gas Inspired Oxygen 35% 11/14/22 03:24: White Blood Count 10.0, Red Blood Count 3.55L, Hemoglobin 9.7L, Hematocrit 31L, Mean Corpuscular Volume 87, Mean Corpuscular Hemoglobin 27, Mean Corpuscular Hemoglobin Concent 32, Red Cell Distribution Width 15.9H, Platelet Count 164, Mean Platelet Volume 9.0, Immature Granulocyte % (Auto) 2, Neutrophils (%) (Auto) 80H, Lymphocytes (%) (Auto) 9L, Monocytes (%) (Auto) 7, Eosinophils (%) (Auto) 2, Basophils (%) (Auto) 0, Neutrophils # (Auto) 7.9H, Lymphocytes # (Auto) 0.9L, Monocytes # (Auto) 0.7, Eosinophils # (Auto) 0.2, Basophils # (Auto) 0.0, Immature Granulocyte # (Auto) 0.2H, Sodium Level 143, Potassium Level 4.4, Chloride Level 110H, Carbon Dioxide Level 23, Anion Gap 10, Blood Urea Nitrogen 23H, Creatinine 1.20, Estimat Glomerular Filtration Rate 62, BUN/Creatinine Ratio 19, Glucose Level 138H, Calcium Level 7.9L, Corrected Calcium 9.4, Phosphorus Level 2.3, Magnesium Level 2.0, Total Bilirubin 0.6, Aspartate Amino Transf (AST/SGOT) 17, Alanine Aminotransferase (ALT/SGPT) 12, Alkaline Phosphatase 130, Total Protein 4.8L, Albumin 2.1L 11/14/22 12:47: Glucometer 127H 11/14/22 13:05: Microbiology 11/12/22 Blood Culture - Preliminary, Resulted No growth 11/10/22 MRSA Screen - Final, Complete MRSA not isolated 11/10/22 Gram Stain - Final, Complete 11/10/22 Wound Culture - Final, Complete Mixed Bacterial Guera With Staphylococcus aureus YEAST 11/10/22 Urine Culture - Final, Complete NO GROWTH Laboratory Tests 11/13/22 03:10 11/14/22 03:24 A/P: Assessment: Septic shock (due to pneumonia and decubitus ulcer) - transient need for pressor support RML pneumonia - managed by the Hospitalist svce AF with RVR - reported to be chronic and permanent - stated to be intolerant to full anticoag (given h/o ICH in 2021 when on anticoag) - Dig and dilt, as needed, for rate control - D/c amio, given lung issues and chronic perm a fib for which we cannot adequa tely anticoagulate (given h/o ICH when on anticoag in 2021) Bacteremia: Cxs showing GPC in clusters; wound cx demonstrated Staph aereus - no murmur noted on exam and no significant regurgitation seen on TTE - cont to montior, ? need for FELIZ at some point in future, but likely nidus for infection is sacral decubitus ulcers - Hosp svce managing Elevated troponin- likely Type II NSTEMI- EF 50%, low normal without regional WMA. Goals of care: Pt now transitioned to DNR - poor prognosis, agree with palliative care Plan: * Complex management due to multiple CV comorbidities * Full anticoag appears contraindicated (see discussion above). DVT prophylaxis dose of enoxaparin appears reasonable, given no IC bleed reported on CT head of 11/10/22 * HR well controlled - off cardiem gtt * Our other recommendations are listed above * Prognosis guarded/poor * Monitor labs * I discussed his CV issues with his and answered questions Clinical Quality Measures Type of Care: Type of Care: Pallative Care GAYLA CASIANO MD FACP FAC CCDS Nov 14, 2022 17:23
[2022-11-14] MEDS: ENOXAPARIN 40 MG/0.4 ML (LOVENOX) SYR SC SCH (17:34)
[2022-11-14] MEDS: TAMSULOSIN 0.4 MG (FLOMAX) CAP PO SCH (18:30)
[2022-11-14] MEDS: MIRTAZAPINE 15 MG (REMERON) TAB PO SCH (20:04)
[2022-11-15] MEDS: DexMEDEtomidine 1,000 MCG/250 ML IV SCH (00:19)
[2022-11-15] MEDS: AMPICILLIN/SULBACTAM 3 GM/NS 100 ML IVPB IV SCH ×6 (00:55→16:45)
[2022-11-15 03:07] VITALS: BP 136/47
[2022-11-15] MEDS: RT-ALBUTEROL SULF 2.5 MG/3 ML PRE-MIX VIAL INH SCH ×6 (03:14→22:47)
[2022-11-15 03:37] LABS: ABG BASE EXCESS 4.8 MMOL/L (-2.5-2.5); ABG OXYGEN SATURATION 100 % (94-100); ABG PCO2 39 MMHG (35-45); ABG PH 7.47 (7.37-7.43); ABG PO2 110 MMHG (79-93); ABG TCO2 29.6 MMOL/L (21.0-31.0); ALLENS TEST ART LINE; INSPIRED O2 40%; PATIENT TEMP 36.8; VENTILATOR YES
[2022-11-15 03:49] LABS: BASOPHILS % (AUTO) 0 % (0-10); EOSINOPHILS # (AUTO) 0.1 10^3/uL (0.0-0.3); EOSINOPHILS % (AUTO) 2 % (0-10); HEMATOCRIT 31 % (40-54); HEMOGLOBIN 9.7 g/dL (13.3-17.7); LYMPHOCYTES # (AUTO) 1.2 10^3/uL (1.0-4.0); LYMPHOCYTES % (AUTO) 15 % (12-44); MEAN CORPUSCULAR HEMOGLOBIN 27 pg (25-34); MEAN CORPUSCULAR HGB CONC 32 g/dL (32-36); MEAN CORPUSCULAR VOLUME 86 fL (80-99); MONOCYTES # (AUTO) 0.6 10^3/uL (0.0-1.0); MONOCYTES % (AUTO) 8 % (0-12); NEUTROPHILS # (AUTO) 5.5 10^3/uL (1.8-7.8); NEUTROPHILS % (AUTO) 73 % (42-75); PLATELET COUNT 149 10^3/uL (130-400); WHITE BLOOD COUNT 7.6 10^3/uL (4.3-11.0)
[2022-11-15 03:57] LABS: ALBUMIN 2.1 GM/DL (3.2-4.5); POTASSIUM 3.9 MMOL/L (3.6-5.0)
[2022-11-15 03:58] LABS: CALCIUM 8.4 MG/DL (8.5-10.1)
[2022-11-15 04:00] LABS: TOTAL PROTEIN 4.9 GM/DL (6.4-8.2)
[2022-11-15 04:01] LABS: BILIRUBIN,TOTAL 0.5 MG/DL (0.1-1.0)
[2022-11-15 04:03] LABS: CREATININE SERUM 1.15 MG/DL (0.60-1.30); PHOSPHORUS 2.6 MG/DL (2.3-4.7)
[2022-11-15] MEDS: fentaNYL DRIP PRE-MIX 250 ML IV SCH (04:18)
[2022-11-15] MEDS: POTASSIUM CL 10MEQ/50ML IVPB 50 ML IV SCH ×3 (04:21→06:03)
[2022-11-15] MEDS: KCL 20 MEQ TAB (K-DUR) PO SCH (04:21)
[2022-11-15] MEDS: inSUlin ASPART (NovoLOG) 1 UNIT/0.01 ML (CHARGE PER UNIT) SC SCH ×3 (04:22→18:28)
[2022-11-15] MEDS: MAGNESIUM 1 GM/100 ML IVPB 100 ML IV SCH (04:22)
[2022-11-15] MEDS: HYPOCHLOROUS ACID/NaCl (VASHE) 250 ML IR SCH ×2 (04:36→09:27)
[2022-11-15] MEDS: VASOPRESSIN INJECTION 20 UNIT in NS (IVPB) 100 ML IV SCH ×2 (06:03→18:28)
[2022-11-15 07:08] VITALS: BP 149/47
[2022-11-15] MEDS: PHENYLEPHRINE DRIP 250 ML IV SCH ×2 (08:43→22:31)
[2022-11-15] MEDS: DIGOXIN 0.25 MG/ML (LANOXIN) 2 ML AMP IV SCH (09:20)
[2022-11-15] MEDS: PANTOPRAZOLE 40 MG (PROTONIX) VIAL IV SCH (09:21)
[2022-11-15] MEDS: OLANZapine 5 MG ODT (ZyPREXA ZYDIS) PO SCH ×2 (09:21→21:19)
[2022-11-15] MEDS: MEMANTINE 10 MG (NAMENDA) TABLET PO SCH ×2 (09:21→21:19)
[2022-11-15 10:34] VITALS: BP 155/51
[2022-11-15] MEDS: COLLAGENASE 30 GM (SANTYL) TUBE TP SCH (10:54)
--- NOTE | 2022-11-15 11:03 | Progress Note - Hospitalist ---
Subjective HPI/CC On Admission Date Seen by Provider: Nov 15, 2022 Pelon Mccarty is a 77 year old male with PMH HTN, T2DM, BPH, dementia, intracranial hemorrhage, sacral ulcer, who presented with altered mental status. His says that he was not acting like himself. He was reportedly "gurgling". She says he was coughing up phlegm. She says he usually talks and is able to recognize his family. She says he walks with help. He has a "lift chair" at home . He has a sacral wound for which he is supposed to start seeing wound care in [place]. She says they bathe him every day. She appeared to be a bit defensive saying that "these things could happen in the hospital or fpc too". I let her know that it sounds like she has been doing a great job of taking care of him. She says they have been together for 57 years. I educated her on the natural progression of dementia. We discussed poor prognostic factors including debility, sacral ulcers, and aspiration. We discussed that based on his prior status, he will likely not be able to return home and she understood but remains hopeful he will recover. Subjective/Events-last exam Pt remains on the vent. No family at bedside. Objective Exam Vital Signs Vital Signs Date Time Temp Pulse Resp B/P (MAP) Pulse Ox O2 Delivery O2 Flow Rate FiO2 11/15/22 10:34 85 16 96 30 11/15/22 10:00 142/86 (105) Mechanical Ventilator 30.00 11/15/22 07:44 36.3 Capillary Refill : Less Than 3 Seconds General Appearance: Other (sedated on the vent) Respiratory: Lungs Clear, No Accessory Muscle Use Cardiovascular: Regular Rate, Rhythm, Systolic Murmur Gastrointestinal: Normal Bowel Sounds, Soft Results/Procedures Lab Laboratory Tests 11/15/22 03:44 Patient resulted labs reviewed. Imaging: Reviewed Imaging Report Assessment/Plan Assessment and Plan Assess & Plan/Chief Complaint Septic shock RML pneumonia Likely aspiration pneumonia Acute respiratory failure with hypoxia Elevated d-dimer Lactic acidosis KARSTEN Elevated troponin a-fib with RVR Off pressors still Continue Unasyn Likely type II NSTEMI due to sepsis- cardiology consulted, appreciate recs Elevated d-dimer, CTA chest negative along with negative doppler of BLE Cardiology consulted, appreciate recs TeleICU consulted off cardizem gtt, on digoxin Only on ppx Lovenox now due to history of ICH Dementia Sacral ulcer Poor prognosis Consult wound care Consult palliative care Dr Simon discussed poor prognosis with Will attempt to return to room today to talk with again about goals of care History of intracranial hemorrhage Clinically significant Critical Care Ventilator Management DHRUV ROWAN MD Nov 15, 2022 11:03
--- NOTE | 2022-11-15 11:58 | Tele-ICU Progress Note ---
Subjective Date Seen by a Provider: Nov 15, 2022 Time Seen by a Provider: 11:57 Subjective/Events-last exam (Tele-ICU Physician , Progress Note ) Service provided via interactive audio and video telecommunications E-CARE system to a patient admitted to ICU bed in [facility]. Patient is seen today due to persistent need of ICU care Available chart/ vitals / labs / Images reviewed Video assessment done using teleICU camera, rest of exam as per RN Discussed with RN Events overnight : Afebrile hemodynamically stable Respiratory - I/O =+ Drips: lr 150 Pressors- ON OFF - saji VENT SETTINGS and ABG reviewed NOT CANDIDATE for SBTreviewed possible contraindications including Car diovascular Stability /Sedation Score / FI02/PEEP / ABG / CXR/ secretions Sedation, discussed with RN, RASS -2 on fent 50 precedx 0.8 moved spontaneously Consultants: Hospital course: (11/10) 77/M- Unresponsive home 2 hrs, EMS shock enroute, Intubated, Sbrady. Non verbal baseline dementia/cva. (11/11) afib rvr --- dnr--levo and precedex, remains vented 11/12-AC 16 450 35% + 5 11/14- increased secretions ETT , 35 % , OFF pressors A/P ACUTE HYPOXIC RESPIRATORY FAILURE DUE TO PNEUMONIA AND SEPSIS. ( CTCHEST 11/13 - no PE ) - INtubated 11/10 - AC 16 450 30% + 5 - TRY SAT and possible SBT today ( as per Dr Acosta's discussion with and son - OK to reintubate if failed , trach and LTAC are acceptable ) .GRAM POSITIVE SEPTIC SHOCK ( PNA and wounds ) - cont abx - OFF pressors 11/13 STAPG AUREUS PNEUMONIA PRESENT ON ADMISSION ( NEG covif flu) - cont abx KARSTEN -resolved - STOP IVF AFIB WITH RVR -amio gtt 11/11 -->OFF , cardizem gtt of 11/13 , on dig IV - AC with lovenox 80 bid -> 40 on 11/14 ( as per cards note - not on anticoagulation secondary to his frequent falls AMS DUE TO BASE LINE DEMENTIA AND METABOLIC ENCEPHALOPATHY - try SAT today Anemia - stable , probably delutional Lines : R PICC 11/11 , r a line , (Central Line Necessity Reviewed) Adams: + OG: Nutrition: TF to start Analgesia: Anxiety/ delirium VTE Prophylaxis: shorty 40 bid Stress Ulcer Prophylaxis: na Plans in collaboration with bedside consultants and IM MDs. Discussed with RN to reach out if any questions or concerns A total of 32 minutes of critical care time was devoted to this patient today, required to treat and/or prevent further deterioration of critical care condition ( as above ) . Sepsis Event Evaluation Height, Weight, BMI Height: '" Weight: lbs. oz. kg; 29.63 BMI Method: Exam Exam Patient acknowledged, consented, and participated in this virtual visit which was conducted using real time audio/video Vital Signs Date Time Temp Pulse Resp B/P (MAP) Pulse Ox O2 Delivery O2 Flow Rate FiO2 11/15/22 11:00 88 150/80 (113) 95 Mechanical Ventilator 30.00 11/15/22 10:34 85 16 96 30 11/15/22 10:00 76 142/86 (105) 96 Mechanical Ventilator 30.00 11/15/22 09:12 30 11/15/22 09:00 79 140/93 (102) 96 Mechanical Ventilator 30.00 11/15/22 08:43 84 133/71 11/15/22 08:18 84 133/71 11/15/22 08:00 96 Mechanical Ventilator 40 11/15/22 08:00 84 133/71 (91) 96 Mechanical Ventilator 30.00 11/15/22 07:44 36.3 11/15/22 07:08 76 16 96 30 11/15/22 07:00 72 11/15/22 07:00 81 140/89 (108) 96 Mechanical Ventilator 30.00 11/15/22 06:00 82 136/76 (96) 96 Mechanical Ventilator 30.00 11/15/22 05:00 89 129/74 (92) 97 Mechanical Ventilator 30.00 11/15/22 04:45 30 11/15/22 04:40 30 11/15/22 04:40 Mechanical Ventilator 30.00 11/15/22 04:23 80 139/42 11/15/22 04:18 80 132/44 11/15/22 04:00 96 Mechanical Ventilator 40 11/15/22 04:00 90 15 97 Mechanical Ventilator 40.00 11/15/22 03:46 36.8 11/15/22 03:07 90 16 95 40 2/10/23 03:00 90 15 132/84 (100) 95 Mechanical Ventilator 40.00 11/15/22 02:00 87 16 132/76 (94) 96 Mechanical Ventilator 40.00 11/15/22 01:12 40 11/15/22 01:00 109 11/15/22 01:00 81 16 142/95 (111) 96 Mechanical Ventilator 40.00 11/15/22 00:19 107 133/40 11/15/22 00:00 133 129/43 11/15/22 00:00 94 16 143/64 (90) 92 Mechanical Ventilator 40.00 11/14/22 23:59 92 Mechanical Ventilator 40 11/14/22 23:40 115 112/42 11/14/22 23:20 135 104/32 11/14/22 23:08 Mechanical Ventilator 40.00 11/14/22 23:07 40 11/14/22 23:00 161 114/57 11/14/22 23:00 147 15 123/66 (85) 92 Mechanical Ventilator 30.00 11/14/22 22:58 170 126/70 11/14/22 22:40 163 93/34 11/14/22 22:32 152 101/38 11/14/22 22:30 124 16 91 30 11/14/22 22:30 107/70 (82) 11/14/22 22:00 78 15 93 Mechanical Ventilator 30.00 11/14/22 21:12 30 11/14/22 21:00 86 16 93 Mechanical Ventilator 30.00 11/14/22 20:28 97 Mechanical Ventilator 30 11/14/22 20:17 92 153/59 11/14/22 20:11 37.1 11/14/22 20:00 90 16 92 Mechanical Ventilator 30.00 11/14/22 19:02 87 16 92 30 11/14/22 19:00 82 16 93 Mechanical Ventilator 30.00 11/14/22 19:00 86 11/14/22 18:00 80 15 90 Mechanical Ventilator 30.00 11/14/22 17:15 30 11/14/22 16:00 37.5 11/14/22 16:00 95 Mechanical Ventilator 30 11/14/22 16:00 87 16 95 Mechanical Ventilator 30.00 11/14/22 15:00 94 14 94 Mechanical Ventilator 30.00 11/14/22 14:19 117 21 95 30 11/14/22 14:00 99 10 92 Mechanical Ventilator 30.00 11/14/22 13:15 30 11/14/22 13:00 77 10 96 Mechanical Ventilator 30.00 11/14/22 12:36 75 11/14/22 12:04 85 11 96 30 11/14/22 12:00 37.0 11/14/22 12:00 93 Mechanical Ventilator 30 11/14/22 12:00 72 11 96 Mechanical Ventilator 30.00 I & O 11/15/22 07:00 Intake Total 3100 ml Output Total 3025 ml Balance 75 ml Height & Weight Height: '" Weight: lbs. oz. kg; 29.63 BMI Method: General Appearance: Other (sedated on the vent) Neck: Normal Inspection, Supple Respiratory: Lungs Clear, No Accessory Muscle Use Cardiovascular: Regular Rate, Rhythm, Systolic Murmur Capillary Refill: Less Than 3 Seconds Extremity: No Pedal Edema, Pedal Edema (2+ leg edema and both arms), Swelling (trace bilateral lower extremity edema) Neurologic/Psychiatric: Other (sedated, sleeping soundly) Skin: Normal Color, Warm/Dry Results Lab Laboratory Tests 11/14/22 03:24 11/15/22 03:44 Assessment/Plan Assessment/Plan 1 CRISSY MOORE MD Nov 15, 2022 11:58
[2022-11-15 13:54] LABS: ABG BASE EXCESS 4.2 MMOL/L (-2.5-2.5); ABG OXYGEN SATURATION 98 % (94-100); ABG PCO2 41 MMHG (35-45); ABG PH 7.45 (7.37-7.43); ABG PO2 80 MMHG (79-93); ABG TCO2 29.4 MMOL/L (21.0-31.0)
[2022-11-15 13:56] LABS: INSPIRED O2 30%; PATIENT TEMP 36.4; VENTILATOR YES
--- NOTE | 2022-11-15 16:27 | Progress Note - Cardiology ---
Cardiology SOAP Progress Note Subjective: Intubated, on mech vent, unresponsive Objective: I&O/Vital Signs 11/15/22 11/15/22 11/15/22 11/15/22 04:40 04:40 04:45 05:00 Pulse 89 B/P (MAP) 129/74 (92) Pulse Ox 97 O2 Delivery Mechanical Ventilator Mechanical Ventilator O2 Flow Rate 30.00 30.00 FiO2 30 30 11/15/22 11/15/22 11/15/22 11/15/22 06:00 07:00 07:00 07:08 Pulse 82 81 72 76 Resp 16 B/P (MAP) 136/76 (96) 140/89 (108) Pulse Ox 96 96 96 O2 Delivery Mechanical Ventilator Mechanical Ventilator O2 Flow Rate 30.00 30.00 FiO2 30 11/15/22 11/15/22 11/15/22 11/15/22 07:44 08:00 08:00 08:18 Temp 36.3 Pulse 84 84 B/P (MAP) 133/71 (91) 133/71 Pulse Ox 96 96 O2 Delivery Mechanical Ventilator Mechanical Ventilator O2 Flow Rate 30.00 FiO2 40 11/15/22 11/15/22 11/15/22 11/15/22 08:43 09:00 09:12 10:00 Pulse 84 79 76 B/P (MAP) 133/71 140/93 (102) 142/86 (105) Pulse Ox 96 96 O2 Delivery Mechanical Ventilator Mechanical Ventilator O2 Flow Rate 30.00 30.00 FiO2 30 11/15/22 11/15/22 11/15/22 11/15/22 10:34 11:00 12:00 12:00 Pulse 85 88 86 Resp 16 B/P (MAP) 150/80 (113) 143/81 (100) Pulse Ox 96 95 96 95 O2 Delivery Mechanical Ventilator Mechanical Ventilator Mechanical Ventilator O2 Flow Rate 30.00 30.00 FiO2 30 40 11/15/22 11/15/22 11/15/22 11/15/22 12:00 12:42 13:00 13:06 Temp 36.3 Pulse 77 87 85 Resp 14 B/P (MAP) 150/86 (110) Pulse Ox 95 95 O2 Delivery Mechanical Ventilator O2 Flow Rate 30.00 FiO2 30 11/15/22 11/15/22 11/15/22 11/15/22 13:12 14:00 15:00 15:25 Pulse 84 86 B/P (MAP) 148/95 (120) 180/112 (123) Pulse Ox 93 94 O2 Delivery Mechanical Ventilator Nasal Cannula High Flow N/C O2 Flow Rate 30.00 3.00 3.00 FiO2 30 96 11/15/22 16:00 Pulse 98 B/P (MAP) 200/108 (127) Pulse Ox 97 O2 Delivery Nasal Cannula O2 Flow Rate 3.00 11/15/22 00:00 Intake Total 950 ml Output Total 1725 ml Balance -775 ml Constitutional: other (intubated and on mech vent, unresponsive) Respiratory: No accessory muscle use; chest expansion is symmetric, chest is bilaterally symmetric, other (fair air entry, scattered rhonchi and coarse cractles) Cardiovascular: irregularly irregular, S1 and S2, systolic murmur (soft JOHN PAUL at card base) Gastrointestional: No tender; soft; No guarding, No rebound; audible bowel sounds Extremities: No clubbing, No cyanosis, No significant edema Neurologic/Psychiatric: other (on mech vent, unresponsive) Skin: warm/dry, ulcerations (sacral decubitus) Results/Procedures: Labs Laboratory Tests 11/14/22 17:37: Glucometer 132H 11/14/22 23:28: Glucometer 139H 11/15/22 03:33: Blood Gas Puncture Site ARTLINE, Blood Gas Patient Temperature 36.8, Arterial Blood pH 7.47H, Arterial Blood Partial Pressure CO2 39, Arterial Blood Partial Pressure O2 110H, Arterial Blood HCO3 28H, Arterial Blood Total CO2 29.6, Arterial Blood Oxygen Saturation 100, Arterial Blood Base Excess 4.8H, Tanmay Test ART LINE, Blood Gas Ventilator Setting YES, Blood Gas Inspired Oxygen 40% 11/15/22 03:44: White Blood Count 7.6, Red Blood Count 3.54L, Hemoglobin 9.7L, Hematocrit 31L, M mikayla Corpuscular Volume 86, Mean Corpuscular Hemoglobin 27, Mean Corpuscular Hemoglobin Concent 32, Red Cell Distribution Width 15.8H, Platelet Count 149, Mean Platelet Volume 9.0, Immature Granulocyte % (Auto) 3, Neutrophils (%) (Auto) 73, Lymphocytes (%) (Auto) 15, Monocytes (%) (Auto) 8, Eosinophils (%) (Auto) 2, Basophils (%) (Auto) 0, Neutrophils # (Auto) 5.5, Lymphocytes # (Auto) 1.2, Monocytes # (Auto) 0.6, Eosinophils # (Auto) 0.1, Basophils # (Auto) 0.0, I mmature Granulocyte # (Auto) 0.2H, Sodium Level 142, Potassium Level 3.9, Chlor allen Level 108H, Carbon Dioxide Level 25, Anion Gap 9, Blood Urea Nitrogen 21H, Creatinine 1.15, Estimat Glomerular Filtration Rate 66, BUN/Creatinine Ratio 18, Glucose Level 148H, Calcium Level 8.4L, Corrected Calcium 9.9, Phosphorus Level 2.6, Magnesium Level 2.0, Total Bilirubin 0.5, Aspartate Amino Transf (AST/SGOT) 19, Alanine Aminotransferase (ALT/SGPT) 14, Alkaline Phosphatase 123, Total Protein 4.9L, Albumin 2.1L 11/15/22 12:18: Glucometer 177H 11/15/22 13:40: Blood Gas Puncture Site ART LINE, Blood Gas Patient Temperature 36.4, Arterial Blood pH 7.45H, Arterial Blood Partial Pressure CO2 41, Arterial Blood Partial Pressure O2 80, Arterial Blood HCO3 28H, Arterial Blood Total CO2 29.4, Arterial Blood Oxygen Saturation 98, Arterial Blood Base Excess 4.2H, Tanmay Test N/A, Blood Gas Ventilator Setting YES, Blood Gas Inspired Oxygen 30% Microbiology 11/12/22 Blood Culture - Preliminary, Resulted No growth 11/10/22 MRSA Screen - Final, Complete MRSA not isolated 11/10/22 Gram Stain - Final, Complete 11/10/22 Wound Culture - Final, Complete Mixed Bacterial Guera With Staphylococcus aureus YEAST 11/10/22 Urine Culture - Final, Complete NO GROWTH Laboratory Tests 11/14/22 03:24 11/15/22 03:44 A/P: Assessment: Septic shock (due to pneumonia and decubitus ulcer) - transient need for pressor support RML pneumonia - managed by the Hospitalist katia AF with RVR - reported to be chronic and permanent - stated to be intolerant to full anticoag (given h/o ICH in 2021 when on anticoag) - Dig and dilt, as needed, for rate control - D/c amio, given lung issues and chronic perm a fib for which we cannot adequately anticoagulate (given h/o ICH when on anticoag in 2021) Bacteremia: Cxs showing GPC in clusters; wound cx demonstrated Staph aereus - no murmur noted on exam and no significant regurgitation seen on TTE - cont to montior, ? need for FELIZ at some point in future, but likely nidus for infection is sacral decubitus ulcers - Hosp svce managing Elevated troponin- likely Type II NSTEMI- EF 50%, low normal without regional WMA. Goals of care: Pt now transitioned to DNR - poor prognosis, agree with palliative care Plan: * Complex management due to multiple CV comorbidities * Full anticoag appears contraindicated (see discussion above). DVT prophylaxis dose of enoxaparin appears reasonable, given no IC bleed reported on CT head of 11/10/22 * HR well controlled - off cardiem gtt * Our other recommendations are listed above * Prognosis guarded/poor * Monitor labs * I discussed his CV issues with his and answered questions Clinical Quality Measures Type of Care: Type of Care: Pallative Care GAYLA CASIANO MD FACP [facility] Nov 15, 2022 16:27
[2022-11-15] MEDS ORDERED: METOCLOPRAMIDE INJ 10 MG/2 ML (REGLAN) IVP PRN (16:30)
[2022-11-15] MEDS ORDERED: meTOprolol 5 MG/5 ML (LOPRESSOR) VIAL ONE ×2 (16:39→18:55)
[2022-11-15] MEDS: ENOXAPARIN 40 MG/0.4 ML (LOVENOX) SYR SC SCH (16:45)
[2022-11-15] MEDS: meTOprolol 5 MG/5 ML (LOPRESSOR) VIAL IV PRN ×2 (16:45→19:54)
[2022-11-15] MEDS: TAMSULOSIN 0.4 MG (FLOMAX) CAP PO SCH (18:28)
[2022-11-15] MEDS ORDERED: meTOprolol 5 MG/5 ML (LOPRESSOR) VIAL IV ONE (18:45)
[2022-11-15] MEDS: MIRTAZAPINE 15 MG (REMERON) TAB PO SCH (21:19)
[2022-11-15] MEDS: hydrALAZINE (APESOLINE) 20 MG/ML VIAL IV PRN (21:55)
[2022-11-16] MEDS: AMPICILLIN/SULBACTAM 3 GM/NS 100 ML IVPB IV SCH ×2 (00:19)
[2022-11-16] MEDS: RT-ALBUTEROL SULF 2.5 MG/3 ML PRE-MIX VIAL INH SCH ×6 (02:58→22:01)
[2022-11-16] MEDS: meTOprolol 5 MG/5 ML (LOPRESSOR) VIAL IV PRN ×4 (04:52→23:54)
[2022-11-16] MEDS: VASOPRESSIN INJECTION 20 UNIT in NS (IVPB) 100 ML IV SCH ×2 (05:01→15:51)
[2022-11-16 05:11] LABS: BASOPHILS % (AUTO) 0 % (0-10); EOSINOPHILS # (AUTO) 0.1 10^3/uL (0.0-0.3); EOSINOPHILS % (AUTO) 2 % (0-10); HEMATOCRIT 30 % (40-54); HEMOGLOBIN 9.6 g/dL (13.3-17.7); LYMPHOCYTES # (AUTO) 1.2 10^3/uL (1.0-4.0); LYMPHOCYTES % (AUTO) 13 % (12-44); MEAN CORPUSCULAR HEMOGLOBIN 27 pg (25-34); MEAN CORPUSCULAR HGB CONC 32 g/dL (32-36); MEAN CORPUSCULAR VOLUME 86 fL (80-99); MEAN PLATELET VOLUME 8.7 fL (9.0-12.2); MONOCYTES # (AUTO) 0.6 10^3/uL (0.0-1.0); MONOCYTES % (AUTO) 6 % (0-12); NEUTROPHILS # (AUTO) 7.1 10^3/uL (1.8-7.8); NEUTROPHILS % (AUTO) 75 % (42-75); PLATELET COUNT 170 10^3/uL (130-400); WHITE BLOOD COUNT 9.5 10^3/uL (4.3-11.0)
[2022-11-16 05:22] LABS: ALBUMIN 2.3 GM/DL (3.2-4.5); POTASSIUM 3.7 MMOL/L (3.6-5.0)
[2022-11-16 05:23] LABS: CALCIUM 8.6 MG/DL (8.5-10.1)
[2022-11-16 05:25] LABS: TOTAL PROTEIN 5.5 GM/DL (6.4-8.2)
[2022-11-16 05:27] LABS: BILIRUBIN,TOTAL 0.7 MG/DL (0.1-1.0)
[2022-11-16 05:28] LABS: CREATININE SERUM 1.04 MG/DL (0.60-1.30); PHOSPHORUS 2.3 MG/DL (2.3-4.7)
[2022-11-16 05:31] LABS: MAGNESIUM 2.1 MG/DL (1.6-2.4)
[2022-11-16] MEDS: KCL 20 MEQ TAB (K-DUR) PO SCH (05:49)
[2022-11-16] MEDS: inSUlin ASPART (NovoLOG) 1 UNIT/0.01 ML (CHARGE PER UNIT) SC SCH ×4 (05:49→18:10)
[2022-11-16] MEDS: MAGNESIUM 1 GM/100 ML IVPB 100 ML IV SCH (05:49)
[2022-11-16] MEDS: POTASSIUM CL 10MEQ/50ML IVPB 50 ML IV SCH ×3 (05:49→08:15)
[2022-11-16] MEDS: NS IV 500 ML 500 ML IV PRN (06:39)
[2022-11-16] MEDS: hydrALAZINE (APESOLINE) 20 MG/ML VIAL IV PRN ×3 (06:55→18:34)
[2022-11-16] MEDS: DIGOXIN 0.25 MG/ML (LANOXIN) 2 ML AMP IV SCH (08:15)
[2022-11-16] MEDS: PANTOPRAZOLE 40 MG (PROTONIX) VIAL IV SCH (08:15)
--- NOTE | 2022-11-16 08:40 | Progress Note - Hospitalist ---
Subjective HPI/CC On Admission Date Seen by Provider: Nov 16, 2022 Pelon Mccarty is a 77 year old male with PMH HTN, T2DM, BPH, dementia, intracranial hemorrhage, sacral ulcer, who presented with altered mental status. His says that he was not acting like himself. He was reportedly "gurgling". She says he was coughing up phlegm. She says he usually talks and is able to recognize his family. She says he walks with help. He has a "lift chair" at home . He has a sacral wound for which he is supposed to start seeing wound care in [place]. She says they bathe him every day. She appeared to be a bit defensive saying that "these things could happen in the hospital or fpc too". I let her know that it sounds like she has been doing a great job of taking care of him. She says they have been together for 57 years. I educated her on the natural progression of dementia. We discussed poor prognostic factors including debility, sacral ulcers, and aspiration. We discussed that based on his prior status, he will likely not be able to return home and she understood but remains hopeful he will recover. Subjective/Events-last exam Pt extubated. Reports doing well. States tired. No other complaints. No family at bedside. Focused Exam Time of Focused Exam: 02:30 Objective Exam Vital Signs Vital Signs Date Time Temp Pulse Resp B/P (MAP) Pulse Ox O2 Delivery O2 Flow Rate FiO2 11/16/22 08:00 117 137/89 (100) 95 Nasal Cannula 3.00 11/16/22 07:57 37.0 11/16/22 07:08 95 11/15/22 13:06 14 Capillary Refill : Greater Than 3 Seconds General Appearance: No Apparent Distress, Chronically ill Respiratory: Lungs Clear, No Respiratory Distress Cardiovascular: Irregularly Irregular, Tachycardia Gastrointestinal: Normal Bowel Sounds, Soft Neurologic/Psychiatric: Alert, Oriented x3 Results/Procedures Lab Laboratory Tests 11/16/22 04:55 Patient resulted labs reviewed. Imaging: Reviewed Imaging Report Assessment/Plan Assessment and Plan Assess & Plan/Chief Complaint Septic shock RML pneumonia Likely aspiration pneumonia Acute respiratory failure with hypoxia Elevated d-dimer Lactic acidosis KARSTEN Elevated troponin a-fib with RVR Extubated 11/15 Continue Unasyn Likely type II NSTEMI due to sepsis- cardiology consulted, appreciate recs Elevated d-dimer, CTA chest negative along with negative doppler of BLE Cardiology consulted, appreciate recs TeleICU consulted On digoxin and metoprolol for rate control- management per Cardiology Only on ppx Lovenox now due to history of ICH Dementia Sacral ulcer Poor prognosis Consult wound care Consult palliative care Dr Simon discussed poor prognosis with Discussed with son and and plan is to remain DNR but would be ok with intubation again if needed History of intracranial hemorrhage Clinically significant PT/OT DVT ppx: Lovenox Critical Care Ventilator Management DHRUV ROWAN MD Nov 16, 2022 08:40
--- NOTE | 2022-11-16 09:40 | Physical Therapy Evaluation ---
PT Evaluation-General Medical Diagnosis Admission Date Nov 10, 2022 at 02:45 Medical Diagnosis: septic shock, pnuemonia Onset Date: Nov 10, 2022 Therapy Diagnosis Therapy Diagnosis: impaired mobility Precautions Precautions/Isolations: Standard Precautions Referral Physician: Dave Reason for Referral: Evaluation/Treatment Medical History Additional Medical History Past Medical History Hypertension Dementia, Stroke (intracranial hemorrhage) Diabetes, Non-Insulin dep Reviewed History: Yes Social History Current Living Status: Spouse unknown entry, patient is too confused to answer questions, he is verbal but very confused Prior Prior Level of Function SCALE: Activities may be completed with or without assistive devices. 9-[id number]-zeknsdj completes the activity by him/herself with no assistance from a helper. 5-Set-up or Clean-up Assistance-helper sets up or cleans up; patient completes activity. Eckerty assists only prior to or following the activity. 4-Supervision or Touching Assistance-helper provides verbal cues and/or touching /steadying and/or contact guard assistance as patient completes activity. Assistance may be provided throughout the activity or intermittently. 3-Partial/Moderate Assistance-helper does LESS THAN HALF the effort. Eckerty lifts, holds or supports trunk or limbs, but provides less than half the effort. 2-Substantial/Maximal Assistance-helper does MORE THAN HALF the effort. Eckerty lifts or holds trunk or limbs and provides more than half the effort. 9-Bdciocnxk-yrksjq does ALL the effort. Patient does none of the effort to complete the activity. Or, the assistance of 2 or more helpers is required for the patient to complete the activity. If activity was not attempted, code reason: 7-Patient Refused. 9-Not Applicable-not attempted and the patient did not perform the activity before the current illness, exacerbation or injury. 10-Not Attempted due to Environmental Limitations-(lack of equipment, weather restraints, etc.). 88-Not Attempted due to Medical Conditions or Safety Concerns. chart states his helps him with transfers PT Evaluation-Current Subjective Patient in bed pre tx, agrees to PT, has no complaints of pain. Pt/Family Goals none stated Objective Patient Orientation: Person, Confused ROM/Strength ROM Lower Extremities patient resists movement Sensory Hearing: Functional Transfers Roll Left to Right (QC): 1 Sit to Lying (QC): 1 Lying to Sitting/Side of Bed(Q: 1 Patient sits to the side of the bed with assist of 2, resists movement, was able to sit for a couple of minutes before laying down. Patient has had a BM, nurse assisted with scooting up, rolling, and cleaning and getting new sheets. Balance Sitting Static: Poor Sitting Dynamic: Poor Treatment Patient was able to perform about 5 LAQ on each side before not participating any more. Assessment/Needs Patient in bed post tx with nurse in room to finish with bedding. Rehab Potential: Poor PT Human Resources Intern Goals Human Resources Intern Goals PT Human Resources Intern Goals Time Frame: Nov 23, 2022 Roll Left & Right (QC): 3 Sit to Lying (QC): 3 Lying-Sitting on Side/Bed(QC): 3 Sit to Stand (QC): 3 Chair/Nsu-ty-Kustt Xfer(QC): 3 PT Plan Problem List Problem List: Activity Tolerance, Functional Strength, Safety, Balance, Gait, Transfer, Bed Mobility, ROM Treatment/Plan Treatment Plan: Continue Plan of Care Treatment Plan: Bed Mobility, Education, Functional Activity Batool, Functional Strength, Gait, Safety, Therapeutic Exercise, Transfers Treatment Duration: Nov 23, 2022 Frequency: 6 times per week Estimated Hrs Per Day: .25 hour per day Patient and/or Family Agrees t: Yes Safety Risks/Education Patient Education: Correct Positioning, Safety Issues Teaching Recipient: Patient Teaching Methods: Demonstration, Discussion Response to Teaching: Reinforcement Needed Discharge Recommendations Plan Patient will perform bed mobility and transfer training, balance and endurance training, functional strengthening, and education, to improve functional mobility and independence at home. Therapy Discharge Recommendati: Other, See Comments (NH) Time Time In: 912 Time Out: 926 DATE: Nov 16, 2022 Total Billed Treatment Time: 14 Total Billed Treatment 1 visit DONALD GALVEZ PT Nov 16, 2022 09:40
[2022-11-16] MEDS: COLLAGENASE 30 GM (SANTYL) TUBE TP SCH (10:01)
--- NOTE | 2022-11-16 10:32 | Tele-ICU Progress Note ---
Subjective Date Seen by a Provider: Nov 16, 2022 Time Seen by a Provider: 10:32 Subjective/Events-last exam (Tele-ICU Physician , Progress Note ) Service provided via interactive audio and video telecommunications E-CARE system to a patient admitted to ICU bed in [facility]. Patient is seen today due to persistent need of ICU care Available chart/ vitals / labs / Images reviewed Video assessment done using teleICU camera, rest of exam as per RN Discussed with RN Events overnight : Afebrile hemodynamically stable Respiratory - I/O = neg Drips: lr 150 Pressors- ON OFF - saij Consultants: Hospital course: (11/10) 77/M- Unresponsive home 2 hrs, EMS shock enroute, Intubated, Sbrady. Non verbal baseline dementia/cva. (11/11) afib rvr --- dnr--levo and precedex, remains vented 11/12-AC 16 450 35% + 5 11/14- increased secretions ETT , 35 % , OFF pressors 11/15 EXTUBATED , HTN - as per Dr Acosta's discussion with and son - OK to reintubate if failed , trach and LTAC are acceptable A/P ACUTE HYPOXIC RESPIRATORY FAILURE DUE TO PNEUMONIA AND SEPSIS. ( CTCHEST 11/13 - no PE ) - INtubated 11/10- 11/15 EXTUBATED ( as per Dr Acosta's discussion with and son - OK to reintubate if failed , trach and LTAC are acceptable - on 3l , good cough .GRAM POSITIVE SEPTIC SHOCK ( PNA and wounds ) -STAPG AUREUS PNEUMONIA PRESENT ON ADMISSION - FINISHED abx ( NEG covif flu) KARSTEN -resolved - STOP IVF AFIB WITH RVR -amio gtt 11/11 -->OFF , cardizem gtt of 11/13 , on dig IV - AC with lovenox 80 bid -> 40 on 11/14 ( as per cards note - not on anticoagulation secondary to his frequent falls AMS DUE TO BASE LINE DEMENTIA AND METABOLIC ENCEPHALOPATHY - at baseline Anemia - stable , probably delutional Nutrition - needs eval swallow Lines : R PICC 11/11 , r a line , (Central Line Necessity Reviewed) Adams: + OG: Nutrition: seallow eval Analgesia: Anxiety/ delirium VTE Prophylaxis: shorty 40 bid Stress Ulcer Prophylaxis: na Plans in collaboration with bedside consultants and IM MDs. Discussed with RN to reach out if any questions or concerns A total of 32 minutes of critical care time was devoted to this patient today, required to treat and/or prevent further deterioration of critical care condition ( as above ) . Sepsis Event Evaluation Height, Weight, BMI Height: '" Weight: lbs. oz. kg; 28.56 BMI Method: Focused Exam Time of Focused Exam: 02:30 Exam Exam Patient acknowledged, consented, and participated in this virtual visit which was conducted using real time audio/video Vital Signs Date Time Temp Pulse Resp B/P (MAP) Pulse Ox O2 Delivery O2 Flow Rate FiO2 11/16/22 10:19 High Flow N/C 3.00 97 11/16/22 10:00 125 154/124 (137) 97 Nasal Cannula 3.00 11/16/22 09:00 102 159/88 (112) 94 Nasal Cannula 3.00 11/16/22 08:00 117 137/89 (100) 95 Nasal Cannula 3.00 11/16/22 08:00 95 Nasal Cannula 3.00 11/16/22 07:57 37.0 11/16/22 07:08 High Flow N/C 3.00 95 11/16/22 07:00 98 174/101 (119) 96 Nasal Cannula 3.00 11/16/22 07:00 131 11/16/22 06:00 99 173/99 (123) 95 Nasal Cannula 3.00 11/16/22 05:00 96 182/86 (118) 95 Nasal Cannula 3.00 11/16/22 04:00 102 153/85 (107) 95 Nasal Cannula 3.00 11/16/22 04:00 94 Nasal Cannula 3.00 11/16/22 03:00 101 144/88 (106) 98 Nasal Cannula 3.00 11/16/22 02:59 High Flow N/C 3.00 96 11/16/22 02:00 113 169/88 (115) 95 Nasal Cannula 3.00 11/16/22 01:00 110 11/16/22 01:00 118 132/94 (107) 95 Nasal Cannula 3.00 11/16/22 00:00 125 135/85 (102) 95 Nasal Cannula 3.00 11/15/22 23:59 95 Nasal Cannula 3.00 11/15/22 23:00 118 165/100 (121) 95 Nasal Cannula 3.00 11/15/22 22:49 High Flow N/C 3.00 96 11/15/22 22:00 94 164/87 (112) 94 Nasal Cannula 3.00 11/15/22 21:00 98 180/92 (121) 95 Nasal Cannula 3.00 11/15/22 20:00 94 Nasal Cannula 3.00 11/15/22 20:00 104 176/105 (128) 95 Nasal Cannula 3.00 11/15/22 20:00 37.8 11/15/22 19:00 101 11/15/22 19:00 91 169/125 (140) 95 Nasal Cannula 3.00 11/15/22 18:57 High Flow N/C 3.00 96 11/15/22 18:00 93 178/125 (145) 94 Nasal Cannula 3.00 11/15/22 17:00 88 167/103 (110) 96 Nasal Cannula 3.00 11/15/22 16:00 96 Mechanical Ventilator 40 11/15/22 16:00 98 200/108 (127) 97 Nasal Cannula 3.00 11/15/22 16:00 36.9 11/15/22 15:25 High Flow N/C 3.00 96 11/15/22 15:00 86 180/112 (123) 94 Nasal Cannula 3.00 11/15/22 14:00 84 148/95 (120) 93 Mechanical Ventilator 30.00 11/15/22 13:12 30 11/15/22 13:06 85 14 95 30 11/15/22 13:00 87 150/86 (110) 95 Mechanical Ventilator 30.00 11/15/22 12:42 77 11/15/22 12:00 36.3 11/15/22 12:00 86 143/81 (100) 95 Mechanical Ventilator 30.00 11/15/22 12:00 96 Mechanical Ventilator 40 11/15/22 11:00 88 150/80 (113) 95 Mechanical Ventilator 30.00 11/15/22 10:34 85 16 96 30 I & O 11/16/22 07:00 Intake Total 350 ml Output Total 2350 ml Balance -2000 ml Height & Weight Height: '" Weight: lbs. oz. kg; 28.56 BMI Method: General Appearance: No Apparent Distress, Chronically ill HEENT: PERRL/EOMI Neck: Normal Inspection, Supple Respiratory: Lungs Clear, No Respiratory Distress Cardiovascular: Irregularly Irregular, Tachycardia Capillary Refill: Greater Than 3 Seconds Extremity: Other (FINGERS AND FEET VERY COLD, WITH DECREASED CAP REFILL. UNABLE TO PALPATE RADIAL OR PEDAL PULSES. ) Neurologic/Psychiatric: Alert, Oriented x3 Skin: Cool, Pallor, Other Results Lab Laboratory Tests 11/15/22 03:44 11/16/22 04:55 Assessment/Plan Assessment/Plan 1 CRISSY MOORE MD Nov 16, 2022 10:32
[2022-11-16] MEDS: MEMANTINE 10 MG (NAMENDA) TABLET PO SCH ×2 (11:04→21:41)
[2022-11-16] MEDS: OLANZapine 5 MG ODT (ZyPREXA ZYDIS) PO SCH ×2 (11:04→21:41)
[2022-11-16] MEDS: dilTIAZem DRIP PRE-MIX 125 ML IV SCH (11:04)
[2022-11-16] MEDS: PHENYLEPHRINE DRIP 250 ML IV SCH (11:43)
--- NOTE | 2022-11-16 14:32 | Progress Note - Cardiology ---
Cardiology SOAP Progress Note Subjective: Extubated, but still noncommunicative. by bedside and states that he does recognize her and is able to communicated meaningfully from time to time Objective: I&O/Vital Signs 11/16/22 11/16/22 11/16/22 11/16/22 02:59 03:00 04:00 04:00 Pulse 101 102 B/P (MAP) 144/88 (106) 153/85 (107) Pulse Ox 98 94 95 O2 Delivery High Flow N/C Nasal Cannula Nasal Cannula Nasal Cannula O2 Flow Rate 3.00 3.00 3.00 3.00 FiO2 96 11/16/22 11/16/22 11/16/22 11/16/22 05:00 06:00 07:00 07:00 Pulse 96 99 131 98 B/P (MAP) 182/86 (118) 173/99 (123) 174/101 (119) Pulse Ox 95 95 96 O2 Delivery Nasal Cannula Nasal Cannula Nasal Cannula O2 Flow Rate 3.00 3.00 3.00 11/16/22 11/16/22 11/16/22 11/16/22 07:08 07:57 08:00 08:00 Temp 37.0 Pulse 117 B/P (MAP) 137/89 (100) Pulse Ox 95 95 O2 Delivery High Flow N/C Nasal Cannula Nasal Cannula O2 Flow Rate 3.00 3.00 3.00 FiO2 95 11/16/22 11/16/22 11/16/22 11/16/22 09:00 10:00 10:19 11:00 Pulse 102 125 104 B/P (MAP) 159/88 (112) 154/124 (137) 189/105 (123) Pulse Ox 94 97 97 O2 Delivery Nasal Cannula Nasal Cannula High Flow N/C Nasal Cannula O2 Flow Rate 3.00 3.00 3.00 3.00 FiO2 97 11/16/22 11/16/22 11/16/22 11/16/22 11:56 12:00 12:00 12:25 Temp 37.1 Pulse 124 116 Resp 30 B/P (MAP) 174/74 (102) Pulse Ox 97 95 O2 Delivery Nasal Cannula Nasal Cannula O2 Flow Rate 3.00 3.00 11/16/22 11/16/22 13:00 14:00 Pulse 108 101 B/P (MAP) 162/73 (98) 160/82 (125) Pulse Ox 96 O2 Delivery Nasal Cannula Nasal Cannula O2 Flow Rate 3.00 3.00 11/16/22 00:00 Intake Total 0 ml Output Total 1150 ml Balance -1150 ml Constitutional: other (intubated and on mech vent, unresponsive) Respiratory: No accessory muscle use; chest expansion is symmetric, chest is bilaterally symmetric, other (fair air entry, scattered rhonchi and coarse cractles) Cardiovascular: irregularly irregular, S1 and S2, systolic murmur (soft JOHN PAUL at card base) Gastrointestional: No tender; soft; No guarding, No rebound; audible bowel sounds Extremities: No clubbing, No cyanosis, No significant edema Neurologic/Psychiatric: other (on mech vent, unresponsive) Skin: cool, pallor Results/Procedures: Labs Laboratory Tests 11/15/22 18:11: Glucometer 104 11/16/22 00:17: Glucometer 92 11/16/22 04:55: White Blood Count 9.5, Red Blood Count 3.51L, Hemoglobin 9.6L, Hematocrit 30L, Mean Corpuscular Volume 86, Mean Corpuscular Hemoglobin 27, Mean Corpuscular Hemoglobin Concent 32, Red Cell Distribution Width 15.9H, Platelet Count 170, Mean Platelet Volume 8.7L, Immature Granulocyte % (Auto) 4, Neutrophils (%) (Auto) 75, Lymphocytes (%) (Auto) 13, Monocytes (%) (Auto) 6, Eosinophils (%) (Auto) 2, Basophils (%) (Auto) 0, Neutrophils # (Auto) 7.1, Lymphocytes # (Auto) 1.2, Monocytes # (Auto) 0.6, Eosinophils # (Auto) 0.1, Basophils # (Auto) 0.0, Immature Granulocyte # (Auto) 0.4H, Sodium Level 143, Potassium Level 3.7, Chloride Level 107, Carbon Dioxide Level 26, Anion Gap 10, Blood Urea Nitrogen 18, Creatinine 1.04, Estimat Glomerular Filtration Rate 74, BUN/Creatinine Ratio 17, Glucose Level 90, Calcium Level 8.6, Corrected Calcium 10.0, Phosphorus Level 2.3, Magnesium Level 2.1, Total Bilirubin 0.7, Aspartate Amino Transf (AST/SGOT) 22, Alanine Aminotransferase (ALT/SGPT) 15, Alkaline Phosphatase 115, Total Protein 5.5L, Albumin 2.3L 11/16/22 11:48: Glucometer 99 Microbiology 11/12/22 Blood Culture - Preliminary, Resulted No growth 11/10/22 MRSA Screen - Final, Complete MRSA not isolated 11/10/22 Gram Stain - Final, Complete 11/10/22 Wound Culture - Final, Complete Mixed Bacterial Guera With Staphylococcus aureus YEAST 11/10/22 Urine Culture - Final, Complete NO GROWTH Laboratory Tests 11/15/22 03:44 11/16/22 04:55 A/P: Assessment: Septic shock (due to pneumonia and decubitus ulcer) - improved RML pneumonia - managed by the Hospitalist svce AF with RVR - reported to be chronic and permanent - stated to be intolerant to full anticoag (given h/o ICH in 2021 when on anticoag) - Dig and dilt, as needed, for rate control - D/c amio, given lung issues and chronic perm a fib for which we cannot adequately anticoagulate (given h/o ICH when on anticoag in 2021) Bacteremia: Cxs showing GPC in clusters; wound cx demonstrated Staph aereus - no murmur noted on exam and no significant regurgitation seen on TTE - cont to montior, ? need for FELIZ at some point in future, but likely nidus for infection is sacral decubitus ulcers - Hosp svce managing Elevated troponin- likely Type II NSTEMI due to transient hypoxia and hypotension. - EF 50%, low normal without regional WMA. Plan: * Complex management due to multiple CV comorbidities * Full anticoag appears contraindicated (see discussion above). DVT prophylaxis dose of enoxaparin appears reasonable, given no IC bleed reported on CT head of 11/10/22 * HR well controlled - off cardiem gtt, continue bb as needed * Monitor labs Clinical Quality Measures Type of Care: Type of Care: Pallative Care GAYLA CASIANO MD FACP FAC CCDS Nov 16, 2022 14:32
[2022-11-16] MEDS: ENOXAPARIN 40 MG/0.4 ML (LOVENOX) SYR SC SCH (17:40)
[2022-11-16] MEDS: TAMSULOSIN 0.4 MG (FLOMAX) CAP PO SCH (18:10)
[2022-11-16] MEDS: MIRTAZAPINE 15 MG (REMERON) TAB PO SCH (21:41)
[2022-11-17] MEDS: PHENYLEPHRINE DRIP 250 ML IV SCH ×2 (00:50→12:52)
[2022-11-17] MEDS: fentaNYL DRIP PRE-MIX 250 ML IV SCH (01:00)
[2022-11-17] MEDS: RT-ALBUTEROL SULF 2.5 MG/3 ML PRE-MIX VIAL INH SCH ×2 (02:23→08:12)
[2022-11-17] MEDS: VASOPRESSIN INJECTION 20 UNIT in NS (IVPB) 100 ML IV SCH ×2 (03:15→12:52)
[2022-11-17] MEDS: hydrALAZINE (APESOLINE) 20 MG/ML VIAL IV PRN (04:42)
[2022-11-17 04:51] LABS: BASOPHILS # (AUTO) 0.1 10^3/uL (0.0-0.1); BASOPHILS % (AUTO) 1 % (0-10); EOSINOPHILS # (AUTO) 0.2 10^3/uL (0.0-0.3); EOSINOPHILS % (AUTO) 2 % (0-10); HEMATOCRIT 34 % (40-54); HEMOGLOBIN 10.5 g/dL (13.3-17.7); LYMPHOCYTES # (AUTO) 1.4 10^3/uL (1.0-4.0); LYMPHOCYTES % (AUTO) 13 % (12-44); MEAN CORPUSCULAR HEMOGLOBIN 27 pg (25-34); MEAN CORPUSCULAR HGB CONC 31 g/dL (32-36); MEAN CORPUSCULAR VOLUME 86 fL (80-99); MEAN PLATELET VOLUME 8.4 fL (9.0-12.2); MONOCYTES # (AUTO) 0.7 10^3/uL (0.0-1.0); MONOCYTES % (AUTO) 7 % (0-12); NEUTROPHILS # (AUTO) 7.6 10^3/uL (1.8-7.8); NEUTROPHILS % (AUTO) 73 % (42-75); PLATELET COUNT 210 10^3/uL (130-400); WHITE BLOOD COUNT 10.3 10^3/uL (4.3-11.0)
[2022-11-17 04:57] LABS: ALBUMIN 2.6 GM/DL (3.2-4.5); POTASSIUM 3.8 MMOL/L (3.6-5.0)
[2022-11-17 04:58] LABS: CALCIUM 8.9 MG/DL (8.5-10.1)
[2022-11-17 05:00] LABS: TOTAL PROTEIN 5.9 GM/DL (6.4-8.2)
[2022-11-17 05:01] LABS: BILIRUBIN,TOTAL 0.9 MG/DL (0.1-1.0)
[2022-11-17 05:03] LABS: CREATININE SERUM 0.99 MG/DL (0.60-1.30); PHOSPHORUS 2.5 MG/DL (2.3-4.7)
[2022-11-17 05:06] LABS: MAGNESIUM 2.2 MG/DL (1.6-2.4)
[2022-11-17] MEDS: POTASSIUM CL 10MEQ/50ML IVPB 50 ML IV SCH ×3 (05:56→07:53)
[2022-11-17] MEDS: NS IV 500 ML 500 ML IV PRN (05:56)
[2022-11-17] MEDS: MAGNESIUM 1 GM/100 ML IVPB 100 ML IV SCH (06:00)
[2022-11-17] MEDS: inSUlin ASPART (NovoLOG) 1 UNIT/0.01 ML (CHARGE PER UNIT) SC SCH ×5 (06:00→17:35)
[2022-11-17] MEDS: KCL 20 MEQ TAB (K-DUR) PO SCH (06:00)
[2022-11-17] MEDS: meTOprolol 5 MG/5 ML (LOPRESSOR) VIAL IV PRN (06:01)
[2022-11-17] MEDS: OLANZapine 5 MG ODT (ZyPREXA ZYDIS) PO SCH ×2 (07:53→21:35)
[2022-11-17] MEDS: DIGOXIN 0.25 MG/ML (LANOXIN) 2 ML AMP IV SCH (07:53)
[2022-11-17] MEDS: PANTOPRAZOLE 40 MG (PROTONIX) VIAL IV SCH (07:53)
[2022-11-17] MEDS: MEMANTINE 10 MG (NAMENDA) TABLET PO SCH ×2 (07:53→21:35)
[2022-11-17] MEDS: dilTIAZem DRIP PRE-MIX 125 ML IV SCH (07:54)
[2022-11-17] MEDS: COLLAGENASE 30 GM (SANTYL) TUBE TP SCH (07:54)
--- NOTE | 2022-11-17 08:10 | Tele-ICU Progress Note ---
Progress Note video rounds completed 77 y/o male now DNR admitted with sepsis and resp failure. Was intubated but now extubated and on nasal cannula O2 Being tretaed for A fib / rvr but relatively well controlled. PE: appears comfortable in bed Hr 108-115, iregular BP 170/91 CArdiology following Continue supportive care Focused Exam Height, Weight, BMI Height: '" Weight: lbs. oz. kg; 28.78 BMI Method: Time of Focused Exam: 02:30 Labs Laboratory Tests 11/17/22 04:35 Results Results/Procedures Labs Laboratory Tests 11/16/22 04:55 11/17/22 04:35 Patient resulted labs reviewed. Imaging: Reviewed Imaging Report Results Results/Procedures Lab Laboratory Tests 11/16/22 04:55 11/17/22 04:35 Results Labs Labs Laboratory Tests 11/16/22 11:48: Glucometer 99 11/16/22 17:21: Glucometer 110 11/16/22 23:51: Glucometer 134H 11/17/22 04:35: White Blood Count 10.3, Red Blood Count 3.89L, Hemoglobin 10.5L, Hematocrit 34L, Mean Corpuscular Volume 86, Mean Corpuscular Hemoglobin 27, Mean Corpuscular Hemoglobin Concent 31L, Red Cell Distribution Width 15.9H, Platelet Count 210, Mean Platelet Volume 8.4L, Immature Granulocyte % (Auto) 5, Neutrophils (%) (Auto) 73, Lymphocytes (%) (Auto) 13, Monocytes (%) (Auto) 7, Eosinophils (%) (Auto) 2, Basophils (%) (Auto) 1, Neutrophils # (Auto) 7.6, Lymphocytes # (Auto) 1.4, Monocytes # (Auto) 0.7, Eosinophils # (Auto) 0.2, Basophils # (Auto) 0.1, Immature Granulocyte # (Auto) 0.5H, Sodium Level 141, Potassium Level 3.8, Chloride Level 105, Carbon Dioxide Level 24, Anion Gap 12, Blood Urea Nitrogen 16, Creatinine 0.99, Estimat Glomerular Filtration Rate 78, BUN/Creatinine Ratio 16, Glucose Level 123H, Calcium Level 8.9, Corrected Calcium 10.0, Phosphorus Level 2.5, Magnesium Level 2.2, Total Bilirubin 0.9, Aspartate Amino Transf (AST/SGOT) 23, Alanine Aminotransferase (ALT/SGPT) 16, Alkaline Phosphatase 105, Total Protein 5.9L, Albumin 2.6L Microbiology 11/12/22 Blood Culture - Preliminary, Resulted No growth 11/10/22 MRSA Screen - Final, Complete MRSA not isolated 11/10/22 Gram Stain - Final, Complete 11/10/22 Wound Culture - Final, Complete Mixed Bacterial Guera With Staphylococcus aureus YEAST 11/10/22 Urine Culture - Final, Complete NO GROWTH VALE LEI MD Nov 17, 2022 08:10
[2022-11-17 08:13] VITALS: BP 166/105
--- NOTE | 2022-11-17 08:43 | Progress Note - Hospitalist ---
Subjective HPI/CC On Admission Date Seen by Provider: Nov 17, 2022 Pelon Mccarty is a 77 year old male with PMH HTN, T2DM, BPH, dementia, intracranial hemorrhage, sacral ulcer, who presented with altered mental status. His says that he was not acting like himself. He was reportedly "gurgling". She says he was coughing up phlegm. She says he usually talks and is able to recognize his family. She says he walks with help. He has a "lift chair" at home . He has a sacral wound for which he is supposed to start seeing wound care in [place]. She says they bathe him every day. She appeared to be a bit defensive saying that "these things could happen in the hospital or group home too". I let her know that it sounds like she has been doing a great job of taking care of him. She says they have been together for 57 years. I educated her on the natural progression of dementia. We discussed poor prognostic factors including debility, sacral ulcers, and aspiration. We discussed that based on his prior status, he will likely not be able to return home and she understood but remains hopeful he will recover. Subjective/Events-last exam Pt remains extubated and confused. He is pleasantly confused though. Knows he is able to eat breakfast but otherwise does not seem oriented to person or place. No family at beside. Focused Exam Time of Focused Exam: 02:30 Objective Exam Vital Signs Vital Signs Date Time Temp Pulse Resp B/P (MAP) Pulse Ox O2 Delivery O2 Flow Rate FiO2 11/17/22 08:13 36.4 116 95 11/17/22 06:00 10 166/105 (125) Nasal Cannula 3.00 11/17/22 02:24 97 Capillary Refill : Greater Than 3 Seconds General Appearance: No Apparent Distress, Chronically ill Respiratory: Lungs Clear, No Accessory Muscle Use, Other (on 3lpm) Cardiovascular: Irregularly Irregular, Tachycardia Extremity: No Pedal Edema Neurologic/Psychiatric: Alert, Disoriented Results/Procedures Lab Laboratory Tests 11/17/22 04:35 Patient resulted labs reviewed. Imaging: Reviewed Imaging Report Assessment/Plan Assessment and Plan Assess & Plan/Chief Complaint Septic shock- resolved RML pneumonia Likely aspiration pneumonia Acute respiratory failure with hypoxia Elevated d-dimer Lactic acidosis KARSTEN Elevated troponin a-fib with RVR Extubated 11/15 Completed Unasyn Likely type II NSTEMI due to sepsis- cardiology consulted, appreciate recs Elevated d-dimer, CTA chest negative along with negative doppler of BLE Cardiology consulted, appreciate recs TeleICU consulted On digoxin and metoprolol for rate control- management per Cardiology Rate quite elevated this AM with position changes but back down to 100- 105s when I was at bedside, discussed with RN- defer to cardiology Only on ppx Lovenox now due to history of ICH Dementia Sacral ulcer Poor prognosis Consult wound care Consult palliative care Remains DNR (no CPR) but ok with reintubation if needed History of intracranial hemorrhage Clinically significant PT/OT DVT ppx: Lovenox Critical Care Ventilator Management DHRUV ROWAN MD Nov 17, 2022 08:43
--- NOTE | 2022-11-17 14:37 | Progress Note - Cardiology ---
Cardiology SOAP Progress Note Subjective: Moderately confused but does answer some questions appropriately No cp or palp or shortness of breath Objective: I&O/Vital Signs 11/17/22 11/17/22 11/17/22 11/17/22 03:00 04:00 04:00 05:00 Pulse 131 118 131 Resp 13 14 14 B/P (MAP) 177/109 (131) 177/98 (124) 167/101 (123) Pulse Ox 95 93 95 94 O2 Delivery Nasal Cannula Nasal Cannula Nasal Cannula Nasal Cannula O2 Flow Rate 3.00 3.00 3.00 3.00 11/17/22 11/17/22 11/17/22 11/17/22 06:00 07:00 07:17 07:50 Temp 36.4 Pulse 118 120 116 Resp 10 27 B/P (MAP) 166/105 (125) 170/91 (117) Arterial Line Pulse Ox 95 97 O2 Delivery Nasal Cannula Nasal Cannula O2 Flow Rate 3.00 3.00 11/17/22 11/17/22 11/17/22 11/17/22 08:00 08:00 08:13 09:00 Temp 36.4 Pulse 118 116 110 Resp 8 11 B/P (MAP) 145/100 (115) 155/106 (122) Pulse Ox 94 96 95 98 O2 Delivery Nasal Cannula Nasal Cannula Nasal Cannula O2 Flow Rate 3.00 3.00 3.00 11/17/22 11/17/22 11/17/22 11/17/22 10:00 11:00 11:47 12:00 Temp 36.4 Pulse 120 96 Resp 9 13 B/P (MAP) 129/86 (100) 150/95 (113) Pulse Ox 97 96 96 O2 Delivery Nasal Cannula Nasal Cannula Nasal Cannula O2 Flow Rate 3.00 3.00 3.00 11/17/22 11/17/22 11/17/22 11/17/22 12:00 12:52 13:00 14:00 Pulse 114 108 95 87 Resp 9 12 11 B/P (MAP) 151/107 (122) 162/67 (98) 166/93 (117) Pulse Ox 92 93 96 O2 Delivery Nasal Cannula Nasal Cannula Nasal Cannula O2 Flow Rate 3.00 3.00 3.00 11/17/22 00:00 Intake Total 510 ml Output Total 700 ml Balance -190 ml Constitutional: No AAO x 3; other (extubated, Moderately confused but does answer some questions appropriately) Respiratory: No accessory muscle use; chest expansion is symmetric, chest is bilaterally symmetric, other (fair air entry, scattered rhonchi and coarse cractles) Cardiovascular: irregularly irregular, S1 and S2, systolic murmur (soft JOHN PAUL at card base) Gastrointestional: No tender; soft; No guarding, No rebound; audible bowel sounds Extremities: No clubbing, No cyanosis, No significant edema Neurologic/Psychiatric: No oriented x 3; other (moves all limbs equally) Skin: normal color, warm/dry, pallor; No rash on exposed areas Results/Procedures: Labs Laboratory Tests 11/16/22 17:21: Glucometer 110 11/16/22 23:51: Glucometer 134H 11/17/22 04:35: White Blood Count 10.3, Red Blood Count 3.89L, Hemoglobin 10.5L, Hematocrit 34L, Mean Corpuscular Volume 86, Mean Corpuscular Hemoglobin 27, Mean Corpuscular Hemoglobin Concent 31L, Red Cell Distribution Width 15.9H, Platelet Count 210, Mean Platelet Volume 8.4L, Immature Granulocyte % (Auto) 5, Neutrophils (%) (Auto) 73, Lymphocytes (%) (Auto) 13, Monocytes (%) (Auto) 7, Eosinophils (%) (Auto) 2, Basophils (%) (Auto) 1, Neutrophils # (Auto) 7.6, Lymphocytes # (Auto) 1.4, Monocytes # (Auto) 0.7, Eosinophils # (Auto) 0.2, Basophils # (Auto) 0.1, Immature Granulocyte # (Auto) 0.5H, Sodium Level 141, Potassium Level 3.8, Chloride Level 105, Carbon Dioxide Level 24, Anion Gap 12, Blood Urea Nitrogen 16, Creatinine 0.99, Estimat Glomerular Filtration Rate 78, BUN/Creatinine Ratio 16, Glucose Level 123H, Calcium Level 8.9, Corrected Calcium 10.0, Phosphorus Level 2.5, Magnesium Level 2.2, Total Bilirubin 0.9, Aspartate Amino Transf (AST/SGOT) 23, Alanine Aminotransferase (ALT/SGPT) 16, Alkaline Phosphatase 105, Total Protein 5.9L, Albumin 2.6L 11/17/22 11:29: Glucometer 140H Microbiology 11/12/22 Blood Culture - Preliminary, Resulted No growth 11/10/22 MRSA Screen - Final, Complete MRSA not isolated 11/10/22 Gram Stain - Final, Complete 11/10/22 Wound Culture - Final, Complete Mixed Bacterial Guera With Staphylococcus aureus YEAST 11/10/22 Urine Culture - Final, Complete NO GROWTH Laboratory Tests 11/16/22 04:55 11/17/22 04:35 A/P: Assessment: Septic shock (due to pneumonia and decubitus ulcer) - improved RML pneumonia - managed by the Hospitalist svce AF with RVR - reported to be chronic and permanent - stated to be intolerant to full anticoag (given h/o ICH in 2021 when on anticoag) - Dig and dilt, as needed, for rate control - D/c amio, given lung issues and chronic perm a fib for which we cannot adequately anticoagulate (given h/o ICH when on anticoag in 2021) Bacteremia: Cxs showing GPC in clusters; wound cx demonstrated Staph aereus - no murmur noted on exam and no significant regurgitation seen on TTE - cont to montior, ? need for FELIZ at some point in future, but likely nidus for infection is sacral decubitus ulcers - Hosp svce managing Elevated troponin- likely Type II NSTEMI due to transient hypoxia and hypotension. - EF 50%, low normal without regional WMA. Plan: * Complex management due to multiple CV comorbidities * Full anticoag appears contraindicated (see discussion above). DVT prophylaxis dose of enoxaparin appears reasonable, given no IC bleed reported on CT head of 11/10/22 * HR well controlled - off cardiem gtt, continue bb as needed * Monitor labs Clinical Quality Measures Type of Care: Type of Care: Pallative Care GAYLA CASIANO MD FACP FAC CCDS Nov 17, 2022 14:37
[2022-11-17] MEDS: TAMSULOSIN 0.4 MG (FLOMAX) CAP PO SCH (15:41)
[2022-11-17] MEDS: ENOXAPARIN 40 MG/0.4 ML (LOVENOX) SYR SC SCH (17:50)
[2022-11-17] MEDS: MIRTAZAPINE 15 MG (REMERON) TAB PO SCH (21:35)
[2022-11-18] MEDS: fentaNYL DRIP PRE-MIX 250 ML IV SCH (01:00)
[2022-11-18] MEDS: VASOPRESSIN INJECTION 20 UNIT in NS (IVPB) 100 ML IV SCH ×3 (01:29→23:47)
[2022-11-18] MEDS: meTOprolol 5 MG/5 ML (LOPRESSOR) VIAL IV PRN ×3 (02:04→11:38)
[2022-11-18] MEDS: PHENYLEPHRINE DRIP 250 ML IV SCH ×2 (03:30→10:33)
[2022-11-18 05:47] LABS: BASOPHILS % (AUTO) 0 % (0-10); EOSINOPHILS # (AUTO) 0.4 10^3/uL (0.0-0.3); EOSINOPHILS % (AUTO) 4 % (0-10); HEMATOCRIT 29 % (40-54); HEMOGLOBIN 9.2 g/dL (13.3-17.7); LYMPHOCYTES # (AUTO) 1.5 10^3/uL (1.0-4.0); LYMPHOCYTES % (AUTO) 16 % (12-44); MEAN CORPUSCULAR HEMOGLOBIN 27 pg (25-34); MEAN CORPUSCULAR HGB CONC 32 g/dL (32-36); MEAN CORPUSCULAR VOLUME 86 fL (80-99); MEAN PLATELET VOLUME 8.5 fL (9.0-12.2); MONOCYTES # (AUTO) 0.6 10^3/uL (0.0-1.0); MONOCYTES % (AUTO) 6 % (0-12); NEUTROPHILS # (AUTO) 6.5 10^3/uL (1.8-7.8); NEUTROPHILS % (AUTO) 69 % (42-75); PLATELET COUNT 202 10^3/uL (130-400); WHITE BLOOD COUNT 9.5 10^3/uL (4.3-11.0)
[2022-11-18] MEDS: inSUlin ASPART (NovoLOG) 1 UNIT/0.01 ML (CHARGE PER UNIT) SC SCH ×5 (06:00→23:42)
[2022-11-18] MEDS: POTASSIUM CL 10MEQ/50ML IVPB 50 ML IV SCH (06:00)
[2022-11-18] MEDS: KCL 20 MEQ TAB (K-DUR) PO SCH (06:00)
[2022-11-18] MEDS: MAGNESIUM 1 GM/100 ML IVPB 100 ML IV SCH (06:00)
[2022-11-18 06:03] LABS: ALBUMIN 2.3 GM/DL (3.2-4.5)
[2022-11-18 06:04] LABS: POTASSIUM 3.9 MMOL/L (3.6-5.0)
[2022-11-18 06:05] LABS: CALCIUM 8.5 MG/DL (8.5-10.1)
[2022-11-18 06:06] LABS: TOTAL PROTEIN 5.3 GM/DL (6.4-8.2)
[2022-11-18 06:08] LABS: BILIRUBIN,TOTAL 0.6 MG/DL (0.1-1.0)
[2022-11-18 06:09] LABS: PHOSPHORUS 2.5 MG/DL (2.3-4.7)
[2022-11-18 06:10] LABS: CREATININE SERUM 1.13 MG/DL (0.60-1.30)
[2022-11-18 06:13] LABS: MAGNESIUM 2.1 MG/DL (1.6-2.4)
[2022-11-18] MEDS ORDERED: POTASSIUM BICARB 20 MEQ (EFFER-K) TABLET PO NR (08:00)
[2022-11-18] MEDS: MEMANTINE 10 MG (NAMENDA) TABLET PO SCH ×2 (08:05→20:10)
[2022-11-18] MEDS: OLANZapine 5 MG ODT (ZyPREXA ZYDIS) PO SCH ×2 (08:05→20:10)
[2022-11-18] MEDS: PANTOPRAZOLE 40 MG (PROTONIX) VIAL IV SCH (08:05)
[2022-11-18] MEDS: DIGOXIN 0.25 MG/ML (LANOXIN) 2 ML AMP IV SCH (08:06)
--- NOTE | 2022-11-18 08:43 | Speech Therapy Progress Note ---
Therapy Progress Note The clinician contacted the floor at 0840 to discuss the patient's oropharyngeal swallowing function with the treating RN. A message was left requesting a returned call. The occupational therapist completed a medical chart review and observed a concern of aspiration. The patient's treating RN on 11/16/22 completed a RN Dysphagia Screening and revealed, "PT ABLE TO SWALLOW THIN LIQUIDS W NO ISSUES." If swallowing concerns arise, please contact speech pathology for a formal clinical bedside swallowing evaluation. Thank you! GENI PINEDO Nov 18, 2022 08:43
--- NOTE | 2022-11-18 09:22 | Physical Therapy Daily Note ---
PT Daily Note-Current Subjective Patient will not open his eyes. PT assist RN for dressing change. Pain Section J - Health Conditions 1. Rarely or not at all 2. Occasionally 3. Frequently 4. Almost constantly 8. Unable to answer Pain Effect on Sleep: 8 Pain Interference with Therapy: 8 Pain Interference w/Day-to-Day: 8 Mental Status Patient Orientation: Confused, Listless Attachments: Oxygen, Adams Catheter, IV Transfers SCALE: Activities may be completed with or without assistive devices. 4-Jiftvftfdi-svbtcor completes the activity by him/herself with no assistance from a helper. 5-Set-up or Clean-up Assistance-helper sets up or cleans up; patient completes activity. [place] assists only prior to or following the activity. 4-Supervision or Touching Assistance-helper provides verbal cues and/or t ouching/steadying and/or contact guard assistance as patient completes activity. Assistance may be provided throughout the activity or intermittently. 3-Partial/Moderate Assistance-helper does LESS THAN HALF the effort. [place] lifts, holds or supports trunk or limbs, but provides less than half the effort. 2-Substantial/Maximal Assistance-helper does MORE THAN HALF the effort. [place] lifts or holds trunk or limbs and provides more than half the effort. 4-Nlhgckcuv-lzxupl does ALL the effort. Patient does none of the effort to complete the activity. Or, the assistance of 2 or more helpers is required for the patient to complete the activity. If activity was not attempted, code reason: 7-Patient Refused. 9-Not Applicable-not attempted and the patient did not perform the activity before the current illness, exacerbation or injury. 10-Not Attempted due to Environmental Limitations-(lack of equipment, weather restraints, etc.). 88-Not Attempted due to Medical Conditions or Safety Concerns. Roll Left & Right (QC): 1 (x 3) Exercises Supine Ex: Ankle pumps, Heel Slides, Straight leg raise, Hip abd/add Supine Reps: 12 (PROM) Assessment Patient unable to follow simple direction. Patient continued to not open his eyes and requires dependent assist to cleanse and change due to incontinent BM. Patient does get agitated and grabs/punches at staff. PT Shelter Goals Time Buyer Goals PT Shelter Goals Time Frame: Nov 23, 2022 Roll Left & Right (QC): 3 Sit to Lying (QC): 3 Lying-Sitting on Side/Bed(QC): 3 Sit to Stand (QC): 3 Chair/Wqk-au-Xmnar Xfer(QC): 3 PT Plan Treatment/Plan Treatment Plan: Modify Plan, see comments Treatment Plan: Bed Mobility, Education, Functional Activity Batool, Functional Strength, Gait, Safety, Therapeutic Exercise, Transfers PT to decrease frequency to 5/wk due to patient's inability to follow simple direction. Treatment Duration: Nov 23, 2022 Frequency: 5 times per week Estimated Hrs Per Day: .25 hour per day Patient and/or Family Agrees t: Yes Time Time In: 735 Time Out: 759 DATE: Nov 18, 2022 Total Billed Treatment Time: 24 Total Billed Treatment 1 visit FA x 2 24 min MARY PANTOJA PT Nov 18, 2022 09:22
[2022-11-18] MEDS: COLLAGENASE 30 GM (SANTYL) TUBE TP SCH (09:45)
--- NOTE | 2022-11-18 10:14 | Diagnostic Imaging Report ---
INDICATION: Hypoxia. COMPARISON: 11/11/2022. FINDINGS: Left lower lobe consolidation has developed obscuring from visualization the left diaphragm. There is not a substantial degree of volume loss and, while some of this may be atelectasis, pneumonia is suspected radiographically. Less consolidating more patchy perihilar infiltrates are also present. The heart size is within normal limits. No overt vascular congestion. Haziness of the costophrenic angle on the left is likely owing to a small amount of left pleural fluid. IMPRESSION: Suspicion for left lower lobe and perihilar pneumonia with a small left effusion. Dictated by: Dictated on workstation # [id number]
[2022-11-18] MEDS: dilTIAZem DRIP PRE-MIX 125 ML IV SCH (10:32)
[2022-11-18] MEDS: hydrALAZINE (APESOLINE) 20 MG/ML VIAL IV PRN (11:38)
--- NOTE | 2022-11-18 12:19 | Tele-ICU Progress Note ---
Subjective Date Seen by a Provider: Nov 18, 2022 Time Seen by a Provider: 12:19 Subjective/Events-last exam (Tele-ICU Physician , Progress Note ) Service provided via interactive audio and video telecommunications E-CARE system to a patient admitted to ICU bed in [facility]. Patient is seen today due to persistent need of ICU care Available chart/ vitals / labs / Images reviewed Video assessment done using teleICU camera, rest of exam as per RN Discussed with RN Events overnight : Afebrile hemodynamically stable Respiratory - I/O = neg Drips: Pressors- ON OFF - saji Consultants: Hospital course: (11/10) 77/M- Unresponsive home 2 hrs, EMS shock enroute, Intubated, Sbrady. Non verbal baseline dementia/cva. (11/11) afib rvr --- dnr--levo and precedex, remains vented 11/12-AC 16 450 35% + 5 11/14- increased secretions ETT , 35 % , OFF pressors 11/15 EXTUBATED , HTN - as per Dr Acosta's discussion with and son - OK to reintubate if failed , trach and LTAC are acceptable A/P ACUTE HYPOXIC RESPIRATORY FAILURE DUE TO PNEUMONIA AND SEPSIS. ( CTCHEST 11/13 - no PE ) - INtubated 11/10- 11/15 EXTUBATED ( as per Dr Acosta's discussion with and son - OK to reintubate if failed , trach and LTAC are acceptable - on 3l , good cough, - cont nebs prn , .GRAM POSITIVE SEPTIC SHOCK ( PNA and wounds ) -STAPG AUREUS PNEUMONIA PRESENT ON ADMISSION - FINISHED abx ( NEG covif flu) KARSTEN -resolved - STOP IVF AFIB WITH RVR -amio gtt 11/11 -->OFF , cardizem gtt of 11/13 , on dig IV - AC with lovenox 80 bid -> 40 on 11/14 ( as per cards note - not on anticoagulation secondary to his frequent falls AMS DUE TO BASE LINE DEMENTIA AND METABOLIC ENCEPHALOPATHY - at baseline Anemia - stable , probably delutional Nutrition - needs eval swallow with suspected aspiration HTN - Lines : R PICC 11/11 , r a line , (Central Line Necessity Reviewed) Adams: + OG: Nutrition: swallow eval Analgesia: Anxiety/ delirium VTE Prophylaxis: shorty 40 bid Stress Ulcer Prophylaxis: na Plans in collaboration with bedside consultants and IM MDs. Discussed with RN to reach out if any questions or concerns A total of 22 minutes of critical care time was devoted to this patient today, required to treat and/or prevent further deterioration of critical care condition ( as above ) . Sepsis Event Evaluation Height, Weight, BMI Height: '" Weight: lbs. oz. kg; 28.53 BMI Method: Focused Exam Time of Focused Exam: 02:30 Exam Exam Patient acknowledged, consented, and participated in this virtual visit which was conducted using real time audio/video Vital Signs Date Time Temp Pulse Resp B/P (MAP) Pulse Ox O2 Delivery O2 Flow Rate FiO2 11/18/22 12:00 37.2 11/18/22 11:56 94 Nasal Cannula 1.00 11/18/22 11:00 80 15 200/105 (136) 95 Nasal Cannula 3.00 11/18/22 10:00 87 14 188/101 (130) 95 Nasal Cannula 3.00 11/18/22 09:00 85 10 198/105 (136) 95 Nasal Cannula 3.00 11/18/22 08:00 75 13 180/102 (128) 94 Nasal Cannula 3.00 11/18/22 08:00 94 Nasal Cannula 1.00 11/18/22 07:12 87 11/18/22 07:00 76 19 163/86 (111) 93 Nasal Cannula 3.00 11/18/22 06:00 80 16 182/90 (120) 90 Nasal Cannula 3.00 11/18/22 05:00 90 19 173/87 (129) 94 Nasal Cannula 1.00 11/18/22 04:00 90 20 163/86 (123) 93 Nasal Cannula 1.00 11/18/22 04:00 94 Nasal Cannula 1.00 11/18/22 03:00 86 17 172/78 (115) 93 Nasal Cannula 1.00 11/18/22 02:47 78 16 92 Nasal Cannula 1.00 11/18/22 02:47 93 Nasal Cannula 1.00 11/18/22 02:46 89 Room Air 0.00 11/18/22 02:00 90 19 165/79 (115) 90 Room Air 11/18/22 01:00 95 11 149/112 (114) 89 Room Air 11/18/22 01:00 92 11/18/22 00:00 87 18 161/76 (112) 90 Room Air 11/17/22 23:59 91 Room Air 11/17/22 23:00 92 20 176/78 (112) 92 Room Air 11/17/22 22:30 93 Room Air 0.00 11/17/22 22:00 84 22 142/99 (112) 92 Room Air 11/17/22 21:00 89 19 170/84 (109) 92 Room Air 11/17/22 20:00 96 19 166/85 (109) 92 Room Air 11/17/22 20:00 93 Room Air 11/17/22 19:57 90 19 93 Room Air 11/17/22 19:54 94 Room Air 0.00 11/17/22 19:48 100 High Flow N/C 3.00 11/17/22 19:00 107 12 157/119 (131) 93 Nasal Cannula 3.00 11/17/22 19:00 107 11/17/22 18:00 94 11 175/93 (120) 97 Nasal Cannula 3.00 11/17/22 17:00 91 13 168/81 (110) 96 Nasal Cannula 3.00 11/17/22 16:19 36.7 11/17/22 16:00 96 14 166/84 (111) 96 Nasal Cannula 3.00 11/17/22 15:49 36.7 11/17/22 15:26 95 Nasal Cannula 3.00 11/17/22 15:00 89 17 149/91 (110) 97 Nasal Cannula 3.00 11/17/22 14:00 87 11 166/93 (117) 96 Nasal Cannula 3.00 11/17/22 13:00 95 12 162/67 (98) 93 Nasal Cannula 3.00 11/17/22 12:52 108 I & O 11/18/22 07:00 Intake Total 500 ml Output Total 1500 ml Balance -1000 ml Height & Weight Height: '" Weight: lbs. oz. kg; 28.53 BMI Method: General Appearance: No Apparent Distress, Chronically ill HEENT: PERRL/EOMI Neck: Normal Inspection, Supple Respiratory: Lungs Clear, No Accessory Muscle Use, Other (on 3lpm) Cardiovascular: Irregularly Irregular, Tachycardia Capillary Refill: Greater Than 3 Seconds Extremity: No Pedal Edema Neurologic/Psychiatric: Alert, Disoriented Skin: Cool, Pallor, Other Results Lab Laboratory Tests 11/17/22 04:35 11/18/22 05:44 Assessment/Plan Assessment/Plan 1 CRISSY MOORE MD Nov 18, 2022 12:19
--- NOTE | 2022-11-18 12:43 | Speech Therapy Progress Note ---
Therapy Progress Note Speech pathology attempted the clinical bedside swallowing evaluation at 1155 on this date. The patient was positioned upright in bed for safe swallowing. The clinician placed the room's lights on and gently provided oral care and a warm wash rag for the patient's face in attempts to improve alertness. Regardless of maximum clinician verbal and tactile cueing, the patient remained with eyes closed. A straw was brought to the patient's lips to assess for a response to tactile, involuntary response. The patient did not make attempts to draw material from the straw. At this time, the patient does not display an appropriate level of alertness for participation in the assessment. The clinician will continue re-attempts as the patient is alert and schedule allows. Thank you. GENI PINEDO Nov 18, 2022 12:43
--- NOTE | 2022-11-18 13:30 | Occupational Therapy Eval ---
OT Evaluation-General/PLF Medical Diagnosis Admission Date Nov 10, 2022 at 02:45 Medical Diagnosis: septic shock, pnuemonia Onset Date: Nov 10, 2022 Therapy Diagnosis Therapy Diagnosis: confusion, weakness Precautions Precautions/Isolations: Fall Prevention, Standard Precautions Weight Bear Status Weight Bearing Restriction: Weight Bearing/Tolerated Referral Physician: Dave Referral Reason: Evaluation/Treatment Medical History Pertinent Medical History: DM, Dementia, HTN Additional Medical History sacral wound Current History Pelon Mccarty is a 77 year old male with PMH HTN, T2DM, BPH, dementia, intracranial hemorrhage, sacral ulcer, who presented with altered mental status. His says that he was not acting like himself. He was reportedly "gurgling". She says he was coughing up phlegm. She says he usually talks and is able to recognize his family. She says he walks with help. He has a "lift chair" at home. He has a sacral wound for which he is supposed to start seeing wound care in [place]. Social History Current Living Status: Spouse ADL-Prior Level of Function SCALE: Activities may be completed with or without assistive devices. 9-Zwviagoidj-dvkscvm completes the activity by him/herself with no assistance from a helper. 5-Set-up or Clean-up Assistance-helper sets up or cleans up; patient completes activity. [place] assists only prior to or following the activity. 4-Supervision or Touching Assistance-helper provides verbal cues and/or touching/steadying and/or contact guard assistance as patient completes activity. Assistance may be provided throughout the activity or intermittently. 3-Partial/Moderate Assistance-helper does LESS THAN HALF the effort. [place] lifts, holds or supports trunk or limbs, but provides less than half the effort. 2-Substantial/Maximal Assistance-helper does MORE THAN HALF the effort. [place] lifts or holds trunk or limbs and provides more than half the effort. 8-Jbnnbztqn-szzfdc does ALL the effort. Patient does none of the effort to complete the activity. Or, the assistance of 2 or more helpers is required for the patient to complete the activity. If activity was not attempted, code reason: 7-Patient Refused. 9-Not Applicable-not attempted and the patient did not perform the activity before the current illness, exacerbation or injury. 10-Not Attempted due to Environmental Limitations-(lack of equipment, weather restraints, etc.). 88-Not Attempted due to Medical Conditions or Safety Concerns. Self Care: Needed Some Help Functional Cognition: Needed Some Help Drive Self: No OT Current Status Subjective Does not open eyes, tactile stimuli applied and Patient responds, leave me alone, OT pursued a bit further and patient became agitated w/ evaluation Mental Status/Objective Patient Orientation: Confused Current Upper Extremity ROM unable to assess, does not follow commands, OT attempted to perform AROM and a rouse patient, patient stiffened and became agitated. ADL-Treatment ADL-Current Patient sounds gurgled when communicates, ST screen d/t aspiration risk Eating (QC): 88 Oral Hygiene (QC): 88 Shower/Bathe Self (QC): 88 Upper Body Dressing (QC): 88 (increases agitation) Lower Body Dressing (QC): 1 (2 person) On/Off Footwear (QC): 9 Toileting Hygiene (QC): 1 (2 person) Education OT Patient Education: Correct positioning, Disease process, Exercise program, Progress toward Goal/Update tx plan, Purpose of tx/functional activities, Reviewed precautions, Rehab process, Safety issues Teaching Recipient: Patient Teaching Methods: Demonstration, Discussion Response to Teaching: Unable to Return Demonstration, Unable to Comprehend, Reinforcement Needed OT Production Cloth Cutter Goals Production Cloth Cutter Goals Eating (QC): 4 Oral Hygiene (QC): 4 Toileting Hygiene (QC): 4 Shower/Bathe Self (QC): 3 Upper Body Dressing (QC): 4 Lower Body Dressing (QC): 3 On/Off Footwear (QC): 3 1=Demonstrate adherence to instructed precautions during ADL tasks. 2=Patient will verbalize/demonstrate understanding of assistive devices/modifications for ADL. 3=Patient will improve strength/tolerance for activity to enable patient to perform ADL's. OT Education/Plan Problem List/Assessment Assessment: Decreased Activ Tolerance, Decreased Safety Aware, Dependent Transfers, Impaired Bed Mobility, Impaired Cognition, Impaired Coordination, Impaired Funct Balance, Impaired Self-Care Skills Discharge Recommendations Plan/Recommendations: Continue POC Therapy Discharge Recommendati: Post Acute OT Treatment Plan/Plan of Care Treatment,Training & Education: Yes Patient would benefit from OT for education, treatment and training to promote independence in ADL's, mobility, safety and/or upper extremity function for ADL's. Plan of Care: ADL Retraining, Caregiver Training, Cognitive Retraining, Concurrent Therapy, Functional Mobility, Group Exercise/Act as Ind, UE Funct Exercise/Act, UE Neuromus Re-Ed/Coord Treatment Duration: Nov 30, 2022 Frequency: 3 times per week (3-5 times/week) Estimated Hrs Per Day: .25 hour per day Rehab Potential: Good Time Start Time: 08:12 Stop Time: 08:35 DATE: Nov 18, 2022 Total Time Billed (hr/min): 23 Billed Treatment Time 1 visit, [facility] 1 23 minutes KIRSTIN PEREIRA OT Nov 18, 2022 13:30
[2022-11-18] MEDS: TAMSULOSIN 0.4 MG (FLOMAX) CAP PO SCH (18:00)
[2022-11-18] MEDS: ENOXAPARIN 40 MG/0.4 ML (LOVENOX) SYR SC SCH (18:00)
--- NOTE | 2022-11-18 19:11 | Progress Note - Hospitalist ---
Subjective HPI/CC On Admission Date Seen by Provider: Nov 18, 2022 Time Seen by Provider: 10:10 Pelon Mccarty is a 77 year old male with PMH HTN, T2DM, BPH, dementia, intracranial hemorrhage, sacral ulcer, who presented with altered mental status. His says that he was not acting like himself. He was reportedly "gurgling". She says he was coughing up phlegm. She says he usually talks and is able to recognize his family. She says he walks with help. He has a "lift chair" at home. He has a sacral wound for which he is supposed to start seeing wound care in [place]. She says they bathe him every day. She appeared to be a bit defensive saying that "these things could happen in the hospital or care home too". I let her know that it sounds like she has been doing a great job of taking care of him. She says they have been together for 57 years. I educated her on the natural progression of dementia. We discussed poor prognostic factors including debility, sacral ulcers, and aspiration. We discussed that based on his prior status, he will likely not be able to return home and she understood but remains hopeful he will recover. Subjective/Events-last exam He is sleeping. He does not awaken to verbal cues. He does awaken to physical cues. He is agitated and does not answer questions. Focused Exam Time of Focused Exam: 02:30 Objective Exam Vital Signs Vital Signs Date Time Temp Pulse Resp B/P (MAP) Pulse Ox O2 Delivery O2 Flow Rate FiO2 11/18/22 18:00 85 10 170/11 (63) 98 Nasal Cannula 3.00 11/18/22 16:19 36.8 11/17/22 02:24 97 Capillary Refill : Greater Than 3 Seconds General Appearance: No Apparent Distress, Chronically ill Respiratory: No Respiratory Distress, Decreased Breath Sounds Cardiovascular: Regular Rate, Rhythm, No Murmur Gastrointestinal: Normal Bowel Sounds, Soft Extremity: Normal Inspection, Pedal Edema Neurologic/Psychiatric: Alert, Disoriented, Other (agitated) Skin: Normal Color, Warm/Dry Results/Procedures Lab Laboratory Tests 11/18/22 05:44 Patient resulted labs reviewed. Imaging: Reviewed Imaging Report Assessment/Plan Assessment and Plan Assess & Plan/Chief Complaint Likely aspiration pneumonia Acute respiratory failure with hypoxia Afib with RVR Extubated 2/10 s/p Unasyn Speech consulted, unable to perform evaluation today Likely type II NSTEMI due to sepsis, Cardiology following Elevated d-dimer, CTA chest negative along with negative doppler of BLE TeleICU following On digoxin and metoprolol for rate control- management per Cardiology Only on ppx Lovenox now due to history of ICH Dementia Sacral ulcer Poor prognosis Home meds continued Wound care consulted, appreciate recs Palliative care following Remains DNR (no CPR) but ok with reintubation if needed History of intracranial hemorrhage Clinically significant PT/OT Debility Social work following Likely discharge to SNF DVT ppx: Lovenox Septic shock, resolved Endotracheally intubated, resolved Lactic acidosis, resolved KARSTEN, resolved NSTEMI, resolved Critical Care Ventilator Management Diagnosis/Problems Diagnosis/Problems (1) Septic shock Status: Resolved Resolution Date/Time: 11/18/22 @ 19:16 (2) Acute respiratory failure Status: Acute Qualifiers: Respiratory failure complication: hypoxia Qualified Codes: J96.01 - Acute respiratory failure with hypoxia (3) PNA (pneumonia) Status: Resolved Resolution Date/Time: 11/18/22 @ 19:16 (4) Aspiration pneumonia Status: Acute (5) Lactic acidosis Status: Resolved Resolution Date/Time: 11/18/22 @ 19:16 (6) KARSTEN (acute kidney injury) Status: Resolved Resolution Date/Time: 11/18/22 @ 19:16 (7) NSTEMI (non-ST elevation myocardial infarction) Status: Resolved Resolution Date/Time: 11/18/22 @ 19:16 (8) Poor prognosis Status: Acute (9) Dementia with behavioral disturbance Status: Acute (10) Advancing dementia Status: Acute (11) Sacral decubitus ulcer Status: Acute Qualifiers: Pressure injury stage: unstageable Qualified Codes: L89.150 - Pressure ulcer of sacral region, unstageable (12) History of intracranial hemorrhage Status: Chronic (13) Elevated d-dimer Status: Acute (14) Poor mobility Status: Acute DEMAR MCCLAIN MD Nov 18, 2022 19:11
[2022-11-18] MEDS: MIRTAZAPINE 15 MG (REMERON) TAB PO SCH (20:09)
[2022-11-19] MEDS: fentaNYL DRIP PRE-MIX 250 ML IV SCH (01:23)
[2022-11-19] MEDS: hydrALAZINE (APESOLINE) 20 MG/ML VIAL IV PRN (02:37)
[2022-11-19 02:53] LABS: BASOPHILS % (AUTO) 0 % (0-10); EOSINOPHILS # (AUTO) 0.3 10^3/uL (0.0-0.3); EOSINOPHILS % (AUTO) 3 % (0-10); HEMATOCRIT 30 % (40-54); HEMOGLOBIN 9.3 g/dL (13.3-17.7); LYMPHOCYTES # (AUTO) 1.6 10^3/uL (1.0-4.0); LYMPHOCYTES % (AUTO) 15 % (12-44); MEAN CORPUSCULAR HEMOGLOBIN 27 pg (25-34); MEAN CORPUSCULAR HGB CONC 31 g/dL (32-36); MEAN CORPUSCULAR VOLUME 87 fL (80-99); MEAN PLATELET VOLUME 8.5 fL (9.0-12.2); MONOCYTES # (AUTO) 0.7 10^3/uL (0.0-1.0); MONOCYTES % (AUTO) 7 % (0-12); NEUTROPHILS # (AUTO) 7.6 10^3/uL (1.8-7.8); NEUTROPHILS % (AUTO) 71 % (42-75); PLATELET COUNT 186 10^3/uL (130-400); WHITE BLOOD COUNT 10.7 10^3/uL (4.3-11.0)
[2022-11-19 03:15] LABS: ALBUMIN 2.5 GM/DL (3.2-4.5); POTASSIUM 4.1 MMOL/L (3.6-5.0)
[2022-11-19 03:16] LABS: CALCIUM 8.5 MG/DL (8.5-10.1)
[2022-11-19 03:18] LABS: TOTAL PROTEIN 5.5 GM/DL (6.4-8.2)
[2022-11-19 03:19] LABS: BILIRUBIN,TOTAL 0.6 MG/DL (0.1-1.0)
[2022-11-19 03:21] LABS: CREATININE SERUM 1.09 MG/DL (0.60-1.30); PHOSPHORUS 2.5 MG/DL (2.3-4.7)
[2022-11-19 03:24] LABS: MAGNESIUM 2.1 MG/DL (1.6-2.4)
[2022-11-19] MEDS: POTASSIUM CL 10MEQ/50ML IVPB 50 ML IV SCH (03:27)
[2022-11-19] MEDS: KCL 20 MEQ TAB (K-DUR) PO SCH (03:28)
[2022-11-19] MEDS: inSUlin ASPART (NovoLOG) 1 UNIT/0.01 ML (CHARGE PER UNIT) SC SCH ×4 (03:28→23:50)
[2022-11-19] MEDS: MAGNESIUM 1 GM/100 ML IVPB 100 ML IV SCH (03:28)
--- NOTE | 2022-11-19 08:52 | Physical Therapy Daily Note ---
PT Daily Note-Current Subjective Patient is in bed. Does not open his eyes. Pain Section J - Health Conditions 1. Rarely or not at all 2. Occasionally 3. Frequently 4. Almost constantly 8. Unable to answer Pain Effect on Sleep: 8 Pain Interference with Therapy: 8 Pain Interference w/Day-to-Day: 8 Mental Status Patient Orientation: Confused Attachments: Oxygen, Adams Catheter, IV Transfers SCALE: Activities may be completed with or without assistive devices. 4-Asagdahtbz-adbyfrk completes the activity by him/herself with no assistance from a helper. 5-Set-up or Clean-up Assistance-helper sets up or cleans up; patient completes activity. [place] assists only prior to or following the activity. 4-Supervision or Touching Assistance-helper provides verbal cues and/or touching/steadying and/or contact guard assistance as patient completes activity. Assistance may be provided throughout the activity or intermittently. 3-Partial/Moderate Assistance-helper does LESS THAN HALF the effort. [place] lifts, holds or supports trunk or limbs, but provides less than half the effort. 2-Substantial/Maximal Assistance-helper does MORE THAN HALF the effort. [place] lifts or holds trunk or limbs and provides more than half the effort. 1-Ignzacjpa-wcwtpc does ALL the effort. Patient does none of the effort to complete the activity. Or, the assistance of 2 or more helpers is required for the patient to complete the activity. If activity was not attempted, code reason: 7-Patient Refused. 9-Not Applicable-not attempted and the patient did not perform the activity before the current illness, exacerbation or injury. 10-Not Attempted due to Environmental Limitations-(lack of equipment, weather restraints, etc.). 88-Not Attempted due to Medical Conditions or Safety Concerns. Exercises Supine Ex: Ankle pumps, Heel Slides, Straight leg raise, Hip abd/add Supine Reps: 15 (PROM bilaterally) Assessment Due to patient's inability to stay awake, patient is not safe for OOB activity. Patient will require a [place] lift for safe transfers when he is more alert and able to actively participate with skilled therapy. PT Senior Living Goals [place] Former Goals PT [place] Former Goals Time Frame: Nov 23, 2022 Roll Left & Right (QC): 3 Sit to Lying (QC): 3 Lying-Sitting on Side/Bed(QC): 3 Sit to Stand (QC): 3 Chair/Scu-tp-Snujs Xfer(QC): 3 PT Plan Treatment/Plan Treatment Plan: Continue Plan of Care Treatment Plan: Bed Mobility, Education, Functional Activity Batool, Functional Strength, Gait, Safety, Therapeutic Exercise, Transfers Treatment Duration: Nov 23, 2022 Frequency: 5 times per week Estimated Hrs Per Day: .25 hour per day Patient and/or Family Agrees t: Yes Time Time In: 725 Time Out: 735 DATE: Nov 19, 2022 Total Billed Treatment Time: 10 Total Billed Treatment 1 visit EX 10 min MARY PANTOJA PT Nov 19, 2022 08:52
[2022-11-19] MEDS ORDERED: FUROSEMIDE 20 MG (LASIX) TAB PO SCH (09:00)
[2022-11-19] MEDS ORDERED: MEMANTINE 10 MG (NAMENDA) TABLET PO SCH (09:00)
[2022-11-19] MEDS ORDERED: OLANZapine 5 MG ODT (ZyPREXA ZYDIS) PO SCH (09:00)
[2022-11-19] MEDS ORDERED: amLODIPine 5 MG (NORVASC) TAB PO SCH (09:00)
[2022-11-19] MEDS ORDERED: ATENOLOL 25 MG (TENORMIN) TAB PO SCH (09:00)
[2022-11-19] MEDS: PANTOPRAZOLE 40 MG (PROTONIX) VIAL IV SCH (09:14)
[2022-11-19] MEDS: DIGOXIN 0.25 MG/ML (LANOXIN) 2 ML AMP IV SCH (09:14)
[2022-11-19] MEDS: COLLAGENASE 30 GM (SANTYL) TUBE TP SCH (09:15)
[2022-11-19] MEDS: MEMANTINE 10 MG (NAMENDA) TABLET PO SCH ×2 (09:15→19:51)
[2022-11-19] MEDS: OLANZapine 5 MG ODT (ZyPREXA ZYDIS) PO SCH ×2 (09:15→19:53)
[2022-11-19] MEDS: GABAPENTIN 100 MG (NEURONTIN) CAP PO SCH ×2 (09:15→19:52)
--- NOTE | 2022-11-19 11:31 | Speech Therapy Progress Note ---
Therapy Progress Note Speech pathology made a second attempt to complete the clinical bedside swallowing evaluation at 1115. The patient was resting in bed, eyes closed, upon entrance to his room. The patient returned a verbal greeting from the clinician but remained with eyes closed. When asked to open his eyes, the patient stated, "Yes, I can open my eyes." but remained with eyes closed. The patient was positioned upright in bed and the lights were turned on in attempts to increase alertness. Regardless, the patient did not participate to tactile cues on the lips with the teaspoon, cup edge, or straw. Per patient, "I'm just too sick for this. I need things to simmer down here." Additionally attempts for oral intake were made by the clinician, however, the patient physically waved arms to move utensils from oral area. ST to reattempt as the patient is able to functionally participate appropriately. GENI PINEDO Nov 19, 2022 11:31
--- NOTE | 2022-11-19 11:59 | Wound Care Assessment ---
Wound Care Assessment Date Seen by Provider: Nov 19, 2022 Time Seen by Provider: 11:46 Chief Complaint Sacral ulcer HPI This 77 year old gentleman presented to our facility with severe sepsis. He is currently intubated with need for triple pressor support (levophed, Dopamine and Epinephrine). He is also struggling with atrial fibrillation with RVR. He has anemia, PEM, DM2 and CKD which will also complicate his healing course. Pelon has elevations in CRP and ESR. He was previously at home and had plans to initiate care with Dr. Rice at [facility] for wound care (prior to hospitalization). He is currently on Vancomycin, Flagyl and cefepime. Pelon's ulcer is unstageable due to heavy slough/eschar. There is a foul odor and his wound bed does feel spongey. I would not be surprised if Pelon's ulcer is quite deep or even with underlying osteomyelitis. He is not currently a candidate for surgical debridement (due to his globally unstable medical state). I do plan to order santyl with vashe dressings to be changed once daily with adequate off loading. Pelon is seriously ill and his family is in discussions with his primary team about palliative care in light of this fact. We will continue to support as indicated throughout his stay at our facility. Changes as of 11/19 - Pt is now off pressors and vent, improving overall. GCS 13 - pt responds to verbal commands but remains confused. Unable to obtain ROS wit h current cognitive status. Significant coughing when laying flat (concern for aspiration). He remains medically very frail. Myoclonic jerking noted as well. mentions plan for hospice upon discharge. This would be ideal considering his significant medical ailments, severe dementia, and quality of life. Past Medical History: Admits Diabetes Type II, Admits Heart Disease Smoking Status: Unknown if Ever Smoked Exam Vital Signs Date Time Temp Pulse Resp B/P (MAP) Pulse Ox O2 Delivery O2 Flow Rate FiO2 11/19/22 11:26 36.9 11/19/22 11:00 79 12 160/87 (111) 98 Room Air 11/19/22 10:22 2.00 11/17/22 02:24 97 Capillary Refill : Greater Than 3 Seconds General Appearance: cachetic HEENT: pale conjunctivae (R), pale conjunctivae (L) Neck: non-tender Cardiovascular: normal peripheral pulses Respiratory: no respiratory distress, no accessory muscle use Gastrointestinal: non tender, no organomegaly Extremities: no pedal edema, normal capillary refill Neurologic/Psychiatric: depressed affect, disoriented x 3 Skin: warm/dry, pallor Skin Problem Location: other (Sacral Wound assessment: [id number]. The epithelialization is none. There is no tunneling or undermining. Drainage is large and serous. Granulation is none. Necrotic is large and slough/eschar. The margins are flat. Wound bed is spongey with associated foul odor) Results Laboratory Tests 11/18/22 18:04: Glucometer 147H 11/18/22 23:41: Glucometer 162H 11/19/22 02:45: White Blood Count 10.7, Red Blood Count 3.43L, Hemoglobin 9.3L, Hematocrit 30L, Mean Corpuscular Volume 87, Mean Corpuscular Hemoglobin 27, Mean Corpuscular Hemoglobin Concent 31L, Red Cell Distribution Width 15.8H, Platelet Count 186, Mean Platelet Volume 8.5L, Immature Granulocyte % (Auto) 4, Neutrophils (%) (Auto) 71, Lymphocytes (%) (Auto) 15, Monocytes (%) (Auto) 7, Eosinophils (%) (Auto) 3, Basophils (%) (Auto) 0, Neutrophils # (Auto) 7.6, Lymphocytes # (Auto) 1.6, Monocytes # (Auto) 0.7, Eosinophils # (Auto) 0.3, Basophils # (Auto) 0.0, Immature Granulocyte # (Auto) 0.4H, Sodium Level 140, Potassium Level 4.1, Chloride Level 105, Carbon Dioxide Level 27, Anion Gap 8, Blood Urea Nitrogen 17, Creatinine 1.09, Estimat Glomerular Filtration Rate 70, BUN/Creatinine Ratio 16, Glucose Level 136H, Calcium Level 8.5, Corrected Calcium 9.7, Phosphorus Level 2.5, Magnesium Level 2.1, Total Bilirubin 0.6, Aspartate Amino Transf (AST/SGOT) 28, Alanine Aminotransferase (ALT/SGPT) 19, Alkaline Phosphatase 84, Total Protein 5.5L, Albumin 2.5L 11/19/22 11:17: Glucometer 163H Microbiology 11/12/22 Blood Culture - Final, Complete No growth 11/10/22 MRSA Screen - Final, Complete MRSA not isolated 11/10/22 Gram Stain - Final, Complete 11/10/22 Wound Culture - Final, Complete Mixed Bacterial Guera With Staphylococcus aureus YEAST 11/10/22 Urine Culture - Final, Complete NO GROWTH Assessment/Plan/Dx Assessment: 1. Unstageable pressure ulcer sacrum 2. DM2 3. Anemia of unknown etiology 4. CKD 3 5. PEM 6. Septic shock with severe hypotension and atrial fibrillation with RVR - Resolving 7. Severe dementia Plan: 1. Cleanse daily with Vashe. Apply thick layer santyl to woundbed. Cover with vashe dampened gauze and secure with allevyn BFD. Change daily and prn for soiling. If d/c home with hospice care, will defer palliative wound care options to their capable hands. 2. Defer to primary team 3. Defer to primary team 4. Defer to primary team 5. Defer to primary team 6. Defer to primary team 7. Defer to primary team Supervisory-Addendum Brief Verification & Attestation Participated in pt care: history, MDM, physical Personally performed: exam, history, MDM, supervision of care Care discussed with: Medical Student Procedures: n/a MD ELISE Putnam DAVID Nov 19, 2022 11:59 PATRICIA LOERA MD Nov 19, 2022 15:11
[2022-11-19] MEDS ORDERED: VASOPRESSIN INJECTION 20 UNIT in NS (IVPB) 100 ML IV SCH (12:45)
--- NOTE | 2022-11-19 12:47 | Tele-ICU Progress Note ---
Subjective Date Seen by a Provider: Nov 19, 2022 Time Seen by a Provider: 10:17 Subjective/Events-last exam (Tele-ICU Physician , Progress Note ) Service provided via interactive audio and video telecommunications E-CARE system to a patient admitted to ICU bed in [facility]. Patient is seen today due to persistent need of ICU care Available chart/ vitals / labs / Images reviewed Video assessment done using teleICU camera, rest of exam as per RN Discussed with RN Events overnight : Afebrile hemodynamically stable Respiratory - I/O = neg Drips: Pressors- ON OFF - saji Consultants: Hospital course: (11/10) 77/M- Unresponsive home 2 hrs, EMS shock enroute, Intubated, Sbrady. Non verbal baseline dementia/cva. (11/11) afib rvr --- dnr--levo and precedex, remains vented 11/12-AC 16 450 35% + 5 11/14- increased secretions ETT , 35 % , OFF pressors 11/15 EXTUBATED , HTN - as per Dr Acosta's discussion with and son - OK to reintubate if failed , trach and LTAC are acceptable A/P ACUTE HYPOXIC RESPIRATORY FAILURE DUE TO PNEUMONIA AND SEPSIS. ( CTCHEST 11/13 - no PE ) - INtubated 11/10- 11/15 EXTUBATED ( as per Dr Acosta's discussion with and son - OK to reintubate if failed , trach and LTAC are acceptable - on 3l , good cough, - cont nebs prn , .GRAM POSITIVE SEPTIC SHOCK ( PNA and wounds ) -STAPG AUREUS PNEUMONIA PRESENT ON ADMISSION - FINISHED abx ( NEG covif flu) KARSTEN -resolved - STOP IVF AFIB WITH RVR -amio gtt 11/11 -->OFF , cardizem gtt of 11/13 , on dig IV - AC with lovenox 80 bid -> 40 on 11/14 ( as per cards note - not on anticoagulation secondary to his frequent falls AMS DUE TO BASE LINE DEMENTIA AND METABOLIC ENCEPHALOPATHY - at baseline Anemia - stable , probably delutional Nutrition - needs eval swallow with suspected aspiration HTN - Lines : R PICC 11/11 , r a line , (Central Line Necessity Reviewed) Adams: + OG: Nutrition: swallow eval Analgesia: Anxiety/ delirium VTE Prophylaxis: shorty 40 bid Stress Ulcer Prophylaxis: na Plans in collaboration with bedside consultants and IM MDs. Discussed with RN to reach out if any questions or concerns A total of 15 minutes of critical care time was devoted to this patient today, required to treat and/or prevent further deterioration of critical care condition ( as above ) . Sepsis Event Evaluation Height, Weight, BMI Height: '" Weight: lbs. oz. kg; 28.34 BMI Method: Focused Exam Time of Focused Exam: 02:30 Exam Exam Patient acknowledged, consented, and participated in this virtual visit which was conducted using real time audio/video Vital Signs Date Time Temp Pulse Resp B/P (MAP) Pulse Ox O2 Delivery O2 Flow Rate FiO2 11/19/22 11:26 36.9 11/19/22 11:00 79 12 160/87 (111) 98 Room Air 11/19/22 10:22 85 24 157/92 (113) 96 Nasal Cannula 2.00 11/19/22 10:06 96 Room Air 0.00 11/19/22 10:05 99 Nasal Cannula 2.00 11/19/22 10:00 Room Air 11/19/22 10:00 89 12 164/82 (109) 98 Room Air 11/19/22 09:00 85 24 157/92 (113) 96 Nasal Cannula 2.00 11/19/22 08:00 85 37 159/76 (103) 96 Nasal Cannula 2.00 11/19/22 08:00 95 High Flow N/C 2.00 11/19/22 07:43 36.8 11/19/22 07:29 80 11/19/22 07:00 79 152/66 (94) 96 Nasal Cannula 2.00 11/19/22 06:00 87 24 135/72 (100) 97 Nasal Cannula 2.00 11/19/22 05:00 90 153/78 (101) 95 Nasal Cannula 2.00 11/19/22 04:00 78 155/83 (107) 96 Nasal Cannula 2.00 11/19/22 04:00 95 High Flow N/C 2.00 11/19/22 03:28 36.9 11/19/22 03:00 84 165/98 (121) 95 Nasal Cannula 2.00 11/19/22 02:00 80 168/92 (116) 95 Nasal Cannula 2.00 11/19/22 01:00 97 11/19/22 01:00 63 164/85 (111) 95 Nasal Cannula 2.00 11/19/22 00:09 95 High Flow N/C 2.00 11/19/22 00:00 85 163/77 (99) 95 Nasal Cannula 2.00 11/18/22 23:28 37.0 11/18/22 23:00 85 161/76 (103) 95 Nasal Cannula 2.00 11/18/22 22:00 75 156/86 (119) 96 Nasal Cannula 2.00 11/18/22 21:00 90 148/93 (122) 97 Nasal Cannula 2.00 11/18/22 20:28 Nasal Cannula 2.00 11/18/22 20:00 89 17 165/78 (86) 98 Nasal Cannula 3.00 11/18/22 20:00 96 High Flow N/C 2.00 11/18/22 20:00 36.8 11/18/22 19:00 80 11/18/22 19:00 80 11 149/99 (111) 97 Nasal Cannula 3.00 11/18/22 18:00 85 10 170/11 (63) 98 Nasal Cannula 3.00 11/18/22 17:00 87 8 167/102 (123) 97 Nasal Cannula 3.00 11/18/22 16:19 36.8 11/18/22 16:00 96 11 164/86 (112) 97 Nasal Cannula 3.00 11/18/22 15:36 94 Nasal Cannula 1.00 11/18/22 15:00 90 16 168/87 (114) 95 Nasal Cannula 3.00 11/18/22 14:00 94 17 164/87 (112) 96 Nasal Cannula 3.00 11/18/22 13:03 96 11/18/22 13:00 90 8 181/86 (117) 96 Nasal Cannula 3.00 I & O 11/19/22 07:00 Intake Total 500 ml Output Total 2600 ml Balance -2100 ml Height & Weight Height: '" Weight: lbs. oz. kg; 28.34 BMI Method: General Appearance: No Apparent Distress, Chronically ill HEENT: PERRL/EOMI Neck: Normal Inspection, Supple Respiratory: No Respiratory Distress, Decreased Breath Sounds Cardiovascular: Regular Rate, Rhythm, No Murmur Capillary Refill: Greater Than 3 Seconds Gastrointestinal: non tender, no organomegaly Extremity: Normal Inspection, Pedal Edema Neurologic/Psychiatric: Alert, Disoriented, Other (agitated) Skin: Normal Color, Warm/Dry Results Lab Laboratory Tests 11/18/22 05:44 11/19/22 02:45 Assessment/Plan Assessment/Plan 1 CRISSY MOORE MD Nov 19, 2022 12:47
[2022-11-19 13:04] VITALS: BP 175/78
--- NOTE | 2022-11-19 14:31 | Occ Therapy Progress Note ---
Therapy Progress Note Patient relocation to room 404, OT is unable to arouse patient from sleep. OT to continue POC of 3-5 x week 11/20/22 KIRSTIN PEREIRA OT Nov 19, 2022 14:31
[2022-11-19 15:11] VITALS: BP 117/62
[2022-11-19] MEDS: TAMSULOSIN 0.4 MG (FLOMAX) CAP PO SCH (16:52)
[2022-11-19] MEDS: ENOXAPARIN 40 MG/0.4 ML (LOVENOX) SYR SC SCH (17:04)
--- NOTE | 2022-11-19 18:24 | Progress Note - Hospitalist ---
Subjective HPI/CC On Admission Date Seen by Provider: Nov 19, 2022 Time Seen by Provider: 09:30 Pelon Mccarty is a 77 year old male with PMH HTN, T2DM, BPH, dementia, intracranial hemorrhage, sacral ulcer, who presented with altered mental status. His says that he was not acting like himself. He was reportedly "gurgling". She says he was coughing up phlegm. She says he usually talks and is able to recognize his family. She says he walks with help. He has a "lift chair" at home. He has a sacral wound for which he is supposed to start seeing wound care in [place]. She says they bathe him every day. She appeared to be a bit defensive saying that "these things could happen in the hospital or retirement too". I let her know that it sounds like she has been doing a great job of taking care of him. She says they have been together for 57 years. I educated her on the natural progression of dementia. We discussed poor prognostic factors including debility, sacral ulcers, and aspiration. We discussed that based on his prior status, he will likely not be able to return home and she understood but remains hopeful he will recover. Subjective/Events-last exam He is awake. He has been eating oatmeal with his nurse. He denies pain. He is oriented to person. Focused Exam Time of Focused Exam: 02:30 Objective Exam Vital Signs Vital Signs Date Time Temp Pulse Resp B/P (MAP) Pulse Ox O2 Delivery O2 Flow Rate FiO2 11/19/22 17:18 88 Room Air 11/19/22 15:11 36.6 64 20 117/62 (80) 11/19/22 10:22 2.00 11/17/22 02:24 97 Capillary Refill : Greater Than 3 Seconds General Appearance: No Apparent Distress, Chronically ill Respiratory: Lungs Clear, No Respiratory Distress Cardiovascular: Regular Rate, Rhythm, No Murmur Gastrointestinal: Normal Bowel Sounds, Soft Extremity: Normal Inspection, Pedal Edema Neurologic/Psychiatric: Alert, Disoriented, Motor Weakness Results/Procedures Lab Laboratory Tests 11/19/22 02:45 Patient resulted labs reviewed. Imaging: Reviewed Imaging Report Assessment/Plan Assessment and Plan Assess & Plan/Chief Complaint Likely aspiration pneumonia Acute respiratory failure with hypoxia Afib with RVR Extubated 11/15 s/p Unasyn Speech consulted, unable to perform evaluation today Likely type II NSTEMI due to sepsis, Cardiology following Elevated d-dimer, CTA chest negative along with negative doppler of BLE On digoxin and metoprolol for rate control- management per Cardiology Only on ppx Lovenox now due to history of ICH Transfer to medical floor Dementia Sacral ulcer Poor prognosis Home meds continued Wound care consulted, appreciate recs Palliative care following Likely discharge home on hospice tomorrow History of intracranial hemorrhage Clinically significant PT/OT Debility Social work following DVT ppx: Lovenox Septic shock, resolved Endotracheally intubated, resolved Lactic acidosis, resolved KARSTEN, resolved NSTEMI, resolved Diagnosis/Problems Diagnosis/Problems (1) Septic shock Status: Resolved Resolution Date/Time: 11/18/22 @ 19:16 (2) Acute respiratory failure Status: Acute Qualifiers: Respiratory failure complication: hypoxia Qualified Codes: J96.01 - Acute respiratory failure with hypoxia (3) PNA (pneumonia) Status: Resolved Resolution Date/Time: 11/18/22 @ 19:16 (4) Aspiration pneumonia Status: Acute (5) Lactic acidosis Status: Resolved Resolution Date/Time: 11/18/22 @ 19:16 (6) KARSTEN (acute kidney injury) Status: Resolved Resolution Date/Time: 11/18/22 @ 19:16 (7) NSTEMI (non-ST elevation myocardial infarction) Status: Resolved Resolution Date/Time: 11/18/22 @ 19:16 (8) Poor prognosis Status: Acute (9) Dementia with behavioral disturbance Status: Acute (10) Advancing dementia Status: Acute (11) Sacral decubitus ulcer Status: Acute Qualifiers: Pressure injury stage: unstageable Qualified Codes: L89.150 - Pressure ulcer of sacral region, unstageable (12) History of intracranial hemorrhage Status: Chronic (13) Elevated d-dimer Status: Acute (14) Poor mobility Status: Acute DEMAR MCCLAIN MD Nov 19, 2022 18:24
[2022-11-19 19:39] VITALS: BP 120/62
[2022-11-19] MEDS: MIRTAZAPINE 15 MG (REMERON) TAB PO SCH (19:53)
[2022-11-19] MEDS ORDERED: MIRTAZAPINE 15 MG (REMERON) TAB PO SCH (21:00)
[2022-11-19] MEDS ORDERED: TAMSULOSIN 0.4 MG (FLOMAX) CAP PO SCH (21:00)
[2022-11-19 23:32] VITALS: BP 122/60
[2022-11-20 03:04] VITALS: BP 125/60
[2022-11-20] MEDS: inSUlin ASPART (NovoLOG) 1 UNIT/0.01 ML (CHARGE PER UNIT) SC SCH (05:09)
[2022-11-20 08:46] VITALS: BP 141/65
--- NOTE | 2022-11-20 08:52 | Occ Therapy Progress Note ---
Therapy Progress Note Attempted therapy session this AM. Patient is not able to vocalize responses, gurgle sounds only, attempt to roll with patient , does not follow commands does not open eyes, communication board notes bed rest, no order found in chart by this OT. Communicated concerns with YOLY and nurse reports discussion of possible hospice and patient has declined since yesterday, OT will follow up with nurse in afternoon KIRSTIN PEREIRA OT Nov 20, 2022 08:52
[2022-11-20] MEDS ORDERED: PANTOPRAZOLE 40 MG (PROTONIX) TAB PO SCH (09:00)
[2022-11-20] MEDS ORDERED: DIGOXIN 0.25 MG (LANOXIN) TAB PO SCH (09:00)
--- NOTE | 2022-11-20 09:41 | Speech Therapy Progress Note ---
Therapy Progress Note Speech pathology has attempted on three subsequent treatment dates to complete the clinical bedside swallowing evaluation. On this date, the patient is sleeping in bed upon entrance to his room. With maximum verbal prompting and gentle tactile cues, the patient does not open his eyes or display participation with the therapist and tasks. The patient is offered multiple consistencies (water, applesauce, pudding, yogurt, juice, ice) and stated, "Not right now. No, I'm not thirsty." The patient did not follow any simple, one step commands with direct modeling requested by the clinician. The patient stated, "My eyes are open," however, his eyes remained shut throughout the attempt. At this time, speech pathology will sign off due to consistent, subsequent attempts without participation or appropriate alertness levels. If the patient does display improved participation, please re-consult speech pathology. GENI PINEDO Nov 20, 2022 09:41
[2022-11-20] MEDS ORDERED: LORA2ORA PO (10:50)
[2022-11-20] MEDS ORDERED: MORP100S7 PO (10:50)
[2022-11-20] MEDS: OLANZapine 5 MG ODT (ZyPREXA ZYDIS) PO SCH (11:25)
[2022-11-20] MEDS: COLLAGENASE 30 GM (SANTYL) TUBE TP SCH (11:27)
--- NOTE | 2022-11-20 11:42 | Discharge Summary ---
Discharge Summary Hospital Course Problems/Dx: (1) Septic shock Status: Resolved (2) Acute respiratory failure Status: Acute Qualifiers: Qualified Codes: J96.01 - Acute respiratory failure with hypoxia (3) PNA (pneumonia) Status: Resolved (4) Lactic acidosis Status: Resolved (5) KARSTEN (acute kidney injury) Status: Resolved (6) NSTEMI (non-ST elevation myocardial infarction) Status: Resolved (7) Poor prognosis Status: Acute (8) Dementia with behavioral disturbance Status: Acute (9) Advancing dementia Status: Acute (10) Sacral decubitus ulcer Status: Acute Qualifiers: Qualified Codes: L89.150 - Pressure ulcer of sacral region, unstageable (11) History of intracranial hemorrhage Status: Chronic (12) Elevated d-dimer Status: Acute (13) Poor mobility Status: Acute Hospital Course Date of Admission: Nov 10, 2022 at 02:45 Admission Diagnosis : Septic shock Family Physician/Provider: Mai Harris MD Date of Discharge: 11/20/22 Discharge Diagnosis: Septic shock, advanced dementia Hospital Course: Pelon Mccarty is a 77 year old male with H dementia, sacral ulcer, history of intracranial hemorrhage, who was admitted with septic shock due to pneumonia. He was admitted to the ICU. He required endotracheal intubation. He was treated with fluids and antibiotics. His course was complicated by KARSTEN, lactic acidosis, AFib with RVR, and NSTEMI. He improved and was able to be extubated. He was physically debilitated. He had an unstageable sacral ulcer on admission. He remained lethargic and confused. His oxygen requirement improved. Palliative care was consulted. His chose to discharge home on hospice with [facility]. He was discharged home in poor condition. Labs and Pending Lab Test: Laboratory Tests 11/19/22 17:09: Glucometer 158H 11/19/22 23:37: Glucometer 105 11/20/22 05:04: Glucometer 101 Microbiology 11/12/22 Blood Culture - Final, Complete No growth 11/10/22 MRSA Screen - Final, Complete MRSA not isolated 11/10/22 Gram Stain - Final, Complete 11/10/22 Wound Culture - Final, Complete Mixed Bacterial Guera With Staphylococcus aureus YEAST 11/10/22 Urine Culture - Final, Complete NO GROWTH Home Meds Active Lorazepam Intensol (Lorazepam) 2 Mg/Ml Oral.conc 0.5 Ml PO Q2H PRN 7 Days Morphine Conc. 20mg/ml (Morphine Sulfate) 100 Mg/5 Ml (20 Mg/Ml) Solution 0.5 Ml PO Q2H PRN 7 Days Reported Atenolol 50 Mg Tablet 50 Mg PO DAILY Gabapentin 100 Mg Capsule 200 Mg PO BID TAKES 2 (100MG) CAPS Furosemide 20 Mg Tablet 20 Mg PO DAILY Olanzapine Odt (Olanzapine) 5 Mg Tab.rapdis 5 Mg PO BID Mirtazapine 7.5 Mg Tablet 7.5 Mg PO HS Amlodipine Besylate 5 Mg Tablet 5 Mg PO DAILY Memantine HCl 10 Mg Tablet 10 Mg PO BID Flomax (Tamsulosin HCl) 0.4 Mg Cap 0.4 Mg PO HS Assessment/Pt Instructions Discharged home on hospice with [facility] Discharge Planning: >30 minutes discharge planning Discharge Instructions Discharge Diet: No Restrictions Activity as Tolerated: Yes Discharge Physical Examination Vital Signs Vital Signs Date Time Temp Pulse Resp B/P (MAP) Pulse Ox O2 Delivery O2 Flow Rate FiO2 11/20/22 08:46 36.6 57 16 141/65 (90) 98 Nasal Cannula 2.00 11/17/22 02:24 97 General Appearance: No Apparent Distress, Chronically ill Respiratory: No Respiratory Distress, Crackles, Decreased Breath Sounds Cardiovascular: Regular Rate, Rhythm, No Murmur Gastrointestinal: Normal Bowel Sounds, Soft Extremity: Non Tender, Pedal Edema Skin: Normal Color, Warm/Dry Neurologic/Psychiatric: Disoriented, Motor Weakness, Other (lethargic, awakens to physical stimuli, does not open eyes, answers softly with one word responses) Allergies: Coded Allergies: No Known Allergies (Verified Allergy, Unknown, 11/10/22) Copy Copies To 1: MAI HARRIS MD Discharge Summary Date of Admission Nov 10, 2022 at 02:45 Date of Discharge Discharge Date: Nov 20, 2022 Discharge Time: 12:00 Admission Diagnosis Septic shock Comfort Measures/ End of Life Care: Pallative Care Discharge Diagnosis Likely aspiration pneumonia Acute respiratory failure with hypoxia Afib with RVR Advanced dementia Sacral ulcer Poor prognosis History of intracranial hemorrhage Debility Septic shock, resolved Endotracheally intubated, resolved Lactic acidosis, resolved KARSTEN, resolved NSTEMI, resolved (1) Septic shock Status: Resolved (2) Acute respiratory failure Status: Acute Qualifiers: Qualified Codes: J96.01 - Acute respiratory failure with hypoxia (3) PNA (pneumonia) Status: Resolved (4) Lactic acidosis Status: Resolved (5) KARSTEN (acute kidney injury) Status: Resolved (6) NSTEMI (non-ST elevation myocardial infarction) Status: Resolved (7) Poor prognosis Status: Acute (8) Dementia with behavioral disturbance Status: Acute (9) Advancing dementia Status: Acute (10) Sacral decubitus ulcer Status: Acute Qualifiers: Qualified Codes: L89.150 - Pressure ulcer of sacral region, unstageable (11) History of intracranial hemorrhage Status: Chronic (12) Elevated d-dimer Status: Acute (13) Poor mobility Status: Acute DEMAR MCCLAIN MD Nov 20, 2022 11:39
--- NOTE | 2022-11-20 11:42 | Physical Therapy Daily Note ---
PT Daily Note-Current Subjective Pt. in bed unresponsive, does not open eyes, is not verbal. Pain Location: No Pain Reported Section J - Health Conditions 1. Rarely or not at all 2. Occasionally 3. Frequently 4. Almost constantly 8. Unable to answer Pain Effect on Sleep: 8 Pain Interference with Therapy: 8 Pain Interference w/Day-to-Day: 8 Mental Status Patient Orientation: Unresponsive Attachments: Oxygen, Adams Catheter, Other-See Comments (SCDs , multi) Transfers SCALE: Activities may be completed with or without assistive devices. 5-Troignludv-sjnthmx completes the activity by him/herself with no assistance from a helper. 5-Set-up or Clean-up Assistance-helper sets up or cleans up; patient completes activity. [place] assists only prior to or following the activity. 4-Supervision or Touching Assistance-helper provides verbal cues and/or touching/steadying and/or contact guard assistance as patient completes activity. Assistance may be provided throughout the activity or intermittently. 3-Partial/Moderate Assistance-helper does LESS THAN HALF the effort. [place] lifts, holds or supports trunk or limbs, but provides less than half the effort. 2-Substantial/Maximal Assistance-helper does MORE THAN HALF the effort. [place] lifts or holds trunk or limbs and provides more than half the effort. 7-Onntpupha-vtjufq does ALL the effort. Patient does none of the effort to complete the activity. Or, the assistance of 2 or more helpers is required for the patient to complete the activity. If activity was not attempted, code reason: 7-Patient Refused. 9-Not Applicable-not attempted and the patient did not perform the activity before the current illness, exacerbation or injury. 10-Not Attempted due to Environmental Limitations-(lack of equipment, weather restraints, etc.). 88-Not Attempted due to Medical Conditions or Safety Concerns. no volitional movement, pt. was rolled and positioned with max assist to right side , pillows for support Exercises Supine Ex: Ankle pumps, Quad Set, Heel Slides, Straight leg raise, Hip abd/add Supine Reps: 12 Treatments exercise LEs all PROM, tone and resistance noted at times. 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 Goals Shelter Goals PT Shelter Goals Time Frame: Nov 23, 2022 Roll Left & Right (QC): 3 Sit to Lying (QC): 3 Lying-Sitting on Side/Bed(QC): 3 Sit to Stand (QC): 3 Chair/Hao-fj-Natlb Xfer(QC): 3 PT Plan Treatment/Plan Treatment Plan: Continue Plan of Care Treatment Plan: Bed Mobility, Education, Functional Activity Batool, Functional Strength, Gait, Safety, Therapeutic Exercise, Transfers Treatment Duration: Nov 23, 2022 Frequency: 5 times per week Estimated Hrs Per Day: .25 hour per day Patient and/or Family Agrees t: Yes Time Time In: 1125 Time Out: 1136 DATE: Nov 20, 2022 Total Billed Treatment Time: 11 Total Billed Treatment 1,EX11m 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
[2022-11-20 12:30] VITALS: BP 138/62
== END 2022-11-20 14:55 | disposition hospice, home (50) | DRG 870 ==
LOC: EDUNIT# 01:33 → ER 01:34 → ICU 02:45 → 4TH 11-19 13:17
PROVIDERS: ADMIT Internal Medicine; ATTEND Internal Medicine
PROC: 5A1955Z Respiratory Ventilation, Greater than 96 Consecutive Hours (ICD-10-PCS; principal; 2022-11-10)
PROC: 0BH17EZ Insertion of Endotracheal Airway into Trachea, Via Natural or Artificial Opening (ICD-10-PCS; 2022-11-10)
PROC: 5A2204Z Restoration of Cardiac Rhythm, Single (ICD-10-PCS; 2022-11-10)
PROC: 5A0935A Assistance with Respiratory Ventilation, Less than 24 Consecutive Hours, High Flow/Velocity Cannula (ICD-10-PCS; 2022-11-15)
DX: A41.89 Other specified sepsis (principal); G93.41 Metabolic encephalopathy; R65.21 Severe sepsis with septic shock; J15.211 Pneumonia due to Methicillin susceptible Staphylococcus aureus; J69.0 Pneumonitis due to inhalation of food and vomit; R57.0 Cardiogenic shock; J96.01 Acute respiratory failure with hypoxia; I21.A1 Myocardial infarction type 2; N17.0 Acute kidney failure with tubular necrosis; L03.818 Cellulitis of other sites; E46 Unspecified protein-calorie malnutrition; G93.1 Anoxic brain damage, not elsewhere classified; F03.918 Unspecified dementia, unspecified severity, with other behavioral disturbance; E87.0 Hyperosmolality and hypernatremia; E87.20 Acidosis, unspecified; I48.20 Chronic atrial fibrillation, unspecified; I48.92 Unspecified atrial flutter; Z66 Do not resuscitate; Z20.822 Contact with and (suspected) exposure to COVID-19; L89.150 Pressure ulcer of sacral region, unstageable; Z68.28 Body mass index [BMI] 28.0-28.9, adult; E11.22 Type 2 diabetes mellitus with diabetic chronic kidney disease; N18.30 Chronic kidney disease, stage 3 unspecified; E86.1 Hypovolemia; R00.1 Bradycardia, unspecified; E11.65 Type 2 diabetes mellitus with hyperglycemia; N40.0 Benign prostatic hyperplasia without lower urinary tract symptoms; Z91.81 History of falling; D64.9 Anemia, unspecified
CPT/HCPCS: 31500; 36415; 36569; 36600; 51702; 70450; 71045; 71275; 76937; 80053; 80306; 80320; 81000; 82140; 82150; 82550; 82553; 82805; 82947; 83605; 83690; 83735; 83874; 83880; 84100; 84443; 84484; 85007; 85025; 85027; 85379; 85610; 85652; 85730; 86141; 87040; 87070; 87077; 87081; 87088; 87186; 87205; 87449; 87636; 93005; 93041; 93306; 93880; 93970; 94002; 94003; 94640; 94799; 96361; 96365; 96372; 96375; 99291; 99292